=== PATIENT | female | born 1970 | race Caucasian/White ===

== ENCOUNTER → 2018-07-04 09:19 | Outpatient (CLI) | payer OTHER, SELFPAY ==
[2018-07-04 11:50] LABS: HCT 39.3 % (36.0-46.0); HGB 13.4 g/dL (12.0-15.5); Mean Corp. HGB Concentration 34.1 g/dL (32.0-36.0); Mean Corpuscular Hemoglobin 31.5 pg (27.0-33.0); Mean Corpuscular Volume 92.3 fL (80-95); Mean Platelet Volume 10.5 fL (8.0-11.0); Platelet Count 332 x1000/uL (130-400); RBC 4.26 m/cumm (4.00-5.20); RBC Distribution Width 12.9 % (11.7-14.6); White Blood Cell Count 12.84 k/cumm (4.4-10.8)
[2018-07-04 12:08] LABS: ALT 25 U/L (12-78); AST 23 U/L (15-37); Albumin 4.1 g/dL (3.4-5.0); Alkaline Phosphatase 89 U/L (46-116); Anion Gap 11.4 mmol/L (3-11); BUN 9 mg/dL (7-18); Bilirubin, Total 0.5 mg/dL (0.2-1.0); CO2 26.6 mmol/L (21.0-32.0); CREATININE 0.79 mg/dL (0.55-1.02); Calcium 9.9 mg/dL (8.5-10.1); Chloride 106 mmol/L (98-107); Glucose 83 mg/dL (70-100); Potassium 4.9 mmol/L (3.5-5.1); Sodium 144 mmol/L (136-145); TSH (W/Ref FT4) 1.22 uIU/mL (0.358-3.74); Total Protein 7.2 g/dL (6.4-8.2)
== END ==
PROVIDERS: PCP Family Medicine; Visit Provider Family Medicine
DX: D64.9 Anemia, unspecified (principal); R79.89 Other specified abnormal findings of blood chemistry
CPT/HCPCS: 36415; 80053; 85027; 84443

== ENCOUNTER 2018-07-18 11:00 | Outpatient (RCR) | payer OTHER, SELFPAY ==
--- NOTE | 2018-06-23 13:50 | NT_ITS ---
June 23, 2018 Yasmine cancelled todays scheduled appt due to a sick child. Rescheduled for next week.
--- NOTE | 2018-06-28 09:46 | PTTR_ITS ---
DATE: 06/28/18 SUBJECTIVE: Yasmine states that she is felling better in both her hip and neck. She c/o her hip snapping and popping with certain mvmts but denies pain when it happends. OBJECTIVE: Manual therapy: (50054w4). mobilizations of left hip including inferior glides, distractions and ROM. Stretching of hamstrings, ITB, piriformis in various positions. Hip flex/quads in modified Jermaine test position. STM t/o posterior hip and buttock with focus on glut medius, piriformis. CFM over pelvic brim, sacral border and greater trochanter. Declined the need for treatment on cervical region. Therapeutic procedures (40616h3). * x See flow sheet: for glut strength/ stabilization, consisting of bridging , SL hip ABD, clamshells and prone hip extension. * x Provided skilled instruction in proper exercise performance: proper glut engagement. declined the need for modalities. Direct treatment time: 45 min Total treatment time: 45 min.
--- NOTE | 2018-07-07 15:17 | PTTR_ITS ---
DATE: 07/07/18 SUBJECTIVE: Yasmine reports that she is doing well. She is experiencing much less discomfort and finds she can now lie on her side for much longer periods of time. She has been doing her HEP. Finds the prone hip extension ex to be difficult due to weakness. She reports she saw her MD earlier this week who felt she needed to start strengthening due to Yasmine not having estrogen. Yasmine states that she has a gym membership but has not been is quite some time. OBJECTIVE: Manual therapy: (00786j4). mobilizations of left hip including inferior glides and distractions via leg pulls. ROM t/o all planes. Stretching of hamstrings, ITB, piriformis and hip flex/quad in modified Jermaine test position. She went into prone and received continued stretching of quads. STM t/o posterior hip and buttock. PRT's of piriformis and TFL. CFM over greater trochanter.Verbally reviewed HEP, and changed her prone hip extension to standing. She declined cryo post session. She will be on vacation for one week and look to incorporate an in clinic ther ex routine. Direct treatment time: 35 min Total treatment time: 35 min.
--- NOTE | 2018-07-18 11:00 | PTTR_ITS ---
DATE: 07/18/18 SUBJECTIVE: Yasmine reports 85% improvement overall. She is noting significantly less pain, continues to feel kind of global fatigue and weakness, however does note she is looking to get on a more regular exercise regimen, blood work was obtained by her PCP. Has not heard results. Question anemia and possible thyroid. 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 She reports her shoulders are slightly more sore secondary to this. However she was staining a lot of doors, understands that this is normal as this is not a typical routine for her. Manual therapy: (75401w5). Soft tissue stretching to the L hamstring, ITB, piriformis, single knee to chest. This was followed with soft tissue to the L lateral thigh, cross friction over the greater trochanter followed by Therapeutic procedures ([id number]). Progression of stabilization, globally UE/LE working also on core activation. Will follow up with her once in the next week to 2 weeks with continued progression of stabilization, looking to wean from PT services toward a strong independent self management program as her symptoms tolerate. Direct treatment time: 45 mins Total treatment time: 45 mins KW/dl
== END 2018-07-22 23:59 | disposition home or self-care (01) ==
LOC: PT 11:00
PROVIDERS: PCP Family Medicine; Referring Provider Family Medicine; Visit Provider Family Medicine
DX: M25.552 Pain in left hip (principal); M54.2 Cervicalgia; N81.84 Pelvic muscle wasting; N39.3 Stress incontinence (female) (male)
CPT/HCPCS: 97110; 97140

== ENCOUNTER 2018-09-26 11:10 | Outpatient (CLI) | payer OTHER, SELFPAY ==
[2018-09-26 11:25] LABS: Abs Immature Grans 0.04 k/cumm (0.0-0.09); Absolute Basophil Count 0.02 k/cumm (0.0-0.2); Absolute Eosinophil Count 0.18 k/cumm (0.0-0.7); Absolute Lymphocyte Count 3.58 k/cumm (1.2-3.4); Absolute Monocyte Count 0.68 k/cumm (0.11-0.7); Absolute Neutrophil Count 6.78 k/cumm (1.2-6.7); Basophils % 0.2; Eosinophils % 1.6; HCT 35.8 % (36.0-46.0); HGB 12.3 g/dL (12.0-15.5); Immature Grans % 0.4; Lymphocytes % 31.7; Mean Corp. HGB Concentration 34.4 g/dL (32.0-36.0); Mean Corpuscular Hemoglobin 31.5 pg (27.0-33.0); Mean Corpuscular Volume 91.6 fL (80-95); Mean Platelet Volume 9.4 fL (8.0-11.0); Neutrophils % 60.1; Platelet Count 353 x1000/uL (130-400); RBC 3.91 m/cumm (4.00-5.20); RBC Distribution Width 12.6 % (11.7-14.6); White Blood Cell Count 11.28 k/cumm (4.4-10.8)
[2018-09-26 11:40] LABS: ALT 23 U/L (12-78); AST 19 U/L (15-37); Albumin 3.7 g/dL (3.4-5.0); Alkaline Phosphatase 86 U/L (46-116); Anion Gap 9.6 mmol/L (3-11); BUN 14 mg/dL (7-18); Bilirubin, Total 0.2 mg/dL (0.2-1.0); CO2 27.4 mmol/L (21.0-32.0); CREATININE 0.68 mg/dL (0.55-1.02); Calcium 8.6 mg/dL (8.5-10.1); Chloride 103 mmol/L (98-107); Glucose 116 mg/dL (70-100); Potassium 3.8 mmol/L (3.5-5.1); Sodium 140 mmol/L (136-145)
[2018-09-26 21:42] LABS: Estradiol <12 pg/ml
[2018-09-27 09:38] LABS: FSH 23.2 mIU/ml
== END 2018-09-26 11:30 ==
PROVIDERS: PCP Family Medicine; Visit Provider Internal Medicine
DX: Z85.3 Personal history of malignant neoplasm of breast (principal)
CPT/HCPCS: 36415; 80053; 82670; 83001; 85025

== ENCOUNTER 2018-10-09 17:44 | Emergency (ER) | payer OTHER, SELFPAY ==
[2018-10-09] VITALS (33 sets, daily range): BP systolic 121–144; BP diastolic 66–82; PULSE 75–99; RESP 15–26; TEMP 37–37.2; O2SAT 95–99
--- NOTE | 2018-10-09 18:16 | DI.CT_ITS ---
SYMPTOM/DIAGNOSIS: RT SIDED CHEST PAIN, R/O PE CT ANGIOGRAPHY CHEST: 10/09 CT angiography of the chest was performed with intravenous infusion of 60 cc Omnipaque 350. Images obtained through the upper abdomen show unremarkable appearance of visualized portions of liver, spleen, pancreas, adrenals and kidneys. There is no evidence of pulmonary embolic disease. No thoracic aortic aneurysm or dissection. No mediastinal mass or adenopathy. Tracheobronchial tree appears intact. There is mild apical pleural thickening at the right lung apex which is nonspecific. No previous CT available for comparison. The possibility of neoplastic disease statistically unlikely but follow up chest CT should probably be obtained in six months to re-evaluate this area. Otherwise, lungs are clear. No pleural effusion seen. No pneumothorax. CONCLUSION: No evidence of acute pulmonary embolic disease or other significant acute finding. Asymmetric right apical pleural based radiodensities probably related to scarring, neoplastic disease not entirely excluded and follow up chest CT recommended in six months.
--- NOTE | 2018-10-09 18:16 | DI.CT_ITS ---
SYMPTOM/DIAGNOSIS: RT SIDED NECK PAIN, FEVER, R/O ABSCESS VS MASS CT NECK: 10/09 CT examination of the cervical region was performed with intravenous infusion of 40 cc Omnipaque 350. Tracheolaryngeal structures appear intact. No superior mediastinal mass or adenopathy. No neck mass or adenopathy. Vascular structures appear intact. Right apical pleural thickening again noted as seen on chest CT, 6 month follow up chest CT recommended. Orbital structures and visualized temporal bone structures appear intact. The visualized paranasal sinuses and mastoid air cells are clear. Salivary glands are unremarkable in appearance. CONCLUSION: No neck mass identified. No evidence of abscess. Right apical pleural thickening noted, nonspecific, follow up chest CT recommended in 6-months to rule out neoplastic disease.
--- NOTE | 2018-10-09 18:16 | DI.CT_ITS ---
SYMPTOM/DIAGNOSIS: RT SIDED HEADACHE/EAR PAIN, R/O ACUTE DISEASE CRANIAL CT (WITHOUT CONTRAST): 10/[address] was performed. The ventricular system is normal in appearance. There is no evidence of an intracranial mass lesion. There is no evidence of a subdural or epidural hematoma. No focal areas of decreased attenuation are seen. CONCLUSION: Normal noncontrast Cranial CT.
--- NOTE | 2018-10-09 18:31 | ED.GENADUL_ITS ---
Discharge Plan Disposition Patient Disposition: STILL A PATIENT Condition: Stable Discharge Details Chief Complaint: GenMedical Clinical Impression: Ear pain, right, Neck pain on right side, Right-sided chest pain Primary Care Provider: Kati Rubio ED Provider: Kait Mandel Home Meds and New Rx's Prescriptions: New clindamycin HCl 150 mg capsule 450 mg PO TID 7 Days Qty: 63 RF: 0 azithromycin 250 mg tablet See Label Instructions .ROUTE .COMPLEX Qty: 6 RF: 0 Continue multivitamin [Multi-Day] 1 EACH tablet 1 ea PO DAILY RF: 0 tamoxifen 20 MG tablet 20 mg PO DAILY RF: 0 ibuprofen 800 MG tablet 800 mg PO BID RF: 0 levothyroxine 50 MCG tablet 50 mcg PO DAILY Qty: 90 RF: 12 omeprazole magnesium [Prilosec OTC] 20 mg tablet,delayed release (DR/EC) 20 mg PO DAILY Qty: 90 RF: 12 amoxicillin 500 mg tablet 500 mg PO TID Qty: 21 RF: 0 loratadine [Claritin RediTabs] 10 MG tablet,disintegrating 1 tab PO DAILY PRNRF: 0 acetaminophen 650 mg Tablet Extended Release 1,300 mg PO BID RF: 0 naproxen sodium [Aleve] 220 mg Capsule 220 mg PO BID PRNRF: 0 Discharge Instructions Instructions: Chest Pain (ED), Earache (ED), Pneumonia (ED), Neck Pain (ED) Additional Instructions: If your symptoms do not improve or worsen over the next few days, you may start the antibiotics. Be aware of any change in symptoms, including development of rash which may indicate shingles. Call your primary care doctor tomorrow to schedule follow-up appointment for reevaluation. Return immediately to the emergency department any worsening or new concerning symptoms. Referrals: Kati Rubio MD, [place] [Primary Care Provider] - Discharge Data Discharge Date/Time-TO BE ENTERED AT DEPARTURE: 10/09/18 21:36 Discharge Physician: Kait Mandel Medical Decision Making <Kait Mandel DO - Last Filed: 10/10/18 10:03> 48 yo M w/ a h/o breast cancer treated with chemo and radiation in remission since 2011 who presents with right sided head, ear, face, neck and chest pain for the past 5-days. Finished amoxicillin 5 days ago for a sinus infection which is since resolved. She does admit to fever of 101.4 today. She also admits to shortness of breath. She states the pain in her neck and chest is worse with deep breath and palpation and movement of her head. Heart rate 90s. Blood pressure mildly hypertensive. Afebrile. Normal oxygen saturation and respiratory rate. Patient appears mildly uncomfortable with movement of her head. Normal ENT exam. Right anterior chest tender to palpation. No rash noted on exam. Differential diagnosis includes possible ENT/neck/respiratory infectious process , shingles, PE, lymphatic process due to lymph node resection on R s/p mastectomy. Will place an IV, bolus IV fluids, cardiac workup, EKG, CT head/neck/chest to rule out PE. EKG notes a rate of 95, sinus, occasional PVCs. No acute ST elevation or depression. QTc 470. QRS 90. 1999 --labs reviewed and note a white blood cell count of 14.6. Remainder of labs unremarkable. Troponin negative. CT head and CT chest negative. CT neck pending. Pt feels better after toradol, pain decreased. 2039 --case endorsed to Dr. Fields to follow-up on CT neck. CT neck negative, will send home with a prescription for clindamycin to start if symptoms do not improve or worsen as patient complained of a fever and had an elevated white blood cell count. Discussed with patient that her symptoms could be due to possible infectious process, or shingles and to be aware of any development of rash. She is instructed to call her primary care doctor for reevaluation and to return here if worse. <Narinder Fields, - Last Filed: 10/09/18 21:21> The case was signed out to me my my colleague Dr. Mandel. Plan was pending CT scan of the neck. If the neck CT showed no significant abnormality requiring intervention the patient will be discharged home with clindamycin. Patient CT scan of the neck demonstrates no neck abscess or mass, normal bilateral apical groundglass opacities that are nonspecific and right apical pleural thickening. Patient maintains hemodynamic stability, no fever, no significant tachycardia. And reassuring vital signs in general. Because of the elevated white count, a prescription will be given for clindamycin for uncertain infectious etiology. IMPRESSION: 1. No neck abscess or mass identified. 2. Minimal bilateral apical groundglass opacities, nonspecific. 3. Right apical pleural thickening. Dictated and Authenticated by: Max Cowan MD. HPI <Kait Alanis Mandel DO - Last Filed: 10/10/18 10:03> General Mode of arrival: ambulatory . Date/Time Provider Initiated Documentation: 10/09/18 17:55 . Limitations to Documentation: no limitations . Information obtained by: patient . HPI Narrative: Patient is a 48-year-old female with a history of breast cancer in remission since 2011 on tamoxifen who presents with right sided head, ear, throat, neck and chest pain for the past 5 days. Patient states the pain started in the right side of her head and neck and then went down into her chest. She states the pain in her neck and right chest is worse with deep breath. She admits to some shortness of breath. She states her chest pain is intermittent and aching and worse with palpation and deep breath. She states the pain is currently 5/10. She admits to some relief with Advil. She does admit to pain within her right ear and a sore throat. She does admit to a fever today of 101.4. She states she finished amoxicillin 5 days ago for a sinus infection. She states she was not seen by her PCP but the antibiotic was called into the pharmacy. She states she had been having nasal congestion and discharge which has since resolved. She denies rash, recent travel, surgeries or leg pain or swelling. Past medical history: Breast cancer, treated with chemo & radiation and mastectomy in 2011, hypothyroidism Surgical History: Cholecystectomy, tonsillectomy, lymph node resection, right partial mastectomy Social history: Occasional tobacco, drinks 3 times weekly, denies drugs Medications: Tamoxifen, Synthroid, Claritin Allergies: Effexor, fluconazole PCP: Dr. Rubio Related Data Home Medications Medication Instructions Recorded Confirmed multivitamin [Multi-Day] 1 ea PO DAILY 06/22/13 10/09/18 tamoxifen 20 mg PO DAILY tab-cap 06/22/13 10/09/18 loratadine [Claritin RediTabs] 1 tab PO DAILY PRN 12/12/15 10/09/18 ibuprofen 800 mg PO BID 02/02/17 10/09/18 levothyroxine 50 mcg PO DAILY #90 tab-cap 07/11/18 10/09/18 omeprazole magnesium 20 mg 20 mg PO DAILY #90 tab-cap 08/22/18 10/09/18 tablet,delayed release amoxicillin 500 mg tablet 500 mg PO TID #21 tab 09/28/18 acetaminophen 1,300 mg PO BID 10/09/18 10/09/18 azithromycin See Label Instructions .ROUTE 10/09/18 .COMPLEX #6 tab clindamycin HCl 450 mg PO TID 7 Days #63 cap 10/09/18 naproxen sodium [Aleve] 220 mg PO BID PRN 10/09/18 10/09/18 Previous Rx's Medication Instructions Recorded levothyroxine 50 mcg PO DAILY #90 tab-cap 07/11/18 omeprazole magnesium 20 mg 20 mg PO DAILY #90 tab-cap 08/22/18 tablet,delayed release amoxicillin 500 mg tablet 500 mg PO TID #21 tab 09/28/18 azithromycin See Label Instructions .ROUTE 10/09/18 .COMPLEX #6 tab clindamycin HCl 450 mg PO TID 7 Days #63 cap 10/09/18 Allergies Allergy/AdvReac Type Severity Reaction Status Date / Time fluconazole Allergy Intermediate TONGUE AND Verified 10/09/18 17:55 LIPS SWELLING latex Allergy RASH Verified 10/09/18 17:55 adhesive AdvReac Intermediate RASH Verified 10/09/18 17:55 venlafaxine HCl AdvReac NAUSEA Verified 10/09/18 17:55 [From Effexor] General Stated Complaint: GenMedical LELE: 3 Review of Systems <Kait Mandel DO - Last Filed: 10/10/18 10:03> Review of Systems All systems reviewed & are unremarkable except as noted in HPI and below Constitutional Denies chills, Denies excessive sweating, Denies fatigue, Reports fever(s), Denies weakness and Denies weight loss Eyes Reports system reviewed and no additional complaints, except as docu and Denies blurry vision ENT Denies vertigo, Denies dizziness, Reports otalgia, Denies nasal congestion, Reports sore throat and Denies throat swelling Cardiovascular Reports chest pain, Denies syncope, Denies rapid heart rate and Denies dyspnea Respiratory Denies dyspnea Gastrointestinal Denies abdominal pain, Denies diarrhea and Denies vomiting Genitourinary Denies hematuria, Denies dysuria and Denies flank pain Musculoskeletal Denies back pain and Denies joint swelling Integumentary/Breasts Denies lesions and Denies rash Neurologic Denies behavioral changes, Denies confusion, Denies vertigo, Denies dizziness, Denies syncope and Denies weakness Psychiatric Denies behavioral changes, Denies confusion and Denies depression Endocrine Denies excessive sweating and Denies fatigue Hematologic/Lymphatic Denies easy bruising and Denies lymphadenopathy Allergic/Immunologic Denies throat swelling Exam <Kait Mandel DO - Last Filed: 10/10/18 10:03> Const General: cooperative and healthy appearing Orientation: alert and awake HENRI Head: normal to inspection Ears: hearing grossly normal bilaterally, external ears normal and TM's normal bilaterally General nose exam: external nose normal Face and sinus: normal facial exam Mouth: oral mucosae normal Teeth and gingiva: dentition normal Throat: posterior oropharynx normal Eyes General: appearance normal, both eyes and all related structures Eyelids: eyelids normal Pupils: PERRL EOM: EOM intact bilaterally Neck Neck: normal visual inspection Lymphatic: no lymphadenopathy noted Chest Chest: normal inspection of the chest and tenderness (R anterior chest) Resp Effort & Inspection: normal respiratory effort and able to speak in complete sentences Auscultation: clear to auscultation bilaterally Cardio Rate: regular rate Rhythm: regular rhythm GI Inspection: normal to inspection Palpation: soft, not firm, no guarding, no hepatosplenomegaly, no masses and nontender Auscultation: normal bowel sounds Skin General skin exam: no rashes or lesions noted Neuro General: alert, awake and oriented x3 Cranial Nerves: CN's II-XI intact bilaterally Cognition: normal cognition Speech: speech normal Gait: normal gait Motor: muscle tone normal throughout and strength 5/5 throughout Sensory Exam: no sensory deficits noted Extrem General: normal to inspection, full ROM and normal capillary refill Psych Appearance: grossly normal Mental Status: mental status grossly normal Speech and Movement: speech and movement normal Affect: normal affect Thought Process: normal Course <Kait Mandel DO - Last Filed: 10/10/18 10:03> Vital Signs Temperature 98.6 F 10/09/18 17:50 Pulse 97 H 10/09/18 17:50 Respiratory Rate 23 10/09/18 17:50 Blood Pressure 144/77 H 10/09/18 17:50 Pulse Oximetry 96 10/09/18 17:50 Temperature 98.6 F 10/09/18 17:50 Temperature Source Temporal Artery Scan 10/09/18 17:50 Pulse 96 H 10/09/18 18:08 Respiratory Rate 18 10/09/18 18:08 Respiratory Effort Non-Labored 10/09/18 18:08 Respiratory Depth Normal 10/09/18 18:08 Respiratory Pattern Normal 10/09/18 18:08 Blood Pressure 129/80 10/09/18 18:08 Blood Pressure Position Supine 10/09/18 17:50 Pulse Oximetry 96 10/09/18 18:08 Oxygen Delivery Method Room Air 10/09/18 17:50 Oxygen Flow Rate 0 10/09/18 17:50 Pain Level 5 10/09/18 17:50
[2018-10-09 18:34] LABS: Abs Immature Grans 0.03 k/cumm (0.0-0.09); Absolute Basophil Count 0.04 k/cumm (0.0-0.2); Absolute Eosinophil Count 0.35 k/cumm (0.0-0.7); Absolute Lymphocyte Count 4.73 k/cumm (1.2-3.4); Absolute Monocyte Count 0.89 k/cumm (0.11-0.7); Basophils % 0.3; Eosinophils % 2.4; HCT 36.4 % (36.0-46.0); HGB 12.7 g/dL (12.0-15.5); Immature Grans % 0.2; Lymphocytes % 32.4; Mean Corp. HGB Concentration 34.9 g/dL (32.0-36.0); Mean Corpuscular Hemoglobin 31.8 pg (27.0-33.0); Mean Platelet Volume 9.6 fL (8.0-11.0); Monocytes % 6.1; Neutrophils % 58.6; Platelet Count 314 x1000/uL (130-400); RBC Distribution Width 12.7 % (11.7-14.6); White Blood Cell Count 14.61 k/cumm (4.4-10.8)
[2018-10-09] MEDS: Normal Saline 1,000 ML 1000 ML IV (18:34)
[2018-10-09 18:36] LABS: Absolute Neutrophil Count 8.56 k/cumm (1.2-6.7)
[2018-10-09 18:49] LABS: ALT 24 U/L (12-78); AST 21 U/L (15-37); Albumin 3.7 g/dL (3.4-5.0); Alkaline Phosphatase 84 U/L (46-116); Anion Gap 11.5 mmol/L (3-11); BUN 18 mg/dL (7-18); Bilirubin, Total 0.3 mg/dL (0.2-1.0); CO2 25.5 mmol/L (21.0-32.0); Calcium 9.5 mg/dL (8.5-10.1); Chloride 105 mmol/L (98-107); Glucose 107 mg/dL (70-100); Magnesium 1.9 mg/dL (1.8-2.4); Potassium 3.4 mmol/L (3.5-5.1); Sodium 142 mmol/L (136-145)
[2018-10-09 18:50] LABS: Troponin I < 0.02 ng/mL (0.00-0.06)
[2018-10-09] MEDS: Omnipaque 350 MG/ML 100 ML BTL IJ (19:35)
[2018-10-09] MEDS: Ketorolac 30 MG/ML VIAL IVP (19:46)
--- NOTE | 2018-10-09 19:52 | DI.VRAD_ITS ---
EXAM: CT Head Without Intravenous Contrast EXAM DATE/TIME: 10/09/2018 6:19 PM CLINICAL HISTORY: 48 years old, female; Pain; Headache; Other: RT sided; Patient HX: Recent sinus infection, ear and head pain (rt sided) TECHNIQUE: Axial computed tomography images of the head/brain without intravenous contrast. All CT scans at this facility use at least one of these dose optimization techniques: automated exposure control; mA and/or kV adjustment per patient size (includes targeted exams where dose is matched to clinical indication); or iterative reconstruction. Coronal and sagittal reformatted images were created and reviewed. COMPARISON: MRI - BRAIN W/WO CONTRAST 02/24/2016 8:16 AM FINDINGS: Brain: Normal. No hemorrhage. No significant white matter disease. No edema. Ventricles: Normal. No ventriculomegaly. Bones/joints: Normal. No acute fracture. Sinuses: Small mucous attention cyst/polyp of the left sphenoid sinus. Mastoid air cells: Normal as visualized. No mastoid effusion. Soft tissues: Normal. IMPRESSION: No acute intracranial abnormality. Dictated and Authenticated by: Tima Grande MD. Ordering:LALO MAYO MD
--- NOTE | 2018-10-09 20:01 | DI.VRAD_ITS ---
EXAM: CT Angiography Chest With Intravenous Contrast EXAM DATE/TIME: 10/09/2018 6:19 PM CLINICAL HISTORY: 48 years old, female; Pain; Chest pain; Right-sided chest pain; Additional info: 18 g lt forearm, only iv possible TECHNIQUE: Axial computed tomographic angiography images of the chest with intravenous contrast using CT angiography protocol. All CT scans at this facility use at least one of these dose optimization techniques: automated exposure control; mA and/or kV adjustment per patient size (includes targeted exams where dose is matched to clinical indication); or iterative reconstruction. Coronal and sagittal reformatted images were created and reviewed. MIP reconstructed images were created and reviewed. CONTRAST: 60 ml of Omnipaque 350 administered intravenously. COMPARISON: CT Chest / Abdomen / P 12/04/2011 1:56 PM FINDINGS: Pulmonary arteries: Normal. No pulmonary emboli. Aorta: Normal. No aortic aneurysm. No aortic dissection. Lungs: Normal. No consolidation. No masses. Pleural space: Right apical pleural scarring. Heart: Normal. No cardiomegaly. No pericardial effusion. Bones/joints: Unremarkable. No acute fracture. Soft tissues: Unremarkable. Lymph nodes: Unremarkable. No enlarged lymph nodes. IMPRESSION: No pulmonary embolism. Dictated and Authenticated by: Tima Grande MD. Ordering:LALO MAYO MD
--- NOTE | 2018-10-09 20:53 | DI.VRAD_ITS ---
EXAM: CT Neck With Intravenous Contrast EXAM DATE/TIME: 10/09/2018 6:19 PM CLINICAL HISTORY: 48 years old, female; Pain; Neck pain and throat pain; Patient HX: RT sided neck pain, fever, rule out abscess or mass; Additional info: PT received 60 ml 5 min prior to second injection of 40 ml TECHNIQUE: Axial computed tomography images of the neck with intravenous contrast. All CT scans at this facility use at least one of these dose optimization techniques: automated exposure control; mA and/or kV adjustment per patient size (includes targeted exams where dose is matched to clinical indication); or iterative reconstruction. Coronal and sagittal reformatted images were created and reviewed. CONTRAST: 40 ml of Omnipaque 350 administered intravenously. COMPARISON: CR CERV SP.WITH OBL OR FLEX/EXT 04/28/2018 3:08 PM FINDINGS: Nasopharynx: Normal. Oropharynx: Normal. No significant tonsillar enlargement. No peritonsillar abscess. Hypopharynx: Normal. Larynx: Normal. Normal epiglottis. Trachea: Normal. Retropharyngeal space: Unremarkable retropharyngeal soft tissues. Submandibular/Parotid glands: Normal. Glands are normal in size. Thyroid: Normal. No enlarged or calcified nodules. Bones/joints: Normal. No acute fracture. Soft tissues: Normal. No significant soft tissue swelling. No mass or abscess identified. Vasculature: No acute findings. Lymph nodes: Small nonspecific lymph nodes within the visualized portions of the upper mediastinum. Lung apices: Paraseptal emphysema within the lung apices. Bilateral upper lung zone patchy groundglass opacities, nonspecific. Right apical pleural thickening. IMPRESSION: 1. No neck abscess or mass identified. 2. Minimal bilateral apical groundglass opacities, nonspecific. 3. Right apical pleural thickening. Dictated and Authenticated by: Max Cowan MD. Ordering:LALO MAYO MD
== END 2018-10-09 21:36 | disposition still patient (30) ==
PROVIDERS: Emergency Provider Physician Assistant; PCP Family Medicine
DX: H92.01 Otalgia, right ear (principal); M54.2 Cervicalgia; R07.89 Other chest pain; R50.9 Fever, unspecified; D72.829 Elevated white blood cell count, unspecified; Z85.3 Personal history of malignant neoplasm of breast; Z90.11 Acquired absence of right breast and nipple
CPT/HCPCS: 36415; 70491; 71275; 80053; 81025; 93005; 96361; 96374; 99285; 70450; 83735; 84484; 85025; 93010; J1885; J3490

== ENCOUNTER 2018-10-25 08:56 | Outpatient (CLI) | payer OTHER, SELFPAY ==
[2018-10-25 11:54] LABS: Abs Immature Grans 0.04 k/cumm (0.0-0.09); Absolute Basophil Count 0.04 k/cumm (0.0-0.2); Absolute Eosinophil Count 0.24 k/cumm (0.0-0.7); Absolute Lymphocyte Count 3.65 k/cumm (1.2-3.4); Absolute Monocyte Count 0.62 k/cumm (0.11-0.7); Absolute Neutrophil Count 5.96 k/cumm (1.2-6.7); Basophils % 0.4; Eosinophils % 2.3; HCT 37.5 % (36.0-46.0); HGB 12.6 g/dL (12.0-15.5); Immature Grans % 0.4; Lymphocytes % 34.6; Mean Corp. HGB Concentration 33.6 g/dL (32.0-36.0); Mean Corpuscular Hemoglobin 30.8 pg (27.0-33.0); Mean Corpuscular Volume 91.7 fL (80-95); Mean Platelet Volume 9.8 fL (8.0-11.0); Monocytes % 5.9; Neutrophils % 56.4; Platelet Count 329 x1000/uL (130-400); RBC 4.09 m/cumm (4.00-5.20); RBC Distribution Width 12.9 % (11.7-14.6); White Blood Cell Count 10.55 k/cumm (4.4-10.8)
[2018-10-25 12:26] LABS: ALT 32 U/L (12-78); AST 28 U/L (15-37); Albumin 3.7 g/dL (3.4-5.0); Alkaline Phosphatase 72 U/L (46-116); Anion Gap 11.3 mmol/L (3-11); BUN 17 mg/dL (7-18); Bilirubin, Total 0.5 mg/dL (0.2-1.0); CO2 24.7 mmol/L (21.0-32.0); CREATININE 0.73 mg/dL (0.55-1.02); Calcium 9.3 mg/dL (8.5-10.1); Chloride 104 mmol/L (98-107); Glucose 86 mg/dL (70-100); Potassium 4.4 mmol/L (3.5-5.1); Sodium 140 mmol/L (136-145); Total Protein 6.8 g/dL (6.4-8.2)
== END 2018-10-25 09:16 ==
PROVIDERS: PCP Family Medicine; Visit Provider Family Medicine
DX: E87.6 Hypokalemia (principal); F17.200 Nicotine dependence, unspecified, uncomplicated; J20.9 Acute bronchitis, unspecified
CPT/HCPCS: 80053; 85025

== ENCOUNTER 2018-12-20 00:47 | Outpatient (CLI) | payer OTHER, SELFPAY ==
--- NOTE | 2018-12-20 15:46 | DI.RAD_ITS ---
SYMPTOM/DIAGNOSIS: PNEUMONIA, J18.9, ABNL CT PA AND LATERAL CHEST: Comparison is made with 11/08/15 chest xray and chest CT dated 10/09/18. There is no pleural effusion or pulmonary edema seen. The minimal scarring at the right lung apex is not well seen on chest xray. The chest xray appears unchanged from 2015. IMPRESSION: Negative chest xray.
== END 2018-12-20 01:07 ==
PROVIDERS: PCP Family Medicine; Visit Provider Family Medicine
DX: J18.9 Pneumonia, unspecified organism (principal)
CPT/HCPCS: 71046

== ENCOUNTER 2019-01-27 01:04 | Outpatient (CLI) | payer OTHER, SELFPAY ==
[2019-01-27 14:07] LABS: HCT 36.5 % (36.0-46.0); HGB 12.4 g/dL (12.0-15.5); Mean Corpuscular Hemoglobin 31.2 pg (27.0-33.0); Mean Corpuscular Volume 91.7 fL (80-95); Mean Platelet Volume 9.4 fL (8.0-11.0); Platelet Count 310 x1000/uL (130-400); RBC 3.98 m/cumm (4.00-5.20); RBC Distribution Width 12.4 % (11.7-14.6)
[2019-01-27 16:05] LABS: ALT 34 U/L (12-78); AST 23 U/L (15-37); Alkaline Phosphatase 83 U/L (46-116); BUN 9 mg/dL (7-18); Bilirubin, Total 0.3 mg/dL (0.2-1.0); CREATININE 0.75 mg/dL (0.55-1.02); Calcium 9.7 mg/dL (8.5-10.1); Chloride 103 mmol/L (98-107); Glucose 99 mg/dL (70-100); Potassium 4.3 mmol/L (3.5-5.1); Sodium 142 mmol/L (136-145); TSH (W/Ref FT4) 1.51 uIU/mL (0.358-3.74); Total Protein 7.2 g/dL (6.4-8.2); Vitamin B12 639 pg/mL (193-986)
== END 2019-01-27 01:24 ==
PROVIDERS: PCP Family Medicine; Visit Provider Family Medicine
DX: Z00.00 Encounter for general adult medical examination without abnormal findings (principal); E03.9 Hypothyroidism, unspecified; R53.81 Other malaise; R53.83 Other fatigue; R79.89 Other specified abnormal findings of blood chemistry
CPT/HCPCS: 36415; 80053; 85027; 82607; 84443

== ENCOUNTER 2019-05-18 08:59 | Outpatient (REF) | payer OTHER, SELFPAY ==
--- NOTE | 2019-05-18 08:30 | PAPFT_PTH ---
PATIENT: Yasmine Matthew LOC: [facility] U#:[id number] AGE/SX: 48/F ROOM: RE05/18/[address]: JACQUES Salcedo : 1970 BED: DIS: 05/18/2019 SPEC #: [id number] RECD: 05/18/19 13:02 STATUS: NAMRATA QUINTEROS #: [id number] RENE: 05/18/19 08:[address]: Tatyana Lee DEPT: [facility] Cytology RECD BY: Jolene Ram ENTERED: 05/18/19 13:02 SP TYPE: PAPFT KARISHMA DR: Kati Rubio MD, DC Tissues: 1 - CX/ENDOCX FOR PAP SMEARS Procedures: PAP THIN PREP/U[facility] Screening HPV DNA PROBE Comments: [id number]
== END 2019-05-18 09:19 ==
LOC: LBN 08:59
PROVIDERS: PCP Family Medicine; Visit Provider Nurse Practitioner Family
DX: R35.0 Frequency of micturition (principal); Z12.4 Encounter for screening for malignant neoplasm of cervix; Z11.51 Encounter for screening for human papillomavirus (HPV)
CPT/HCPCS: 88142; 87086; 87624

== ENCOUNTER 2019-05-26 13:03 | Outpatient (REF) | payer OTHER, SELFPAY ==
--- NOTE | 2019-05-26 11:45 | VUL_PTH ---
PATIENT: Yasmine Matthew LOC: [facility] U#:[id number] AGE/SX: 49/F ROOM: RE05/26/[address]: Wiley Garcia MD : 1970 BED: DIS: 05/26/2019 SPEC #: [id number] RECD: 05/29/19 12:38 STATUS: NAMRATA REDot #: [id number] RENE: 05/26/19 11:[address]: Wiley Garcia DEPT: Surgical Specimen RECD BY: Jolene Ram ENTERED: 05/29/19 12:39 SP TYPE: VUL OTHR DR: Kati Rubio MD, DC Tatyana Lee INJECTION OPERATOR Tissues: 1 - VULVA BIOPSY Procedures: GROSS AND MICRO LEVEL 4 Comments: [id number]
== END 2019-05-26 13:23 ==
LOC: LBN 13:03
PROVIDERS: PCP Family Medicine; Visit Provider Obstetrics & Gynecology
DX: N90.1 Moderate vulvar dysplasia (principal)
CPT/HCPCS: 88305

== ENCOUNTER 2019-06-08 01:13 | Outpatient (CLI) | payer OTHER, SELFPAY ==
--- NOTE | 2019-06-08 07:58 | DI.US_ITS ---
SYMPTOM/DIAGNOSIS: LONG HISTORY OF TAMOXIFEN USE Z79.810 PELVIC ULTRASOUND: A transabdominal and transvaginal examination was carried out. The uterus is retroverted measuring 6.8 cm in length, 4.0 cm in height and 4.8 cm in width. The endometrium is heterogeneous and is 6.3 mm thick. The right ovary measures 1.5 x 1.2 x 09 cm. The left ovary 1.8 x 0.7 x 0.7 cm. There is no evidence of free fluid in the cul de sac. SUMMARY: The endometrial stripe measures 6.23 mm in thickness and is heterogeneous. The examination is otherwise unremarkable.
== END 2019-06-08 01:33 ==
PROVIDERS: PCP Family Medicine; Visit Provider Obstetrics & Gynecology
DX: Z79.810 Long term (current) use of selective estrogen receptor modulators (SERMs) (principal); N85.4 Malposition of uterus
CPT/HCPCS: 76830; 76856

== ENCOUNTER 2019-07-20 06:16 | Day surgery (SDC) | payer OTHER, SELFPAY ==
[2019-07-20 06:28] VITALS: BP 118/76; PULSE 91; RESP 18; TEMP 36.4; O2SAT 99
[2019-07-20 07:03] LABS: HCT 36.6 % (36.0-46.0); HGB 12.4 g/dL (12.0-15.5); Mean Corp. HGB Concentration 33.9 g/dL (32.0-36.0); Mean Corpuscular Hemoglobin 31.6 pg (27.0-33.0); Mean Corpuscular Volume 93.4 fL (80-95); Mean Platelet Volume 9.8 fL (8.0-11.0); Platelet Count 330 x1000/uL (130-400); RBC 3.92 m/cumm (4.00-5.20); RBC Distribution Width 12.4 % (11.7-14.6); White Blood Cell Count 10.12 k/cumm (4.4-10.8)
[2019-07-20] MEDS: Lactated Ringers 1,000 ML 125 ML IV (07:45)
[2019-07-20] MEDS: Lidocaine 1% Multi-Dose 50 ML VIAL (08:14)
--- NOTE | 2019-07-20 08:21 | ENDOMET_PTH ---
PATIENT: Yasmine Matthew LOC: [facility] U#:[id number] AGE/SX: 49/F ROOM: RE07/20/[address]: Wiley Garcia MD : [id number] BED: DIS: 07/20/2019 SPEC #: [id number] RECD: 07/20/19 12:12 STATUS: NAMRATA QUINTEROS #: [id number] RENE: 07/20/19 08:[address]: Wiley Garcia DEPT: Surgical Specimen RECD BY: Jolene Ram ENTERED: 07/20/19 12:13 SP TYPE: Endomet OTHR DR: Kati Rubio MD, DC Tissues: 1 - ENDOMETRIUM BX/CURRETTE 2 - VULVA BIOPSY Procedures: GROSS AND MICRO LEVEL 4 GROSS AND MICRO LEVEL 6 Comments: [id number]
[2019-07-20] MEDS: Bupivacaine 0.25% Pres-Free 30 ML VIAL (08:27)
[2019-07-20 08:49] VITALS: BP 92/56; PULSE 82; RESP 16; TEMP 36.7; O2SAT 96
[2019-07-20 08:54] VITALS: BP 90/69; PULSE 82; RESP 15; TEMP 36.7; O2SAT 97
[2019-07-20 08:59] VITALS: BP 99/63; PULSE 76; RESP 14; TEMP 36.7; O2SAT 98
[2019-07-20 09:04] VITALS: BP 101/75; PULSE 82; RESP 20; TEMP 36.7; O2SAT 99
[2019-07-20 10:19] VITALS: BP 109/73; PULSE 71; RESP 16; TEMP 36.2; O2SAT 97
--- NOTE | 2019-07-21 21:46 | W.PM.OP ---
Date of service: 07/20/19 Operative Note DATE OF PROCEDURE: 07/20/19 PRE-OP DIAGNOSIS: 1. Thickened endometrium 2. OUMAR 2 POST-OP DIAGNOSIS: same PROCEDURE: 1. Hysteroscopy D&C 2. Wide local exicsion of vulvar lesion SURGEON: Wiley Garcia ANESTHESIA: LIZ ESTIMATED BLOOD LOSS: 30 PATHOLOGY: other (1. Endometrial curettings. 2. Vulvar lesion) COMPLICATIONS: None Patient was transported to: PACU Patient's condition: stable Indications: 1. Thickened endometrium on ultrasound with a history of tamoxifen use. 2. Vulvar biopsy yielding OUMAR 2 with positive margins. Findings: The patient was examined immediately preoperatively. The vulvar lesion that had previously been excised in the office was no longer visible. I was not able to visualize any vulvar lesion on exam. With the assistance of the patient the area of excision was marked with a marking pen. Procedure Description: The patient was taken to the operating room and after an adequate level of general anesthesia was obtained the patient was placed in lithotomy position. The patient was prepped and draped in usual sterile manner. A weighted speculum was placed in the vagina with good visualization of the cervix. A paracervical block with 10 cc 1% plain lidocaine solution was instilled. A single-tooth tenaculum was placed on the anterior lip of the cervix. A 5 mm 30 degree hysteroscope was advanced to the cervix with good visualization of the endometrial cavity. The majority of the endometrial cavity appeared normal and atrophic in appearance. There was a small region near the internal loss that appeared thickened slightly and polypoid. The hysteroscope was removed. A sharp loop curette was used to perform a curettage of the endometrial cavity and particularly overlying the abnormal area noted on hysteroscopy. Specimens were submitted to pathology. The weighted speculum was removed. The region of the previous biopsy that had been marked immediately preoperatively was identified. This was at the introitus. An elliptical incision was made with a #10 scalpel. The total length of the excision was approximately 3 cm. To achieve an appropriate anatomic result closure was completed vertically with interrupted sutures of 3-0 Vicryl similar to the technique of an episiotomy repair. Excellent hemostasis was noted. The procedure was concluded at this point. Sponge lap and needle counts were correct at the conclusion of the procedure and the patient was transferred to PACU in stable condition.
== END 2019-07-20 10:35 | disposition home or self-care (01) ==
PROVIDERS: PCP Family Medicine; Visit Provider Obstetrics & Gynecology
PROC: 0UDB8ZZ Extraction of Endometrium, Via Natural or Artificial Opening Endoscopic (ICD-10-PCS; CPT 58558; principal; 2019-07-20 07:30)
PROC: (CPT 58558; 2019-07-20 07:30)
DX: N90.1 Moderate vulvar dysplasia (principal); N85.8 Other specified noninflammatory disorders of uterus; R93.89 Abnormal findings on diagnostic imaging of other specified body structures; Z85.3 Personal history of malignant neoplasm of breast; Z79.810 Long term (current) use of selective estrogen receptor modulators (SERMs); Z72.0 Tobacco use
CPT/HCPCS: 58558; 11423; 85027; 86850; 86900; 86901; 88305; 88309; J0131; J1100; J1885; J2405

== ENCOUNTER 2019-10-25 13:32 | Outpatient (CLI) | payer OTHER, SELFPAY | END 2019-10-25 13:52 | PROVIDERS: PCP Family Medicine; Visit Provider Family Medicine | DX: E03.9 Hypothyroidism, unspecified (principal) | CPT/HCPCS: 36415; 84443 ==

== ENCOUNTER 2019-10-28 13:53 | Emergency (ER) | payer OTHER, SELFPAY ==
[2019-10-28 13:57] VITALS: BP 150/92; PULSE 104; RESP 18; TEMP 36.9; O2SAT 98
--- NOTE | 2019-10-28 14:28 | ED.GENADUL_ITS ---
Discharge Plan Disposition Patient Disposition: HOME Condition: Stable Discharge Details Chief Complaint: Laceration Clinical Impression: Finger laceration Primary Care Provider: Kati Rubio ED Provider: Kait Mandel Home Meds and New Rx's Prescriptions: Continued Symbicort 160-4.5 mcg/actuation HFA aerosol inhaler 2 puff IH BID PRNRF: 0 albuterol sulfate [ProAir HFA] 90 mcg/actuation HFA aerosol inhaler 2 puff IH QID PRN (Reason: bronchospasm) Qty: 18 RF: 5 multivitamin [Multi-Day] 1 EACH tablet 1 ea PO DAILY RF: 0 tamoxifen 20 MG tablet 20 mg PO HS RF: 0 ibuprofen 800 MG tablet 800 mg PO BID RF: 0 levothyroxine 50 mcg tablet 50 mcg PO DAILY Qty: 90 RF: 12 Prilosec OTC 20 mg tablet,delayed release (DR/EC) 20 mg PO DAILY Qty: 90 RF: 12 loratadine [Claritin RediTabs] 10 MG tablet,disintegrating 1 tab PO DAILY PRNRF: 0 acetaminophen 650 mg Tablet Extended Release 650 mg PO BID RF: 0 Discharge Instructions Instructions: Finger Laceration (ED) Additional Instructions: Keep wound clean and dry. If risk of contamination, cover with bandage. If resting at home, you can remove bandage to keep open to air. If you develop any redness, swelling or pain, apply topical antibiotic ointment. Alternate Tylenol and Motrin as needed and directed for pain. Return to the emergency department in the next 7 days for suture removal. Discharge Data Discharge Date/Time-TO BE ENTERED AT DEPARTURE: 10/28/19 16:00 Discharge Physician: Kait Mandel Medical Decision Making 49-year-old female presents with left middle finger laceration sustained on a piece of glass after attempting to take a candle outside of it. She states bleeding has not stopped and she is concerned about a possible piece of glass within wound. Last tetanus 2011. There is a V-shaped laceration on the volar aspect of left middle finger overlying PIP joint. No evidence of tendon injury. Neurovascular intact. X-ray negative for fracture or foreign body. Digital block performed and 5 sutures placed. Wound covered with antibiotic ointment and tube gauze dressing. Patient advised to return to the ER in 7 days for suture removal. She was instructed on proper wound care. She was advised to return here at any time with any concerning signs of infection. Medical Records Medical records reviewed: Yes I reviewed the patient's medical records. Imaging Data Radiologic Study: Radiologist's impression: XR Left Finger(s) Exam date and time: 10/28/2019 2:47 PM Age: 49 years old Clinical history: Pain; Finger(s); Left; Patient HX: S/P cut with glass R/O fb vs FX TECHNIQUE: Imaging protocol: XR Left fingers. Views: Minimum 2 views. COMPARISON: No relevant prior studies available. FINDINGS: Bones/joints: There is no evidence of acute fracture.There is no evidence of malalignment or dislocation. Soft tissues: No foreign body identified. IMPRESSION: 1. There is no evidence of acute fracture.There is no evidence of malalignment or dislocation. 2. No foreign body identified. HPI General Date/Time Provider Initiated Documentation: 10/28/19 14:09 . History of Present Illness 49 year old F presents to the emergency department with the chief complaint of L middle finger laceration, Quality is described as aching, and is localized to the upper extremity. Patient reports no radiation. Patient started experiencing this hour(s) (1) and it has been constant. No relieving factors improve symptom(s), No exacerbating factors reported . Patient notes no other symptoms.. Patient did receive the following treatments prior to arrival, none Related Data Home Medications Medication Instructions Recorded Confirmed multivitamin [Multi-Day] 1 ea PO DAILY 06/22/13 10/28/19 tamoxifen 20 mg PO HS tab-cap 06/22/13 10/28/19 loratadine [Claritin RediTabs] 1 tab PO DAILY PRN 12/12/15 10/28/19 ibuprofen 800 mg PO BID 02/02/17 10/28/19 acetaminophen 650 mg PO BID 10/09/18 10/28/19 albuterol sulfate 90 mcg/actuation 2 puff IH QID PRN #18 gm 10/25/18 10/28/19 aerosol inhaler budesonide-formoterol HFA 160 2 puff IH BID PRN gm 01/16/19 10/28/19 mcg-4.5 mcg/actuation aerosol inhaler levothyroxine 50 mcg tablet 50 mcg PO DAILY #90 tab-cap 07/26/19 10/28/19 omeprazole magnesium 20 mg 20 mg PO DAILY #90 tab-cap 07/26/19 10/28/19 tablet,delayed release Previous Rx's Medication Instructions Recorded albuterol sulfate 90 mcg/actuation 2 puff IH QID PRN #18 gm 10/25/18 aerosol inhaler levothyroxine 50 mcg tablet 50 mcg PO DAILY #90 tab-cap 07/26/19 omeprazole magnesium 20 mg 20 mg PO DAILY #90 tab-cap 07/26/19 tablet,delayed release Allergies Allergy/AdvReac Type Severity Reaction Status Date / Time fluconazole Allergy Intermediate TONGUE AND Verified 10/28/19 14:00 LIPS SWELLING latex Allergy RASH Verified 10/28/19 14:00 adhesive AdvReac Intermediate RASH Verified 10/28/19 14:00 venlafaxine HCl AdvReac NAUSEA Verified 10/28/19 14:00 [From Effexor] General Stated Complaint: Laceration LELE: 4 Review of Systems All systems reviewed & are unremarkable except as noted in HPI and below Integumentary/Breasts Skin/Breast: Denies rash PFSH Medical History Abnormal Pap smear of cervix (Resolved) Abnormal thyroid blood test (Inactive 07/08/17) Adjustment disorder with mixed emotional features (Chronic) Arthritis of hand (Chronic) Asthma (Chronic) BRCA negative (Acute) Chronic back pain (Resolved) Constipation (Chronic) Diverticulitis (Chronic) Dizziness (Resolved 07/05/17) Gastrointestinal problem (Resolved) GERD (gastroesophageal reflux disease) (Chronic) High cholesterol (Chronic) History of ectopic (Resolved) Hypothyroidism (Chronic) IC (interstitial cystitis) (Chronic) Liver lesion (Chronic) Malignant neoplasm of right breast, stage 3 (Chronic) Pain of right fibula (Chronic 08/02/17) Palliative care patient (Chronic) 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 Wiley Gracia; HSIL; VIN2 History of lymph node excision (Acute) RIGHT LYMPH NODE REMOVAL 2011 , Ectopic Right Radiofrequency-medial lumbar/sacral 08/05/17 Family History Mother Heart disease Hyperlipidemia Myocardial infarction Father CAD (coronary artery disease) Heart disease Hyperlipidemia Emphysema lung Hx of CABG FAMILY HISTORY Hyperlipidemia Neoplasm OVARIAN/CERVICAL Sister No problems noted. Brother No problems noted. Son No problems noted. Son No problems noted. Son No problems noted. Daughter Essential hypertension Social History Smoking/Tobacco Use Status: Current-Occasional Tobacco Type: cigarettes Alcohol Intake: current Alcohol Intake frequency: a few times a week Alcohol type: beer Drug use: Never Substance use type: does not use Household members: family Number of Children: 4 current occupation: client customer manager Pets and animals: Yes Pets and animals: dog(s) What is your relationship status?: Panel score (0-1 are the most socially isolated patients): 1 Lizy/Hinduism: Anglican Special lizy needs: No Seatbelt use: always Do you feel safe at home: Yes Do you feel safe in your relationship?: Yes History History 7 Para 4 Hx # Term Pregnancies Multiple births Hx # Pregnancies Ectopic pregnancies AB induced Hx Number of Living Children AB spontaneous Exam Const General: cooperative, healthy appearing and no acute distress HENMT Head: normal to inspection Mouth: oral mucosae normal Eyes General: appearance normal, both eyes and all related structures Neck Neck: normal visual inspection Resp Effort & Inspection: normal respiratory effort and able to speak in complete sentences Cardio Rate: regular rate Skin General skin exam: no rashes or lesions noted Neuro General: alert, awake and oriented x3 Motor: muscle tone normal throughout Other: Motor/sensory grossly intact. Extrem General: normal to inspection, full ROM and normal capillary refill Other: 2cm shaped laceration on volar aspect overlying PIP joint of L 3rd finger. Mild active oozing. Psych Appearance: grossly normal Affect: normal affect Course Vital Signs Vital signs: Vital Signs Temperature 98.4 F 10/28/19 13:57 Pulse 104 H 10/28/19 13:57 Respiratory Rate 18 10/28/19 13:57 Blood Pressure 150/92 H 10/28/19 13:57 Pulse Oximetry 98 10/28/19 13:57 Temperature 98.4 F 10/28/19 13:57 Temperature Source Skin 10/28/19 13:57 Pulse 104 H 10/28/19 13:57 Respiratory Rate 18 10/28/19 13:57 Respiratory Effort Non-Labored 10/28/19 14:02 Blood Pressure 150/92 H 10/28/19 13:57 Blood Pressure Position Sitting 10/28/19 13:57 Pulse Oximetry 98 10/28/19 13:57 Oxygen Delivery Method Room Air 10/28/19 13:57 Oxygen Flow Rate 0 10/28/19 13:57 Pain Level 3 10/28/19 13:57 Procedures Laceration Laceration 1: Site: hand Side (If applicable): left (3rd finger) Description: linear Depth: simple, single layer Local Anesthetic: Lidocaine 1% Amount of anesthesia used (mL): 4 Pre-repair: wound explored, irrigated extensively and deep structures intact Skin layer closed with: nylon Size (cm): 5-0 Number of sutures: 5 Technique: simple, interrupted
--- NOTE | 2019-10-28 14:48 | DI.RAD_ITS ---
EXAM: XR FINGER LT MIDDLE INDICATION: s/p cut with piece of glass/r/o foreign body vs fx. COMPARISON: No exams were available for comparison TECHNIQUE: 2D digital imaging was performed. FINDINGS: No fracture or dislocation is seen. IMPRESSION: Negative left index finger.
[2019-10-28] MEDS: Ibuprofen 600 MG TAB PO (14:56)
--- NOTE | 2019-10-28 15:15 | DI.VRAD_ITS ---
PROCEDURE INFORMATION: Exam: XR Left Finger(s) Exam date and time: 10/28/2019 2:47 PM Age: 49 years old Clinical history: Pain; Finger(s); Left; Patient HX: S/P cut with glass R/O fb vs FX TECHNIQUE: Imaging protocol: XR Left fingers. Views: Minimum 2 views. COMPARISON: No relevant prior studies available. FINDINGS: Bones/joints: There is no evidence of acute fracture.There is no evidence of malalignment or dislocation. Soft tissues: No foreign body identified. IMPRESSION: 1. There is no evidence of acute fracture.There is no evidence of malalignment or dislocation. 2. No foreign body identified. Dictated and Authenticated by: Jannet Huang MD. Ordering:LALO Carballo MD
[2019-10-28 15:59] VITALS: BP 112/68; PULSE 78; RESP 18; TEMP 36.8; O2SAT 99
== END 2019-10-28 16:00 | disposition home or self-care (01) ==
PROVIDERS: Emergency Provider Physician Assistant; PCP Family Medicine
DX: S61.213A Laceration without foreign body of left middle finger without damage to nail, initial encounter (principal); W25.XXXA Contact with sharp glass, initial encounter
CPT/HCPCS: 12001; 99283; 73140; 99281

== ENCOUNTER 2019-11-14 11:22 | Outpatient (CLI) | payer OTHER, SELFPAY ==
[2019-11-14 13:30] LABS: HGB 12.4 g/dL (12.0-15.5); Mean Corp. HGB Concentration 34.4 g/dL (32.0-36.0); Mean Corpuscular Hemoglobin 31.8 pg (27.0-33.0); Mean Corpuscular Volume 92.3 fL (80-95); Mean Platelet Volume 9.1 fL (8.0-11.0); Platelet Count 347 x1000/uL (130-400); RBC Distribution Width 12.6 % (11.7-14.6)
[2019-11-14 14:50] LABS: Absolute Eosinophil Count 0.33 k/cumm (0.0-0.7); Absolute Lymphocyte Count 5.45 k/cumm (1.2-3.4); Absolute Monocyte Count 0.44 k/cumm (0.11-0.7); Absolute Neutrophil Count 4.69 k/cumm (1.2-6.7); Atypical Lymphocytes % 2
[2019-11-14 14:52] LABS: Diff Comment Manual Differential; RBC Morphology Normal
[2019-11-14 15:19] LABS: ALT 21 U/L (14-59); AST 20 U/L (15-37); Albumin 3.7 g/dL (3.4-5.0); Alkaline Phosphatase 104 U/L (46-116); Anion Gap 11.5 mmol/L (3-11); BUN 15 mg/dL (7-18); Bilirubin, Total 0.2 mg/dL (0.2-1.0); CO2 23.5 mmol/L (21.0-32.0); CREATININE 0.66 mg/dL (0.55-1.02); Calcium 8.9 mg/dL (8.5-10.1); Chloride 106 mmol/L (98-107); Glucose 131 mg/dL (74-106); Potassium 3.7 mmol/L (3.5-5.1); Sodium 141 mmol/L (136-145)
[2019-11-16 10:29] LABS: FSH 23.6 mIU/mL (See Note)
[2019-11-17 08:44] LABS: Estradiol <12 pg/mL (See Note)
== END 2019-11-14 11:42 ==
PROVIDERS: Nurse Practitioner Family; PCP Family Medicine; Visit Provider Internal Medicine
DX: C50.411 Malignant neoplasm of upper-outer quadrant of right female breast (principal); Z17.0 Estrogen receptor positive status [ER+]
CPT/HCPCS: 36415; 80053; 82670; 83001; 85025

== ENCOUNTER 2019-12-28 02:38 | Outpatient (CLI) | payer OTHER, SELFPAY ==
[2019-12-28 11:43] LABS: HCT 37.6 % (36.0-46.0); HGB 12.8 g/dL (12.0-15.5); Mean Corpuscular Hemoglobin 31.9 pg (27.0-33.0); Mean Corpuscular Volume 93.8 fL (80-95); Mean Platelet Volume 9.2 fL (8.0-11.0); Platelet Count 361 x1000/uL (130-400); RBC 4.01 m/cumm (4.00-5.20); RBC Distribution Width 12.9 % (11.7-14.6); White Blood Cell Count 10.39 k/cumm (4.4-10.8)
[2019-12-28 12:00] LABS: Hemoglobin A1C 5.2 % (3.8-5.6)
[2019-12-28 12:23] LABS: ESR 6 mm/hr (0-30)
[2019-12-28 13:02] LABS: ALT 24 U/L (14-59); AST 17 U/L (15-37); Alkaline Phosphatase 108 U/L (46-116); BUN 13 mg/dL (7-18); Bilirubin, Total 0.2 mg/dL (0.2-1.0); CREATININE 0.68 mg/dL (0.55-1.02); Calcium 9.2 mg/dL (8.5-10.1); Calculated LDL 128 mg/dL (<100); Chloride 104 mmol/L (98-107); Cholesterol 233 mg/dL (<200); Glucose 109 mg/dL (74-106); HDL Cholesterol 49 mg/dL (40-60); Potassium 3.7 mmol/L (3.5-5.1); Sodium 142 mmol/L (136-145); Total Protein 7.2 g/dL (6.4-8.2); Triglyceride 282 mg/dL (<150); Vitamin B12 551 pg/mL (193-986)
[2019-12-28 16:51] LABS: Estradiol <12 pg/mL (See Note)
[2019-12-29 08:54] LABS: FSH 31.1 mIU/mL (See Note)
== END 2019-12-28 02:58 ==
PROVIDERS: Internal Medicine; PCP Family Medicine; Visit Provider Family Medicine
DX: C50.911 Malignant neoplasm of unspecified site of right female breast (principal); Z17.0 Estrogen receptor positive status [ER+]; E11.9 Type 2 diabetes mellitus without complications; E78.00 Pure hypercholesterolemia, unspecified; R53.83 Other fatigue; R53.81 Other malaise; G62.9 Polyneuropathy, unspecified
CPT/HCPCS: 36415; 80053; 80061; 85027; 85652; 82607; 82670; 83001; 83036

== ENCOUNTER 2020-01-02 01:04 | Outpatient (CLI) | payer OTHER, SELFPAY ==
--- NOTE | 2020-01-02 12:35 | DI.RAD_ITS ---
EXAM: XR CHEST 2V PA LATERAL CLINICAL HISTORY: M53.83 fatigue in smoker R53.81 MALAISE TECHNIQUE: 2D digital imaging was performed. COMPARISON: No exams were available for comparison FINDINGS: The cardiac and mediastinal contours have a normal appearance. The lungs are well inflated and clear . No infiltrate, effusion or pneumothorax is seen. No mass or adenopathy is visible. No spine or r ib fracture is identified. Surgical clips are noted in the right upper quadrant. IMPRESSION: Negative chest x-ray.
== END 2020-01-02 01:24 ==
PROVIDERS: PCP Family Medicine; Visit Provider Family Medicine
DX: R53.81 Other malaise (principal); R53.83 Other fatigue; F17.200 Nicotine dependence, unspecified, uncomplicated
CPT/HCPCS: 71046

== ENCOUNTER 2020-01-11 00:26 | Outpatient (CLI) | payer OTHER, SELFPAY | END 2020-01-11 00:46 | PROVIDERS: PCP Family Medicine; Visit Provider Family Medicine | DX: R69 Illness, unspecified (principal) | CPT/HCPCS: 93017 ==

== ENCOUNTER 2020-01-11 00:54 | Outpatient (CLI) | payer OTHER, SELFPAY ==
--- NOTE | 2020-01-11 06:15 | DI.NM_ITS ---
APPROVED REPORT Exam: Exercise Treadmill Patient Location: Out-Patient Room/Bed: Stress Nurse: Sharon Sky RN BMI: 25.40 Baseline Rhythm: Sinus Rhythm Indications: Fatigue. Chest pain. Medical History Medical History: Hyperlipidemia Cardiac Medications: Magnesium., Allergies: Fluconazole. Latex. Adhesive. Venlafaxine. Cardiac Risk Factors: FHX of CAD, Hyperlipidemia, Asthma, Smoking Pretest Chest Pain Characteristics: Exertional Chest pain Exercise History: Physically active Lung Sounds: Clear to auscultation Heart Sounds: Regular Stress Test Details Test: Exercise stress testing was performed using a Reyes protocol. Rest Isotope: Tc-99m Sestamibi. Dose: 10.5 Date: 01/11/2020 Injection Time: 0925 Stress Isotope: Tc-99m Sestamibi. Dose: 35.5 Date: 01/11/2020 Injection Time: 1122 HR Resting HR Supine: 75 bpm Max Heart Rate (APMHR): 169 bpm Resting HR Standin bpm Target HR (85% APMHR): 143 bpm Max HR Achieved: 160 bpm % of APMHR: 94 HR response to stress: Normal HR response to stress BP Resting BP Supine: 122/84 mmHg Resting BP Standin/88 mmHg Max BP: 162/80 mmHg Recovery BP: 122/86 mmHg BP response to stress: Normal blood pressure response to stress. ECG Resting ECG: Sinus Rhythm Stress ECG: Sinus Tachycardia ST Change: No significant ST segment changes Arrhythmia: None Recovery ECG: Sinus Rhythm Recovery ST Change: No significant ST segment changes Recovery Arrhythmia: None Clinical Reason for Termination: Fatigue Stress Symptoms: General Fatigue Exercise duration: 6 min16 sec Highest Stage Reached: Stage 2: 2.5 mph at 12% grade. Exercise capacity: 7.43 METs Functional Capacity: Above average capacity Scale: Active Stress ECG Conclusion 1. Good exercise tolerance of 7.43 METS limited by fatigue 2. Normal heart rate and blood pressure response to exercise 3. Electrocardiographically negative for myocardial ischemia at 94% of predicted heart rate for age 4. No dysrhythmias noted Protocol Used: Reyes Protocol Stress Test Summary STAGE Time (mins) Speed (mph) Grade (%) HR BP SYMPTOMS METS Supine 75 122/84 Standing 92 122/88 1 3 1.7 10 129 144/90 4.6 2 6 2.5 12 154 7 1 min recovery 160 182/90 3 min recovery 99 162/80 6 min recovery 94 122/86 MPI Conclusion Normal myocardial perfusion, no evidence of ischemia or infarction Radiologist Interpretation Radiologist agrees with Rock Singer's Interpretation. Radiologist Interpretation by: Gisell Granado MD Interpretation Date/Time: 01/12/2020 09:54:19
== END 2020-01-11 01:14 ==
PROVIDERS: PCP Family Medicine; Visit Provider Family Medicine
DX: R53.83 Other fatigue (principal); R07.89 Other chest pain; E78.5 Hyperlipidemia, unspecified; F17.210 Nicotine dependence, cigarettes, uncomplicated
CPT/HCPCS: 78452; 93017

== ENCOUNTER 2020-01-13 02:08 | Outpatient (CLI) | payer OTHER, SELFPAY ==
--- NOTE | 2020-01-13 10:25 | DI.US_ITS ---
APPROVED REPORT EXAM: Comprehensive 2D, Doppler, and color-flow Echocardiogram Patient Location: Out-Patient Bi Data Modeler: Mary Buck RDCS (AE) Indications: Fatigue, s/p chem Conclusion Left Ventricle : The left ventricle is normal size. Left ventricular systolic function is normal. Th ere is normal LV segmental wall motion. There is normal left ventricular wall thickness. The posterio r wall thickness is normal. The septum is normal. Diastolic function was indeterminate. LVEF is 50-54 %. Right Ventricle : The right ventricle is normal size. The right ventricular systolic function is norm al. Atria : The left atrium size is normal. The right atrium size is normal. Aortic Valve : Aortic valve is trileaflet. No aortic regurgitation is present. There is no aortic mona vular stenosis. Mitral Valve : The mitral valve is normal in structure. Trace mitral regurgitation. No evidence of mi tral valve stenosis. Tricuspid Valve : The tricuspid valve is normal in structure. Mild tricuspid regurgitation. Great Vessels : IVC is normal in size and collapses >50% with inspiration. There are no prior echocardiograms available for comparison. Wall motion Left Ventricle The left ventricle is normal size. Left ventricular systolic function is normal. There is normal left ventricular wall thickness. The posterior wall thickness is normal. The septum is normal. There is n ormal LV segmental wall motion. Diastolic function was indeterminate. LVEF is 50-54%. Right Ventricle The right ventricle is normal size. The right ventricular systolic function is normal. Atria The left atrium size is normal. The right atrium size is normal. Aortic Valve Aortic valve is trileaflet. There is no aortic valvular stenosis. No aortic regurgitation is present. Mitral Valve The mitral valve is normal in structure. No evidence of mitral valve stenosis. Trace mitral regurgita tion. Tricuspid Valve The tricuspid valve is normal in structure. There is no tricuspid valve stenosis. Mild tricuspid regu rgitation. Pulmonic Valve Pulmonic valve is not well visualized. There is no pulmonic valvular stenosis. Trace pulmonic regurgi tation. Great Vessels The aortic root is normal in size. The ascending aorta size is normal. IVC is normal in size and aleah apses >50% with inspiration. Pericardium There is no pericardial effusion. 2D Dimensions IVSD d PLAX 0.88 cm F: 0.6-1.0 LV Vol A2C d MOD 97.0 mL LVPW d PLAX 0.81 cm F: 0.6 - 1.0 LV Vol A4C d MOD 83.3 mL LVID d PLAX 4.66 cm F: 3.8 - 5.2 LA vol/ BSA A2C s A-L 17.9 mL/m2 LVDs 3.30 cm F: 2.2 - 3.5 LA vol/ BSA A4C s A-L 22.0 mL/m2 Ao Root d 2.69 cm F: 2.7 - 3.3 LA Vol/ BSA Biplane s A-L 21.1 mL/m2 RA Area A4C 8.54 cm2 LA Area A4C s MOD 13.81 cm2 RA Vol/ BSA A4C s A-L 10.7 mL/m2 LA Area A2C s MOD 13.28 cm2 Ao Asc Diam d 2.55 cm F: 2.3 - 3.1 LV EF A4C MOD 52.9 % LV EF Teichholz 55.7 % LV EF A2C MOD 52.7 % LVEF (Huang's) 50.33 % F: 54 - 74 LV EF Biplane MOD 50.3 % LV Volume 73.47 mL F: 46 - 106 LV Volume Index 42.96 mL/m2 F: 29 - 61 LV Vol Biplane MOD 92.8 mL FS 28.95 % LV Diastology E/A Ratio 0.7 MV E Vmax 0.59 (0.4-1.3 m/s) MV A Vmax 0.90 (0.4-1.3 m/s) MV E/A Ratio 0.64 Aortic Valve LVOT Area 2.71 cm2 AoV Area Vmax 2.26 cm2 LVOT Vmax 1.07 m/s AoV Area/ BSA (Vmax) 1.32 cm2/m2 LVOT Mean Delgado. 0.65 m/s LUL Mean Delgado. 1.92 cm2 LVOT Peak Grad 4.6 mmHg LUL Mean Delgado. Index 1.12 cm2/m2 LVOT Mean Grad 2.0 mmHg LVOT VTI 0.187 m LVOT Diam s 1.85 cm (M/F) 1.5-2.5 AoV Vmax 1.28 (0.5-1.3 m/s) Velocity Ratio 0.83 AoV Mean Delgado. 0.92 m/s AoV Peak Grad 6.6 mmHg LVOT SV 50.60 mL AoV Mean Grad 3.6 (<5 mmHg) AoV VTI 0.213 (0.18-0.25 m) AoV Area VTI 2.38 (2.5-4.5 cm2) AoV Area/ BSA (VTI) 1.39 cm/m2 Mitral Valve MV DT 182 (160-240 msec) MV PHT 53 msec MV Area PHT 4.16 cm2 Pulmonary Valve PV Vmax 0.84 (0.5-1.5 m/s) PV Peak Grad 2.8 mmHg PV Mean Grad 1.3 mmHg PV VTI 0.194 m Tricuspid Valve TR Peak Grad 14.9 mmHg TR Vmax 1.94 m/s RA Pressure 3.00 mmHg RVSP (TR) 18.0 mmHg
== END 2020-01-13 02:28 ==
PROVIDERS: PCP Family Medicine; Visit Provider Family Medicine
DX: R53.83 Other fatigue (principal); Z92.21 Personal history of antineoplastic chemotherapy; I08.1 Rheumatic disorders of both mitral and tricuspid valves
CPT/HCPCS: 93306

== ENCOUNTER 2020-01-19 09:12 | Outpatient (CLI) | payer OTHER, SELFPAY ==
[2020-01-22 06:42] LABS: Vitamin D 25 Total 42.1 ng/ml (30-100)
== END 2020-01-19 09:32 ==
PROVIDERS: PCP Family Medicine; Visit Provider Family Medicine
DX: Z00.00 Encounter for general adult medical examination without abnormal findings (principal); R13.10 Dysphagia, unspecified
CPT/HCPCS: 36415; 82306

== ENCOUNTER 2020-01-23 02:12 | Outpatient (CLI) | payer OTHER, SELFPAY ==
--- NOTE | 2020-01-23 15:45 | DI.DEXA_ITS ---
EXAM: XR DEXA BONE DENSITY W/WO HOWIE CLINICAL HISTORY: osteopenia M85.80, BREAST CANCER ON THERAPY C50.911, Z17.0 COMPARISON: No exams were available for comparison FINDINGS: Lateral view of the spine shows no compression deformities. Evaluation of the left hip shows a total T-score of -1.4 and a Z-score of -0.9. This is consistent w ith osteopenia and increased fracture risk. Evaluation of the lumbar spine shows a total T-score of -1.4 and a Z-score of -0.5. This is also con sistent with osteopenia and increased fracture risk. IMPRESSION: Findings of osteopenia in the lumbar spine and left hip.
== END 2020-01-23 02:32 ==
PROVIDERS: PCP Family Medicine; Visit Provider Nurse Practitioner Adult Health
DX: M85.80 Other specified disorders of bone density and structure, unspecified site (principal); C50.911 Malignant neoplasm of unspecified site of right female breast; Z17.0 Estrogen receptor positive status [ER+]
CPT/HCPCS: 77080

== ENCOUNTER 2020-01-24 01:26 | Outpatient (CLI) | payer OTHER, SELFPAY ==
--- NOTE | 2020-01-24 09:57 | DI.RAD_ITS ---
EXAM: RF BARIUM SWALLOW CLINICAL HISTORY: dysphagia, R13.10,H/O REFLUX TECHNIQUE: 2D and realtime digital imaging was performed. CONTRAST MATERIAL: Oral barium contrast was administered. COMPARISON: No exams were available for comparison FINDINGS: Initial plain film of the chest shows clear lungs. The heart size and pulmonary vasculature are with in normal limits. Esophagus: The esophagus is patent with no evidence for erosions, fold thickening, strictures, or ma sses. With regards to the motility, there is a normal primary stripping wave. No tertiary contraction s were noted. There is no gastroesophageal reflux. There is a small hiatal hernia. IMPRESSION: Small hiatal hernia otherwise unremarkable esophagram. FLUORO TIME: 1.41 seconds
[2020-01-24] MEDS: Barium Sulfate 60% W/V 355 ML BTL PO (10:07)
[2020-01-24] MEDS: Barium Sulfate 700 MG TAB PO (10:45)
== END 2020-01-24 01:46 ==
PROVIDERS: PCP Family Medicine; Visit Provider Family Medicine
DX: R13.10 Dysphagia, unspecified (principal); K21.9 Gastro-esophageal reflux disease without esophagitis; K44.9 Diaphragmatic hernia without obstruction or gangrene
CPT/HCPCS: 74221; J3490

== ENCOUNTER 2020-04-09 03:01 | Outpatient (CLI) | payer OTHER, SELFPAY ==
[2020-04-09 12:01] LABS: Abs Immature Grans 0.02 k/cumm (0.0-0.09); Absolute Basophil Count 0.03 k/cumm (0.0-0.2); Absolute Eosinophil Count 0.14 k/cumm (0.0-0.7); Absolute Lymphocyte Count 4.28 k/cumm (1.2-3.4); Absolute Monocyte Count 0.63 k/cumm (0.11-0.7); Absolute Neutrophil Count 5.67 k/cumm (1.2-6.7); Basophils % 0.3; Eosinophils % 1.3; HCT 36.1 % (36.0-46.0); HGB 12.2 g/dL (12.0-15.5); Immature Grans % 0.2 %; Lymphocytes % 39.7; Mean Corp. HGB Concentration 33.8 g/dL (32.0-36.0); Mean Corpuscular Hemoglobin 31.1 pg (27.0-33.0); Mean Corpuscular Volume 92.1 fL (80-95); Mean Platelet Volume 9.3 fL (8.0-11.0); Monocytes % 5.8; Neutrophils % 52.7; Platelet Count 390 x1000/uL (130-400); RBC 3.92 m/cumm (4.00-5.20); RBC Distribution Width 12.6 % (11.7-14.6); White Blood Cell Count 10.77 k/cumm (4.4-10.8)
[2020-04-09 12:47] LABS: ALT 20 U/L (14-59); AST 18 U/L (15-37); Albumin 3.8 g/dL (3.4-5.0); Alkaline Phosphatase 85 U/L (46-116); Anion Gap 9.7 mmol/L (3-11); BUN 8 mg/dL (7-18); Bilirubin, Total 0.4 mg/dL (0.2-1.0); CO2 25.3 mmol/L (21.0-32.0); CREATININE 0.77 mg/dL (0.55-1.02); Calcium 9.1 mg/dL (8.5-10.1); Chloride 103 mmol/L (98-107); Glucose 121 mg/dL (74-106); Potassium 3.7 mmol/L (3.5-5.1); Sodium 138 mmol/L (136-145); Total Protein 6.8 g/dL (6.4-8.2)
[2020-04-09 16:52] LABS: Estradiol <12 pg/mL (See Note)
[2020-04-10 10:52] LABS: FSH 26.8 mIU/mL (See Note)
== END 2020-04-09 03:21 ==
PROVIDERS: PCP Family Medicine; Visit Provider Internal Medicine
DX: C50.911 Malignant neoplasm of unspecified site of right female breast (principal); Z17.0 Estrogen receptor positive status [ER+]; Z78.0 Asymptomatic menopausal state
CPT/HCPCS: 36415; 80053; 82670; 83001; 85025

== ENCOUNTER 2020-04-23 07:58 | Outpatient (CLI) | payer OTHER, SELFPAY ==
[2020-04-24 03:52] LABS: COVID-19 RT-PCR UVMMC Result Negative (Negative)
== END 2020-04-23 08:18 ==
PROVIDERS: PCP Family Medicine; Visit Provider Family Medicine
DX: Z11.59 Encounter for screening for other viral diseases (principal)
CPT/HCPCS: U0003

== ENCOUNTER 2020-05-06 01:25 | Outpatient (CLI) | payer OTHER, SELFPAY ==
--- NOTE | 2020-05-06 10:00 | DI.MRI_ITS ---
EXAM: MR LUMBAR SPINE WO CLINICAL HISTORY: left foot burning pain,PARESTHESIA,R20.2. TECHNIQUE: Multiplanar multisequence MRI of the Lumbar spine was performed. COMPARISON: MR MRI - LUMBAR SPINE WO CONTRAST from 02/06/2015 CR XR DEXA BONE DENSITY W/WO HOWIE from 01/23/2020 FINDINGS: Bones: The last intervertebral disc space is designated the L5/S1 level for the numbering purpose of this examination. The vertebral body heights are well maintained. Alignment is satisfactory. The ma rrow signal characteristics are unremarkable. Cord: The conus tip ends at the T12 level. It is of normal size and signal intensity. T12-L1: No disc herniations or bulges are present. No central spinal canal or neural foraminal stenos is. L1-2: No disc herniations or bulges are present. No central spinal canal or neural foraminal stenosis . L2-3: No disc herniations or bulges are present. No central spinal canal or neural foraminal stenosis . L3-4: No disc herniations or bulges are present. No central spinal canal or neural foraminal stenosis . L4-5: Tiny right lateral disc protrusion causing mild right neural foraminal narrowing.. L5-S1: Disc desiccation and mild loss of disc height. Broad-based mild disc bulging. Facet degenera tive changes and ligamentous hypertrophy.. Severe bilateral neural foraminal narrowing and mild cent ral canal stenosis. The findings appear worse when compared with the previous exam. Soft tissues: The visualized SI joints and sacrum are well maintained. The paraspinal soft tissues ar e unremarkable. The aorta is normal in diameter. IMPRESSION: Degenerative disc changes and facet degenerative changes at L5 S1 combine to produce severe bilateral neural foraminal narrowing as well as mild central canal stenosis. DATA REPOSITORY:
== END 2020-05-06 01:45 ==
PROVIDERS: PCP Family Medicine; Visit Provider Psychiatry & Neurology Neurology
DX: M79.672 Pain in left foot (principal); R20.2 Paresthesia of skin; M51.37 Other intervertebral disc degeneration, lumbosacral region; M47.817 Spondylosis without myelopathy or radiculopathy, lumbosacral region
CPT/HCPCS: 72148

== ENCOUNTER 2020-09-10 07:20 | Outpatient (CLI) | payer OTHER, SELFPAY ==
[2020-09-12 17:03] LABS: Patient Race White; SARS-CoV-2 RNA Undetected (Undetected); SARS-CoV-2 Specimen Source Nasal
== END 2020-09-10 07:40 ==
PROVIDERS: PCP Family Medicine; Visit Provider Family Medicine
DX: R51.9 Headache, unspecified (principal); J02.9 Acute pharyngitis, unspecified
CPT/HCPCS: U0003

== ENCOUNTER 2020-11-05 02:00 | Outpatient (CLI) | payer OTHER, SELFPAY ==
[2020-11-05 14:04] LABS: Abs Immature Grans 0.04 10^3/uL (0.0-0.06); Absolute Eosinophil Count 0.13 10^3/uL (0.0-0.7); Basophils % 0.3; Eosinophils % 1.1; HCT 37.5 % (36.0-46.0); HGB 12.5 g/dL (11.2-15.7); Immature Grans % 0.3; Lymphocytes % 44.8; MCH 31.5 pg (27.0-33.0); MCHC 33.3 % (32.0-36.0); MCV 94.5 fL (80-95); MPV 9.6 fL (8.0-11.0); Monocytes % 6.9; Neutrophils % 46.6; Nucleated RBC 0 %; Platelet Count 325 10^3/uL (130-400); RBC 3.97 10^6/uL (3.93-5.22); RDW 12.3 % (11.7-14.6); RDW-SD 43.3 fL; WBC 11.64 10^3/uL (4.4-10.8)
[2020-11-05 14:06] LABS: Absolute Basophil Count 0.03 10^3/uL (0.0-0.2); Absolute Lymphocyte Count 5.21 10^3/uL (1.2-3.4); Absolute Neutrophil Count 5.42 10^3/uL (1.2-6.7)
[2020-11-05 14:14] LABS: ALT 19 U/L (14-59); AST 17 U/L (15-37); Albumin 3.8 g/dL (3.4-5.0); Alkaline Phosphatase 86 U/L (46-116); Anion Gap 5.8 mmol/L (3-11); BUN 16 mg/dL (7-18); Bilirubin, Total 0.3 mg/dL (0.2-1.0); CO2 28.2 mmol/L (21.0-32.0); CREATININE 0.76 mg/dL (0.55-1.02); Chloride 104 mmol/L (98-107); Glucose 103 mg/dL (74-106); Potassium 3.9 mmol/L (3.5-5.1); Sodium 138 mmol/L (136-145); Total Protein 7.3 g/dL (6.4-8.2)
[2020-11-05 14:18] LABS: Diff Comment Agrees w/ Instrument; RBC Morphology Normal
[2020-11-05 21:39] LABS: Estradiol <12 pg/mL (See Note)
[2020-11-05 21:55] LABS: FSH 21.8 mIU/mL (See Note)
== END 2020-11-05 02:20 ==
PROVIDERS: PCP Family Medicine; Visit Provider Internal Medicine
DX: Z78.0 Asymptomatic menopausal state (principal); C50.911 Malignant neoplasm of unspecified site of right female breast; Z17.0 Estrogen receptor positive status [ER+]
CPT/HCPCS: 36415; 80053; 82670; 83001; 85025

== ENCOUNTER 2021-01-13 02:58 | Outpatient (CLI) | payer OTHER, SELFPAY ==
[2021-01-13 08:14] LABS: HCT 35.3 % (36.0-46.0); HGB 11.9 g/dL (11.2-15.7); MCH 31.7 pg (27.0-33.0); MCHC 33.7 % (32.0-36.0); MCV 94.1 fL (80-95); MPV 9.2 fL (8.0-11.0); Platelet Count 401 10^3/uL (130-400); RBC 3.75 10^6/uL (3.93-5.22); RDW 12.4 % (11.7-14.6); RDW-SD 42.6 fL; WBC 9.62 10^3/uL (4.4-10.8)
[2021-01-13 09:15] LABS: ALT 19 U/L (14-59); AST 15 U/L (15-37); Albumin 3.4 g/dL (3.4-5.0); Alkaline Phosphatase 84 U/L (46-116); Anion Gap 9.5 mmol/L (3-11); BUN 19 mg/dL (7-18); Bilirubin, Total 0.3 mg/dL (0.2-1.0); CO2 27.5 mmol/L (21.0-32.0); CREATININE 0.7 mg/dL (0.55-1.02); Calcium 9.1 mg/dL (8.5-10.1); Calculated LDL 87 mg/dL (<100); Chloride 104 mmol/L (98-107); Cholesterol 161 mg/dL (<200); Glucose 101 mg/dL (74-106); HDL Cholesterol 48 mg/dL (40-60); Potassium 3.9 mmol/L (3.5-5.1); Sodium 141 mmol/L (136-145); TSH (W/Ref FT4) 1.88 uIU/mL (0.36-3.74); Total Protein 6.5 g/dL (6.4-8.2); Triglyceride 132 mg/dL (<150)
[2021-01-13 09:28] LABS: Vitamin D 25 Total 42.4 ng/ml (30-100)
== END 2021-01-13 02:59 | disposition home or self-care (01) ==
LOC: LBO 02:58
PROVIDERS: PCP Family Medicine; Visit Provider Family Medicine
DX: Z00.00 Encounter for general adult medical examination without abnormal findings (principal); Z13.220 Encounter for screening for lipoid disorders; Z13.29 Encounter for screening for other suspected endocrine disorder; E55.9 Vitamin D deficiency, unspecified; M81.0 Age-related osteoporosis without current pathological fracture
CPT/HCPCS: 36415; 80053; 80061; 82306; 85027; 84443

== ENCOUNTER 2021-01-31 02:42 | Outpatient (CLI) | payer OTHER, SELFPAY ==
[2021-01-31 09:15] LABS: Iron 90 ug/dL (50-170); Total Iron Binding Capacity 296 ug/dL (250-450); Transferrin Sat 30 % (15-50)
[2021-01-31 09:28] LABS: Ferritin 287 ng/mL (8-252)
[2021-01-31 16:21] LABS: ESR < 1 mm/hr (<or=30)
[2021-02-20 09:40] LABS: Aspergillus amstelodami/glaucu Negative (Negative); Aspergillus flavus Negative (Negative); Aspergillus fumigatus Mix Negative (Negative); Aspergillus nidulans Negative (Negative); Aspergillus niger Negative (Negative); Aspergillus versicolor Negative (Negative)
== END 2021-01-31 02:43 | disposition home or self-care (01) ==
LOC: LBO 02:42
PROVIDERS: PCP Family Medicine; Visit Provider Family Medicine
DX: R53.83 Other fatigue (principal); R09.81 Nasal congestion; J32.8 Other chronic sinusitis
CPT/HCPCS: 36415; 85652; 86331; 87305; 82728; 83540; 83550

== ENCOUNTER 2021-02-07 09:49 | Outpatient (CLI) | payer OTHER, SELFPAY ==
[2021-02-08 14:17] LABS: COVID-19 RT-PCR UVMMC Result Negative (Negative)
== END 2021-02-07 09:50 | disposition home or self-care (01) ==
PROVIDERS: PCP Family Medicine; Visit Provider Family Medicine
DX: Z20.828 Contact with and (suspected) exposure to other viral communicable diseases (principal)
CPT/HCPCS: U0003

== ENCOUNTER 2021-02-13 02:41 | Outpatient (CLI) | payer OTHER, SELFPAY ==
[2021-02-14 16:02] LABS: COVID-19 RT-PCR UVMMC Result Negative (Negative)
== END 2021-02-13 02:42 | disposition home or self-care (01) ==
LOC: LBO 02:41
PROVIDERS: PCP Family Medicine; Visit Provider Family Medicine
DX: Z20.828 Contact with and (suspected) exposure to other viral communicable diseases (principal)
CPT/HCPCS: U0003

== ENCOUNTER 2021-02-18 03:17 | Outpatient (CLI) | payer OTHER, SELFPAY ==
[2021-02-19 15:52] LABS: COVID-19 RT-PCR UVMMC Result Negative (Negative)
== END 2021-02-18 03:18 | disposition home or self-care (01) ==
LOC: LBO 03:17
PROVIDERS: PCP Family Medicine; Visit Provider Family Medicine
DX: Z20.828 Contact with and (suspected) exposure to other viral communicable diseases (principal)
CPT/HCPCS: U0003

== ENCOUNTER 2021-05-29 14:49 | Outpatient (CLI) | payer OTHER, SELFPAY ==
--- NOTE | 2021-05-29 10:34 | DI.RAD_ITS ---
Exam(s) XR CHEST 2V PA LATERAL EXAM: XR CHEST 2V PA LATERAL CLINICAL HISTORY: persistent cough and fever J40 BRONCHITIS R50.9 FEVER R53.83 FATIGUE TECHNIQUE: 2D digital imaging was performed. COMPARISON: CR,RF RF BARIUM SWALLOW from 01/24/2020 FINDINGS: MEDIASTINUM: Normal. HEART: Normal. PULMONARY VASCULATURE: Normal. LUNGS: Clear. PLEURAL SPACE: No pleural effusion or pneumothorax. BONE:Unremarkable for age. IMPRESSION: No acute abnormality. DATA REPOSITORY: RADIATION DOSE DELIVERED:
--- OUTSIDE RECORDS SUMMARY | 2021-05-29 14:54 | XMS_ITS ---
:1970 Author Care Team Providers Name Role Phone ELIF DIAZ Primary Care Provider [phone] [facility] REC[facility]DS OTHER [phone] Allergies Code Code System Name Reaction Severity Status Onset Cat Dander ? ? Active ? 4450 RxNorm Fluconazole ? ? Active ? 1767852 RxNorm Latex ? ? Active ? Seasonale () ? ? Active ? 61370 RxNorm Venlafaxine ? ? Active ? Medications Name Status Start Date Stop Date ? ? acetaminophen Active ? Not available 650 mg twice a day Adderall Completed ? 02/25/2021 5 mg daily albuterol sulfate Active ? Not available 90mcg inhaler 2 puffs 4 times a day amlodipine 5 mg tablet Active ? Not avail able Take 1 tablet every day by oral route. budesonide-formoterol HFA 160 mcg-4.5 mcg/actuation aerosol inha ler Active ? Not available Inhale 2 puffs twice a day by inhalation route as needed. ibuprofen 800 mg tablet Active ? Not avai lable Take 1 tablet twice a day by oral route. letrozole 2.5 mg tablet Active ? Not avai lable Take 1 tablet every day by oral route. levothyroxine Active ? Not available 50 mg daily loratadine 10 mg tablet Active ? Not avai lable Take 1 tablet every day by oral route. Multi Vitamin Active ? Not available 1 daily Prilosec 20 mg capsule,delayed release Active ? Not available Take 1 capsule every day by oral route. Ritalin 5 mg tablet Completed ? 10/10/2020 Take 1 tablet twice a day by oral route. ropinirole 1 mg tablet Active ? Not avail able take 2 hours before bedtime tamoxifen 20 mg tablet Active ? Not avail able Take 1 tablet every day by oral route. zolpidem 5 mg tablet Completed ? 10/10/2020 Take 1-2 PO night of sleep study if needed. Problems Name Status Onset Date Source ? Malignant Tumor of Breast Active 03/21/2020 ? Hyperthyroidism Active 03/21/2020 ? Smoker Active 03/21/2020 ? Restless Legs Active 03/21/2020 ? Asthma Unknown 03/21/2020 ? Fatigue Active 03/21/2020 ? Malaise Active 03/21/2020 ? Dysphasia Active 03/21/2020 ? Obstructive Sleep Apnea Syndrome Active ? ? Procedures None recorded. Results Lab Results None recorded. Past Encounters 05/01/2021 Obstructive Sleep Apnea Syndrome; Restle ss Legs Kirti Angel [employer]: [address] [place] [phone], Ph. 02/25/2021 Obstructive Sleep Apnea Syndrome; Restle ss Legs Kirti Angel [employer]: [address] [place] [phone], Ph. 12/19/2020 Obstructive Sleep Apnea Syndrome; Restle ss Legs Kirti Angel [employer]: [address] [place] [phone], Ph. 10/10/2020 Obstructive Sleep Apnea Syndrome Kirti Angel [employer]: [address] [place] [phone], Ph. 03/21/2020 Fatigue; Restless Legs Kirti Angel [employer]: [address] [place] [phone], Ph. Social History Tobacco Smoking Status Heavy Tobacco Smoker (1/2 PPD) Vaccine List None recorded. Plan of Care Reminders Provider Appointments None ? ? recorded. Lab None ? ? recorded. Referral None ? ? recorded. Procedures None ? ? recorded. Surgeries None ? ? recorded. Imaging None ? ? recorded. Vitals 05/01/2021 08:30AM Office 30 Height Weight BMI Blood Pressure 162.56 cm 67.13 kg 25.4 kg/m2 128/72 mm[Hg] 02/25/2021 08:30AM Office 30 Height Weight BMI Blood Pressure 162.56 cm 67.22 kg 25.4 kg/m2 155/92 mm[Hg] 12/19/2020 02:30PM Office 30 Height Weight BMI Blood Pressure 162.56 cm 66.59 kg 25.2 kg/m2 (1) 174/87 mm[H g] (2) 148/88 mm[Hg ] 10/10/2020 02:30PM Office 30 Height Weight BMI Blood Pressure 162.56 cm 64.59 kg 24.4 kg/m2 120/64 mm[Hg] 03/21/2020 12:30PM New Patient 43 Height Weight BMI 162.56 cm 66.68 kg 25.2 kg/m2
--- OUTSIDE RECORDS SUMMARY | 2021-05-29 14:54 | XMS_ITS | Encounter Summary ---
:1970 Author Care Team Providers Name Role Phone Kati Rubio Primary Care Provider [phone] [facility] Medical Records OTHER [phone] Reason for Visit None recorded. Assessment and Plan 1. Obstructive sleep apnea syndr ome BLADIMIR diagnosed on HST with an A HI of 6/hr which is likely an underestimation of the severity given it was a HST. She has been using CPAP 8.5- 12 cm. She has excellent compliance and reduction in AHI. She still occasionally feels like she is suffocating and not getting enough air at night. She has some dry mouth despite adjusting the humidity. I recommended OTC products. I set CPAP to 9.5-14 cm . Unfortunately she continues to feel fa tigued and like her sleep is not restorative. She inquired about taking a sleep aid but she has no trouble falling asleep or staying asleep and only wakes about 2 /night and gets right back to sleep so I am not convinced a sleep aid will help, additionally it may cause more grogginess the next day. For now I encouraged her to work on getting closer to 8 hours of sleep a night as she currently gets 6.5- 7 hours. Her goal will be to get in bed at 10 pm and up at 6 am. If she continues to have sleepiness may consider doxepin 10 mg QHS. She is not a good candidate f or modafinil because she had elevated HR and BP while taking Adderall so this had to be discontinued. I will see her back in three months. I provided greater than 30 minutes in e care of this patient, more than half the time was spent in counseling. ? CPAP supplies 2. Restless legs She was previously having RLS symptoms that occurred about four times a week.She has previously been instructed that caffeine and chocolate may worsen RLS symptoms and they may be improved by exercise. Last visit I prescribed ropini role 1 mg. This caused her to have morning grogginess so she is only taking 1/2 tablet. She has been taking it right at bedtime because she forgets to take it ear ly. I explained this may be why she has the grogginess especially since she only sleeps 6-7 hours. I suggested she set an alarm to start taking it at 8 pm and get into bed at 10 pm. She has to be up at 6 am so this will give her 8 hours of sl eep and hopefully improve her residual fatigue. Discussion Note: None recorded.Patient educational handouts: No information available. Plan of Care Reminders Provider Appointments Office 08/07/2021 Ej Angel, 8:30AM [employer] Lab None ? ? recorded. Referral None ? ? recorded. Procedures None ? ? recorded. Surgeries None ? ? recorded. Imaging None ? ? recorded. Medications Name Start Date ? ? acetaminophen ? 650 mg twice a day albuterol sulfate ? 90mcg inhaler 2 puffs 4 times a day amlodipine 5 mg tablet ? Take 1 tablet every day by oral route. budesonide-formoterol HFA 160 mcg-4.5 mcg/actuation ae rosol inhaler ? Inhale 2 puffs twice a day by inhalation route as nee ded. ibuprofen 800 mg tablet ? Take 1 tablet twice a day by oral route. letrozole 2.5 mg tablet ? Take 1 tablet every day by oral route. levothyroxine ? 50 mg daily loratadine 10 mg tablet ? Take 1 tablet every day by oral route. Multi Vitamin ? 1 daily Prilosec 20 mg capsule,delayed release ? Take 1 capsule every day by oral route. ropinirole 1 mg tablet ? take 2 hours before bedtime tamoxifen 20 mg tablet ? Take 1 tablet every day by oral route. Medications Administered None recorded. Vitals Height Weight BMI Blood Pressure 5 ft 4 in 148 lbs 25.4 kg/m2 128/72 mm[Hg] Results Lab Results None recorded. Allergies Code Code System Name Reaction Severity Onset Cat Dander ? ? ? 0720 RxNorm Fluconazole ? ? ? 0551648 RxNorm Latex ? ? ? Seasonale (91) ? ? ? 95531 RxNorm Venlafaxine ? ? ? Problems Name Status Onset Date Source ? Malignant Tumor of Breast Active 03/21/2020 ? Hyperthyroidism Active 03/21/2020 ? Smoker Active 03/21/2020 ? Restless Legs Active 03/21/2020 ? Fatigue Active 03/21/2020 ? Malaise Active 03/21/2020 ? Dysphasia Active 03/21/2020 ? Obstructive Sleep Apnea Syndrome Active ? ? Procedures None recorded. Vaccine List None recorded. Social History Tobacco Smoking Status Heavy Tobacco Smoker (1/2 PPD) Alcohol intake Occasional Notes: 4 glasses wine weekly Live alone or with others? with others Animal exposure? Y Notes: 2 dogs, 2 cats Are you currently employed? Y Blind or serious difficulty Y Notes: we ars glasses seeing Hard of hearing or deaf in one N or both ears? Caffeine intake Occasional Notes: 1 coffee a day Drug Use N Tobacco-years of use 20 Functional Status Blind or serious Yes difficulty seeing? Past Encounters 05/01/2021 Obstructive Sleep Apnea Syndrome; Restle ss Legs Kirti Angel [employer]: [address] [place] [phone], Ph. History of Present Illness Note: <p>Yasmine Matthew has a visit for BLADIMIR and PLMS follow-up.</p><p>
</p><p>Yasmine had a visit with ca on 02/25/21. She has a medical history to include breast cancer, hypothyroidism, arthralgias, polyneuropathy and dysphagia. Labs reviewed from 12/28/19 CBC, ESR, B12 and CMP unremarkable. She noted symptoms of daytime sleepiness (ESS 13), neurocognitive decline and frequent morning headaches and RLS a couple of times a week.</p><p>HST 09/24/20 (BMI 25.23), AHI 6.6/hr, supine AHI 5/hr, right lateral AHI 0/hr, left lateral AHI 6/hr, prone AHI 10/hr, sp02 madiha 88%, snoring was detected throughout the study. Last visit she was using CPAP 7-12 cm with a F&P Vitera with excellent compliance and reduction in AHI but residual sleepiness and waking feeling suffocated and needs more air. Also RLS several nights a week. I set CPAP to 8.5-12 cm and started her on ropinirole 1 mg. She was previously on Adderall through PCP but stopped due to elevated HR.</p><p>
</p><p>Yasmine says she is only taking 1/2 tablet of ropinirole because when she tried the 1 mg dose for about a month and she had morning grogginess. She is taking it close to bedtime not two hours before. She is not having any RLS in the evenings or at night but sometimes has them when she gets up in the morning. She averages about 6.5-7 hours of sleep a night. </p><p>She is using her CPAP every night and tolerates it well but she sometimes still feels like she is suffocating. She gets occasional dry mouth and has adjusted the humiditylevel which helped some but she still gets dry mouth a couple of times a week. </p><p>She falls asleep instantly, she wakes times a night and gets right back to sleep. She just continues tohave persistent fatigue. </p><p>
</p><p>ESS today 07/15</p>< p>
</p><p>COMPLIANCE DATA REVIEWED WITH PATIENT: {{03/31/21-04/28/21# DATES}}, Used {{30# 25 30}}/30 days, average use {{6# 5 6}} hours {{25# number}} minutes a night, mean pressure {{9.4# 8 9}}cm, 90 th percentile pressure {{10.9# 9 10}}cm, time in large air leak {{35# 5 10}} minutes, AHI {{0.9# 1 2}}/hour.</p>Review of Systems: ROS as noted in the HPI Review of Systems None recorded. Physical Exam ? Notes: <p>General: A&O, well groome d {{over weight obese morbidly obese normal weight * thin}}.
HEAD: n ormocephalic & atraumatic.
EYES: non icteric.
LUNGS: CTA all f ields. Good air movement.
CARDIO: RRR without murmur, gallop or thrill.
NEURO: A&O. Normal gait.
PSYCH: Normal mood and affect.
CUTANEOUS: no overt lesions or rashes</p>
== END 2021-05-29 15:09 ==
PROVIDERS: PCP Family Medicine; Visit Provider Family Medicine
DX: J40 Bronchitis, not specified as acute or chronic (principal); R50.9 Fever, unspecified; R53.83 Other fatigue
CPT/HCPCS: 71046

== ENCOUNTER 2021-05-29 16:07 | Outpatient (CLI) | payer OTHER, SELFPAY ==
[2021-05-29 12:15] LABS: Abs Immature Grans 0.04 10^3/uL (0.0-0.06); Absolute Eosinophil Count 0.11 10^3/uL (0.0-0.7); Absolute Lymphocyte Count 3.62 10^3/uL (1.2-3.4); Absolute Monocyte Count 0.47 10^3/uL (0.1-0.8); Absolute Neutrophil Count 6.86 10^3/uL (1.2-6.7); Basophils % 0.4; HCT 38.1 % (36.0-46.0); HGB 12.8 g/dL (11.2-15.7); Immature Grans % 0.4; Lymphocytes % 32.5; MCH 32.3 pg (27.0-33.0); MCHC 33.6 % (32.0-36.0); MCV 96.2 fL (80-95); MPV 9.2 fL (8.0-11.0); Monocytes % 4.2; Neutrophils % 61.5; Nucleated RBC 0 %; Platelet Count 340 10^3/uL (130-400); RBC 3.96 10^6/uL (3.93-5.22); RDW 12.8 % (11.7-14.6); RDW-SD 45.7 fL; WBC 11.15 10^3/uL (4.4-10.8)
[2021-05-29 12:17] LABS: Absolute Basophil Count 0.04 10^3/uL (0.0-0.2)
[2021-05-29 12:27] LABS: ALT 21 U/L (14-59); AST 16 U/L (15-37); Albumin 4.1 g/dL (3.4-5.0); Alkaline Phosphatase 92 U/L (46-116); Anion Gap 13.6 mmol/L (3-11); BUN 11 mg/dL (7-18); Bilirubin, Total 0.3 mg/dL (0.2-1.0); C-Reactive Protein 0.29 mg/dL (0.0-0.3); CO2 24.4 mmol/L (21.0-32.0); CREATININE 0.8 mg/dL (0.55-1.02); Calcium 9.1 mg/dL (8.5-10.1); Chloride 105 mmol/L (98-107); Glucose 138 mg/dL (74-106); Potassium 3.6 mmol/L (3.5-5.1); Sodium 143 mmol/L (136-145); Total Protein 7.8 g/dL (6.4-8.2)
[2021-05-29 13:05] LABS: ESR < 1 mm/hr (0-30)
[2021-06-02 10:29] LABS: Lyme Ab w Rflx to Lyme Confirm Negative (Negative)
[2021-06-03 18:41] LABS: Anaplasma phagocytophilum Negative (Negative); B. miyamotoi PCR Negative (Negative); Babesia divergens/MO-1 Negative (Negative); Babesia duncani Negative (Negative); Babesia microti Negative (Negative); Ehrlichia chaffeensis Negative (Negative); Ehrlichia ewingii/canis Negative (Negative); Ehrlichia muris eauclairensis Negative (Negative)
== END 2021-05-29 16:08 | disposition home or self-care (01) ==
LOC: LBO 16:08
PROVIDERS: PCP Family Medicine; Visit Provider Family Medicine
DX: R50.9 Fever, unspecified (principal); R53.83 Other fatigue; J40 Bronchitis, not specified as acute or chronic
CPT/HCPCS: 36415; 80053; 85652; 87040; 87798; 85025; 86140; 86618

== ENCOUNTER 2021-05-30 01:41 | Outpatient (CLI) | payer OTHER, SELFPAY ==
[2021-05-31 13:00] LABS: COVID-19 RT-PCR UVMMC Result Negative (Negative)
== END 2021-05-30 01:42 | disposition home or self-care (01) ==
LOC: LBO 01:42
PROVIDERS: PCP Family Medicine; Visit Provider Family Medicine
DX: Z20.822 Contact with and (suspected) exposure to COVID-19 (principal); R53.83 Other fatigue; R50.9 Fever, unspecified; J40 Bronchitis, not specified as acute or chronic
CPT/HCPCS: U0003

== ENCOUNTER 2021-07-21 03:12 | Outpatient (CLI) | payer OTHER, SELFPAY ==
[2021-07-21 13:41] LABS: Source Nasal/Nares
[2021-07-21 18:40] LABS: COVID-19 PCR Negative (Negative)
== END 2021-07-21 03:13 | disposition home or self-care (01) ==
PROVIDERS: PCP Family Medicine; Visit Provider Surgery
DX: Z20.822 Contact with and (suspected) exposure to COVID-19 (principal); Z01.818 Encounter for other preprocedural examination
CPT/HCPCS: 87635

== ENCOUNTER 2021-07-21 14:41 | Outpatient (REF) | payer OTHER, SELFPAY ==
--- NOTE | 2021-07-21 13:30 | SKI_PTH ---
PATIENT: Yasmine Matthew LOC: [facility] U#:[id number] AGE/SX: 51/F ROOM: RE07/21/[address]: Andreia Downs DO : 1970 BED: DIS: 07/21/2021 SPEC #: [id number] RECD: 07/21/21 18:21 STATUS: SHAHRAMKamla REQ #: [id number] RENE: 07/21/21 13:[address]: Andreia Downs DEPT: Surgical Specimen RECD BY: Jolene Ram ENTERED: 07/21/21 18:21 SP TYPE: LEN SCHWARZ DR: Kati Rubio MD, DC Tissues: 1 - SKIN BIOPSY(SHAVE/PUNCH) Procedures: SKIN LEVEL 4 Comments: [id number]
== END 2021-07-21 14:42 | disposition home or self-care (01) ==
LOC: LBN 14:41
PROVIDERS: PCP Family Medicine; Visit Provider Obstetrics & Gynecology
DX: L82.1 Other seborrheic keratosis (principal); Z87.411 Personal history of vaginal dysplasia
CPT/HCPCS: 88305

== ENCOUNTER 2021-07-23 08:29 | Day surgery (SDC) | payer OTHER, SELFPAY ==
--- NOTE | 2021-06-06 11:31 | PDOC.ANES ---
Date of service: 06/06/21 Time of Service: 11:32 Anesthesia Note Report Anesthesia Note: I spoke to Yasmine today. She has has fevers since the beginning in early May. She was diagnosed with bronchitis on 05/22 and treated with a Z-Pack. Since then, even after completing her antibiotic, she has had daily low grade fevers for which she takes daily Tylenol/Ibuprofen. She is 2+ weeks post antibiotic. She denies cough, shortness of breath but does have moderate to severe sinus congestion as well as very noticeable post nasal drip. She also has a long standing history of allergies and recently saw ENT for was prescribed loratidine. She has been tested for multiple things which have all been negative due to the ongoing low grade fevers. I discussed with her the possible respiratory /pulmonary complications given post nasal drip, although these may not occur at all. Patient states she would feel more comfortable given her continued fevers despite treatment as well as significant nasal congestion/post nasal drip to postpone her colonoscopy for 2-4 weeks and see how she progresses with her new allergy medications and clinical course in general.
--- NOTE | 2021-07-23 06:50 | W.PREOPHP ---
Date of service: 07/23/21 Time of Service: 10:00 Assessment and Plan Assessment and plan (1) Encounter for colonoscopy due to history of adenomatous colonic polyps: Status: Acute Assessment and plan: Yasmine is a pleasant 51-year-old female who is back to see me for repeat colonoscopy. Her last colonoscopy was in 2015 where she was found to have a tubular adenoma. She has not had any change in bowel habits, unintentional weight loss, melena or hematochezia. We again discussed the colonoscopy and its risks and benefits. We also reviewed the prep. Proceed with colonoscopy under sedation. Risks, benefits and complications have been reviewed. Complications include but are not limited to bleeding, pain, perforation, missed small lesion/polyp, sore throat, aspiration and adverse reaction to the medications. Questions were entertained and answered to their satisfaction and they wished to proceed. No guarantees were given or implied. History of Present Illness Narrative: Yasmine is back to see me today to discuss a follow-up colonoscopy. She denies any changes in bowel habits, melena, hematochezia, abdominal pain or unintentional weight loss. She has no family history of colon cancer. She does have a personal history of stage III breast cancer as well as a OUMAR II. she is on daily tamoxifen and will hopefully be able to come off of that in the next few months. Since about September she has felt rundown. She was felt to have a sinus infection and was started on antibiotics and steroids. When this did not help she was referred to ENT which did not feel that it was a sinus infection but placed her on some nasal antibiotics. The symptoms seem to go away up until May 22 when she started with a cough and a high temp. It was felt that she had bronchitis and she was again started on antibiotics. Her cough has subsided at this point except for a morning cough after she takes off her CPAP which she uses at nighttime. She continues to have very low-grade temps of 99-100 which they do not know where this is coming from. Her chest x-ray is normal. She does not have shortness of breath. She does not have chest pain. Because of the low-grade fevers I did discuss this case with Scooby Chew. As she is not symptomatic with a cough he felt that it was okay to proceed with colonoscopy this coming Wednesday the . I did ask the patient to call us if she starts to have increase in cough worsening fevers or other new symptoms. The patient was tested for Covid on the ninth and was negative. Review of Systems Cardiovascular Cardiovascular: Denies chest pain, Denies chest pain at rest, Denies irregular heart rhythm, Denies dyspnea and Denies dyspnea on exertion Respiratory Respiratory: Denies cough, Denies dyspnea and Denies dyspnea on exertion Gastrointestinal Gastrointestinal: Reports as per HPI Genitourinary Genitourinary: Denies dysuria, Denies urinary incontinence and Denies urinary urgency Endocrine Endocrine: Reports system reviewed and no additional complaints, except as documented Hematologic/Lymphatic Hematologic/Lymphatic: Denies easy bruising and Denies lymphadenopathy [facility] Medical History Abnormal Pap smear of cervix Abnormal thyroid blood test (07/08/17) Adjustment disorder with mixed emotional features Arthritis of hand Asthma BRCA negative Carpal tunnel syndrome on both sides Chronic back pain Constipation Diverticulitis Dizziness (07/05/17) Gastrointestinal problem GERD (gastroesophageal reflux disease) High cholesterol History of ectopic Hypothyroidism IC (interstitial cystitis) Liver lesion Malaise and fatigue Malignant neoplasm of right breast, stage 3 Pain of right fibula (08/02/17) Palliative care patient Paresthesia of left foot Peripheral neuropathy 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; HSIL; VIN2 History of lymph node excision RIGHT LYMPH NODE REMOVAL 2012 , Ectopic Right Radiofrequency-medial lumbar/sacral 08/05/17 Family History Mother , age 41 Heart disease Hyperlipidemia Myocardial infarction Stroke Father CAD (coronary artery disease) Heart disease Hyperlipidemia Emphysema lung Hx of CABG Alcohol abuse FAMILY HISTORY Hyperlipidemia Ovarian cancer Cancer of cervix Sister No problems noted. Brother No problems noted. Son No problems noted. Son No problems noted. Son No problems noted. Daughter Essential hypertension Substance abuse Maternal Grandfather No problems noted. Paternal Grandfather , age 60ish No problems noted. Maternal Grandmother , age 60s No problems noted. Paternal Grandmother , age 70ish No problems noted. Social History Smoking/Tobacco Use Status: Current every day Tobacco Type: cigarettes Tobacco: How many years used: 25 Quit status: considering quitting Second Hand Exposure: Yes Smoking risk assessment performed?: Yes Alcohol Intake: current Alcohol Intake frequency: 0-2 drinks per day Alcohol type: beer and wine Drug use: Never Substance use type: does not use Caregiver/Support person: No Household members: spouse and children Housing: house Number of Children: 4 Communication Needs: None Do you need help understanding health information?: Never current occupation: assistant operations manager Pets and animals: Yes Pets and animals: dog(s) Sexually active: No Do you think of yourself as: straight/heterosexual Current gender identity: female What is your relationship status?: How often do you talk on the phone with friends or family?: twice per week How often do you get together with friends or relatives?: once per week How often do you attend sikh or mandaeism services?: 1-3 times per year Do you belong to any clubs or organized social groups?: no Panel score (0-1 are the most socially isolated patients): 2 What type of physical activity do you participate in: walking Duration: 15-30 minutes/day Frequency: 3-4 times per week Lizy/Druze: Jew Special lizy needs: No Seatbelt use: always Helmet use: Yes Helmet use: always Drive intox or ride w/intox seasonal driver: No Do you feel safe at home: Yes Do you feel safe in your relationship?: Yes History History 7 Para 4 Hx # Term Pregnancies Multiple births Hx # Pregnancies Ectopic pregnancies AB induced Hx Number of Living Children AB spontaneous Meds Allergies and Home Medications Allergies Allergy/AdvReac Type Severity Reaction Status Date / Time fluconazole Allergy Intermediate TONGUE AND Verified 07/23/21 08:53 LIPS SWELLING latex Allergy RASH Verified 07/23/21 08:53 adhesive AdvReac Intermediate RASH Verified 07/23/21 08:53 venlafaxine HCl AdvReac NAUSEA Verified 07/23/21 08:53 [From Effexor] Home Medications Medication Instructions Recorded Confirmed Type multivitamin [Multi-Day] 1 ea PO DAILY 06/22/13 07/23/21 History budesonide-formoterol HFA 160 2 puff IH BID PRN gm 01/16/19 07/23/21 History mcg-4.5 mcg/actuation aerosol inhaler acetaminophen 650 mg 1,300 mg PO BID tab 01/18/20 07/23/21 History tablet,extended release ibuprofen 800 mg tablet 600 mg PO BID tab 01/18/20 07/23/21 History tamoxifen 20 mg tablet 20 mg PO DAILY 04/25/20 07/23/21 History fluticasone propionate 50 2 spray INTRANASAL DAILY #9.9 ml 10/01/20 07/23/21 Rx mcg/actuation nasal spray,suspension amlodipine 5 mg tablet 5 mg PO DAILY #90 tab 04/22/21 07/23/21 Rx ropinirole 1 mg tablet 0.5 mg PO QHS tab 04/22/21 07/23/21 History bisacodyl 5 mg tablet,delayed 5 mg PO ONCE #4 tab 06/03/21 07/23/21 Rx release levocetirizine 5 mg tablet 5 mg PO BID tab 06/03/21 07/23/21 History polyethylene glycol 3350 17 gram 255 g PO DAILY #15 ea 06/03/21 07/23/21 Rx oral powder packet levothyroxine 50 mcg tablet 50 mcg PO DAILY #90 tab-cap 06/08/21 07/23/21 Rx omeprazole magnesium 20 mg 20 mg PO DAILY #90 tab-cap 06/08/21 07/23/21 Rx tablet,delayed release Exam Const General: healthy appearing and comfortable Resp Effort & Inspection: normal respiratory effort Auscultation: clear to auscultation bilaterally Cardio Rate: regular rate Rhythm: regular rhythm Heart Sounds: no click, no gallops and no murmurs
--- NOTE | 2021-07-23 06:53 | W.PM.DSUDISC ---
Discharge Plan Disposition Patient Disposition: HOME Condition: Good Discharge Details Reason For Visit: Colonoscopy Attending Provider: Desire Mclaughlin Primary Care Provider: Kati Rubio Home Meds and New Rx's Prescriptions: Continued budesonide-formoterol [Symbicort] 160-4.5 mcg/actuation HFA aerosol inhaler 2 puff IH BID PRNRF: 0 amlodipine 5 mg tablet 5 mg PO DAILY Qty: 90 RF: 6 ropinirole 1 mg tablet 0.5 mg PO QHS RF: 0 levocetirizine [Xyzal] 5 mg tablet 5 mg PO BID RF: 0 tamoxifen 20 mg tablet 20 mg PO DAILY RF: 0 multivitamin [Multi-Day] 1 EACH tablet 1 ea PO DAILY RF: 0 ibuprofen 800 mg tablet 600 mg PO BID RF: 0 fluticasone propionate 50 mcg/actuation spray,suspension 2 spray intranasal DAILY Qty: 9.9 RF: 5 levothyroxine 50 mcg tablet 50 mcg PO DAILY Qty: 90 RF: 12 omeprazole magnesium [Prilosec OTC] 20 mg tablet,delayed release (DR/EC) 20 mg PO DAILY Qty: 90 RF: 12 acetaminophen 650 mg tablet extended release 1,300 mg PO BID RF: 0 Discontinued bisacodyl [Dulcolax (bisacodyl)] 5 mg tablet,delayed release (DR/EC) 5 mg PO ONCE Qty: 4 RF: 0 polyethylene glycol 3350 17 gram powder in packet 255 g PO DAILY Qty: 15 RF: 0 Discharge Instructions Instructions: Diverticulosis (DC) Additional Instructions: Findings: Diverticulosis Follow up: 10 years Please call if you develop: fevers >101.5 Nausea or Vomiting Abdominal pain that is not transient Rectal bleeding that is more then a tbsp A hard abdomen and inability to pass gas DAY SURGERY UNIT POST ENDOSCOPY INSTRUCTIONS Instructions for everyone who is given Anesthesia: For your safety, please do the following for the next 24 Hours: a. Do not drive or operate dangerous equipment b. Do not drink alcohol beverages or use any recreational drugs for the first 24 hours or while taking pain medications. The medications in your body may have a reaction that can be dangerous. c. Do not make any important decisions or sign any important papers 1. Generally there are no restrictions on your activity after a day or so has gone by, but you may feel a bit fatigued for a few days. 2. After you arrive home you may have a light meal and return to a normal diet as you can tolerate it without feeling sick to your stomach. 3. After surgery, you may feel pain or discomfort. This should be only transient, but if it persists please contact your doctor. 4. If there are any questions regarding the findings of your procedure, please feel free to contact your doctor. 6. If you are unable to contact your doctor with a problem, contact the hospital at [phone]. 7. Continue all your regular medications unless directed otherwise. I understand the above instructions and have no questions. Signature of Patient or Responsible Adult Escort Date/Time Name of Responsible Adult Escort Signature of Nurse Date/Time Activity:: Activity as Tolerated Diet:: high fiber diet Discharge Orders Discharge Orders: Discharge Order (Routine); Ordered 07/23/21 Ordered By: Desire Mclaughlin DS: Diagnosis Discharge Diagnosis (1) Encounter for colonoscopy due to history of adenomatous colonic polyps: Status: Acute
--- NOTE | 2021-07-23 06:54 | W.COLOREPORT ---
Date of service: 07/23/21 Time of Service: 10:43 Colonoscopy Report Date of procedure: 07/23/21 Pre-op diagnosis general: Screening colonoscopy, Hx of colon polyps Post-op diagnosis procedure note: same Procedure: Colonoscopy Surgeon: Desire Mclaughlin Anesthesia Type: General:No Airway (See anesthesia record) Estimated blood loss (mL): 0 Pathology: none sent Complications: None Disposition: same day Indications: Yasmine is a pleasant 51-year-old female who is back to see me for repeat colonoscopy. Her last colonoscopy was in 2016 where she was found to have a tubular adenoma. She has not had any change in bowel habits, unintentional weight loss, melena or hematochezia. We again discussed the colonoscopy and its risks and benefits. We also reviewed the prep. Proceed with colonoscopy under sedation. Risks, benefits and complications have been reviewed. Complications include but are not limited to bleeding, pain, perforation, missed small lesion/polyp, sore throat, aspiration and adverse reaction to the medications. Questions were entertained and answered to their satisfaction and they wished to proceed. No guarantees were given or implied. Prep: Miralax/Dulcolax Procedure Start Time: 10:13 Procedure End Time: 10:34 Retraction Time: 13 minutes Findings: Erwin-diverticulosis Procedure Description: After informed consent was obtained the patient was taken to the procedure room and placed in a left decubitous position. Monitors were applied and a time out was done. The patients name, date of , procedure, allergies to medications and metal in their body was reviewed. The patient was then sedated. Once sedated and comfortable a rectal exam was done. External exam was normal. Internal exam revealed a normal sphincter tone and no palpable masses. The scope was then introduced and retro-flexed. No internal hemorrhoids, polyps or masses were identified on retro-flexion. The scope was then advanced to the cecum without difficulty. The ileocecal vlave and appendiceal orifice were identified. The prep was good. The scope was then slowly retracted over 13 minutes back into the rectum. There were no polyps. There was moderate erwin- diverticulosis noted. The scope was removed and the patient was woken up and taken back to Same day surgery in stable condition. The patient tolerated the procedure well and there were no immediate complications. Follow up: The patient should follow up in 10 years unless they develop changes in bowel habits or other new gastrointestinal complaints.
[2021-07-23 08:44] VITALS: BP 117/79; PULSE 96; RESP 16; TEMP 37.1; O2SAT 98
--- NOTE | 2021-07-23 09:08 | ANES.PREOP_ITS ---
General Info Date of Service Date Performed: 07/23/21 Height: 5 ft 4 in Weight: 61.6 kg Body Mass Index (BMI): 23.3 Surgical Procedure: Operation Date: 07/23/21 10:05 Proposed Procedures Side Surgeon p Colonoscopy Desire Mclaughlin MD Meds Allergies and Home Medications Allergies Allergy/AdvReac Type Severity Reaction Status Date / Time fluconazole Allergy Intermediate TONGUE AND Verified 07/23/21 08:53 LIPS SWELLING latex Allergy RASH Verified 07/23/21 08:53 adhesive AdvReac Intermediate RASH Verified 07/23/21 08:53 venlafaxine HCl AdvReac NAUSEA Verified 07/23/21 08:53 [From Effexor] Home Medication Medication Instructions Recorded multivitamin [Multi-Day] 1 ea PO DAILY 06/22/13 budesonide-formoterol HFA 160 2 puff IH BID PRN gm 01/16/19 mcg-4.5 mcg/actuation aerosol inhaler acetaminophen 650 mg 1,300 mg PO BID tab 01/18/20 tablet,extended release ibuprofen 800 mg tablet 600 mg PO BID tab 01/18/20 tamoxifen 20 mg tablet 20 mg PO DAILY 04/25/20 fluticasone propionate 50 2 spray INTRANASAL DAILY #9.9 ml 10/01/20 mcg/actuation nasal spray,suspension amlodipine 5 mg tablet 5 mg PO DAILY #90 tab 04/22/21 ropinirole 1 mg tablet 0.5 mg PO QHS tab 04/22/21 bisacodyl 5 mg tablet,delayed 5 mg PO ONCE #4 tab 06/03/21 release levocetirizine 5 mg tablet 5 mg PO BID tab 06/03/21 polyethylene glycol 3350 17 gram 255 g PO DAILY #15 ea 06/03/21 oral powder packet levothyroxine 50 mcg tablet 50 mcg PO DAILY #90 tab-cap 06/08/21 omeprazole magnesium 20 mg 20 mg PO DAILY #90 tab-cap 06/08/21 tablet,delayed release Current Visit Medications: Current Medications Generic Name Dose Route Start Last Admin Trade Name Freq PRN Reason Stop Dose Admin Hyoscyamine Sulfate 0.125 mg 07/23/21 06:53 Hyoscyamine 0.125 Mg Sl/Oral/Chew SL DIRECTED PRN Ringer's Solution 1,000 mls @ 80 mls/hr 07/23/21 06:00 IV 08/21/21 23:59 INFUSION [facility] IV Miscellaneous Supplies 1 each 07/23/21 06:00 Iv Access IV 08/21/21 23:59 DIRECTED [facility] Ondansetron HCl 4 mg 07/23/21 06:53 Ondansetron 4 Mg/2 Ml Vial IVP Q4H PRN PRN Nausea / Vomiting Sodium Chloride 0 ml 07/23/21 06:00 Normal Saline Flush 10 Ml Syr IV 08/21/21 23:59 PRN PRN PFSH Active Problems Active Problems: Problem Status Onset Code Encounter for colonoscopy due to history of adenomatous colonic polyps Z12.11, Z86.010 Pigmented skin lesion L81.9 Stress at home F43.9 Tachycardia R00.0 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 Paresthesia of left foot R20.2 Carpal tunnel syndrome on both sides G56.03 Peripheral neuropathy G62.9 Fever R50.9 Screening for colon cancer Z12.11 Bronchitis J40 Sinusitis J32.9 Chronic nasal congestion R09.81 Encounter for annual physical exam Z00.00 Fatigue R53.83 Spinal stenosis of lumbar region with radiculopathy M48.061, M54.16 Cubital tunnel syndrome of both upper extremities G56.23 High cholesterol E78.00 BRCA negative Z13.71 Asthma J45.909 Hypothyroidism Ulnar neuropathy G56.20 Tubular adenoma D36.9 Tobacco use disorder 09/10/11 F17.200 Stress incontinence of urine 12/06/17 N39.3 Spinal stenosis of lumbar region 02/02/17 M48.061 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 Malignant neoplasm of right breast, stage 3 C50.911 Liver lesion K76.9 IC (interstitial cystitis) N30.10 GERD (gastroesophageal reflux disease) K21.9 Diverticulitis K57.92 Constipation K59.00 Arthritis of hand M19.049 Adjustment disorder with mixed emotional features F43.29 Palliative care patient Z51.5 Medical History Medical History Abnormal Pap smear of cervix Abnormal thyroid blood test (07/08/17) Adjustment disorder with mixed emotional features Arthritis of hand Asthma BRCA negative Carpal tunnel syndrome on both sides Chronic back pain Constipation Diverticulitis Dizziness (07/05/17) Gastrointestinal problem GERD (gastroesophageal reflux disease) High cholesterol History of ectopic Hypothyroidism IC (interstitial cystitis) Liver lesion Malaise and fatigue Malignant neoplasm of right breast, stage 3 Pain of right fibula (08/02/17) Palliative care patient Paresthesia of left foot Peripheral neuropathy Pharyngeal mass (06/06/15) Pigmented skin lesion Spinal stenosis of lumbar region (02/02/17) Stress incontinence of urine (12/06/17) Thickened endometrium Tobacco use disorder (09/10/11) Tubular adenoma Ulnar neuropathy OUMAR II (vulvar intraepithelial neoplasia II) Surgical History Surgical History Breast, Lumpectomy (~2000) right Cholecystectomy Diagnostic Laproscopy (~2004) for pain Hemorrhoidectomy History of endometrial biopsy (~07/20/19) 07/20/19 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; HSIL; VIN2 History of lymph node excision RIGHT LYMPH NODE REMOVAL 2012 , Ectopic Right Radiofrequency-medial lumbar/sacral 08/05/17 Tobacco Smoking/Tobacco Use Status: Current every day Tobacco Type: cigarettes Tobacco: How many years used: 25 Passive smoking exposure: Yes Quit Status: considering quitting Second hand exposure: Yes Alcohol Alcohol Intake: current Alcohol intake frequency: 0-2 drinks per day Alcohol type: beer and wine Substance Use Substance use: Never Substance use type: does not use Prental History History 7 Para 4 Hx # Term Pregnancies Multiple births Hx # Pregnancies Ectopic pregnancies AB induced Hx Number of Living Children AB spontaneous Vital Signs and Lab Results Vital Signs Most Recent Vital Signs in EMR: Most Recent Vital Signs Temp Pulse Resp BP Pulse Ox 37.1 C 96 H 16 117/79 98 07/23/21 08:44 07/23/21 08:44 07/23/21 08:44 07/23/21 08:44 07/23/21 08:44 Lab Results Blood Type / Crossmatch: No Data to Display Complete Blood Count: No Data to Display Complete Metabolic Panel: No Data to Display Liver Function Panel: No Data to Display Coagulation Panel: No Data to Display Cardiac Panel: No Data to Display Arterial Blood Gas: No Data to Display Venous Blood Gas: No Data to Display Pancreas Panel: No Data to Display Thyroid Panel: No Data to Display Infectious Disease: Coronavirus (COVID-19)(PCR) Negative (Negative) 07/21/21 08:39 08/30/21 Coronavirus 2019 Source Nasal/Nares 07/21/21 08:39 07/21/21 Blood Cultures: No Data to Display Toxicology Panel: No Data to Display Panel: No Data to Display Imaging and Studies Imaging and Studies Stress Test Summary: 01/11/20 Exam(s) a NM:NM MPI rest & stress grp APPROVED REPORT Exam: Exercise Treadmill Patient Location: Out-Patient Room/Bed: Stress Nurse: Sharon Sky RN BMI: 25.40 Baseline Rhythm: Sinus Rhythm Indications: Fatigue. Chest pain. Medical History Medical History: Hyperlipidemia Cardiac Medications: Magnesium., Allergies: Fluconazole. Latex. Adhesive. Venlafaxine. Cardiac Risk Factors: FHX of CAD, Hyperlipidemia, Asthma, Smoking Pretest Chest Pain Characteristics: Exertional Chest pain Exercise History: Physically active Lung Sounds: Clear to auscultation Heart Sounds: Regular Stress Test Details Test: Exercise stress testing was performed using a Reyes protocol. Rest Isotope: Tc-99m Sestamibi. Dose: 10.5 Date: 01/11/2020 Injection Time: 0925 Stress Isotope: Tc-99m Sestamibi. Dose: 35.5 Date: 01/11/2020 Injection Time: 1122 HR Resting HR Supine: 75 bpmMax Heart Rate (APMHR): 169 bpm Resting HR Standin bpmTarget HR (85% APMHR): 143 bpm Max HR Achieved: 160 bpm % of APMHR: 94 HR response to stress: Normal HR response to stress BP Resting BP Supine: 122/84 mmHg Resting BP Standin/88 mmHg Max BP: 162/80 mmHg Recovery BP: 122/86 mmHg BP response to stress: Normal blood pressure response to stress. ECG Resting ECG: Sinus Rhythm Stress ECG: Sinus Tachycardia ST Change: No significant ST segment changes Arrhythmia: None Recovery ECG: Sinus Rhythm Recovery ST Change: No significant ST segment changes Recovery Arrhythmia: None Clinical Reason for Termination: Fatigue Stress Symptoms: General Fatigue Exercise duration: 6 min16 sec Highest Stage Reached: Stage 2: 2.5 mph at 12% grade. Exercise capacity: 7.43 METs Functional Capacity: Above average capacity Scale: Active Stress ECG Conclusion 1. Good exercise tolerance of 7.43 METS limited by fatigue 2. Normal heart rate and blood pressure response to exercise 3. Electrocardiographically negative for myocardial ischemia at 94% of predicted heart rate for age 4. No dysrhythmias noted Protocol Used: Reyes Protocol Echocardiogram Summary: 01/13/20 Conclusion Left Ventricle : The left ventricle is normal size. Left ventricular systolic function is normal. There is normal LV segmental wall motion. There is normal left ventricular wall thickness. The posterior wall thickness is normal. The septum is normal. Diastolic function was indeterminate. LVEF is 50-54%. Right Ventricle : The right ventricle is normal size. The right ventricular systolic function is normal. Atria : The left atrium size is normal. The right atrium size is normal. Aortic Valve : Aortic valve is trileaflet. No aortic regurgitation is present. There is no aortic valvular stenosis. Mitral Valve : The mitral valve is normal in structure. Trace mitral regurgitation. No evidence of mitral valve stenosis. Tricuspid Valve : The tricuspid valve is normal in structure. Mild tricuspid regurgitation. Great Vessels : IVC is normal in size and collapses >50% with inspiration. There are no prior echocardiograms available for comparison. Wall motion Left Ventricle The left ventricle is normal size. Left ventricular systolic function is normal. There is normal left ventricular wall thickness. The posterior wall thickness is normal. The septum is normal. There is normal LV segmental wall motion. Diastolic function was indeterminate. LVEF is 50-54%. Right Ventricle The right ventricle is normal size. The right ventricular systolic function is normal. Atria The left atrium size is normal. The right atrium size is normal. Aortic Valve Aortic valve is trileaflet. There is no aortic valvular stenosis. No aortic regurgitation is present. Mitral Valve The mitral valve is normal in structure. No evidence of mitral valve stenosis. Trace mitral regurgitation. Tricuspid Valve The tricuspid valve is normal in structure. There is no tricuspid valve stenosis. Mild tricuspid regurgitation. Pulmonic Valve Pulmonic valve is not well visualized. There is no pulmonic valvular stenosis. Trace pulmonic regurgitation. Great Vessels The aortic root is normal in size. The ascending aorta size is normal. IVC is normal in size and collapses >50% with inspiration. Pericardium There is no pericardial effusion. 2D Dimensions IVSD d PLAX 0.88 cm F: 0.6-1.0LV Vol A2C d MOD 97.0 mL LVPW d PLAX 0.81 cm F: 0.6 - 1.0LV Vol A4C d MOD 83.3 mL LVID d PLAX 4.66 cm F: 3.8 - 5.2LA vol/ BSA A2C s A-L17.9 mL/m2 LVDs 3.30 cm F: 2.2 - 3.5LA vol/ BSA A4C s A-L22.0 mL/m2 Ao Root d 2.69 cm F: 2.7 - 3.3LA Vol/ BSA Biplane s A-L 21.1 mL/m2 RA Area A4C8.54 cm2LA Area A4C s MOD 13.81 cm2 RA Vol/ BSA A4C s A-L 10.7 mL/m2LA Area A2C s MOD 13.28 cm2 Ao Asc Diam d 2.55 cm F: 2.3 - 3.1LV EF A4C MOD 52.9 % LV EF Teichholz 55.7 %LV EF A2C MOD 52.7 % LVEF (Huang's)50.33 % F: 54 - 74LV EF Biplane MOD 50.3 % LV Nmvbqe21.47 mL F: 46 - 106 LV Volume Index42.96 mL/m2 F: 29 - 61 LV Vol Biplane MOD 92.8 mL FS28.95 % LV Diastology E/A Ratio 0.7 MV E Vmax 0.59 (0.4-1.3 m/s) MV A Vmax 0.90 (0.4-1.3 m/s) MV E/A Ratio 0.64 Aortic Valve LVOT Area2.71 cm2AoV Area Vmax2.26 cm2 LVOT Vmax 1.07 m/sAoV Area/ BSA (Vmax)1.32 cm2/m2 LVOT Mean Delgado.0.65 m/sAVA Mean Delgado.1.92 cm2 LVOT Peak Grad 4.6 mmHgAVA Mean Delgado. Index1.12 cm2/m2 LVOT Mean Grad 2.0 mmHg LVOT VTI0.187 m LVOT Diam s 1.85 cm (M/F) 1.5-2.5 AoV Vmax1.28 (0.5-1.3 m/s) Velocity Ratio 0.83 AoV Mean Delgado.0.92 m/s AoV Peak Grad6.6 mmHg LVOT SV 50.60 mL AoV Mean Grad3.6 (<5 mmHg) AoV VTI0.213 (0.18-0.25 m) AoV Area VTI2.38 (2.5-4.5 cm2) AoV Area/ BSA (VTI)1.39 cm/m2 Mitral Valve MV DT 182 (160-240 msec) MV PHT53 msec MV Area PHT 4.16 cm2 Pulmonary Valve PV Vmax 0.84 (0.5-1.5 m/s) PV Peak Grad 2.8 mmHg PV Mean Grad 1.3 mmHg PV VTI 0.194 m Tricuspid Valve TR Peak Grad 14.9 mmHgTR Vmax 1.94 m/s RA Pressure 3.00 mmHg RVSP (TR) 18.0 mmHg Anesthesia Assessment and Plan Anesthesia History Personal History: No History of Anesthesia Complications Family History: No Family History of Anesthesia Complications Exercise Tolerance Exercise Tolerance: Metabolic Equivalents>4 Pertinent Negatives Pertinent Negatives: No Symptoms of GERD (Well controlled with Omeprazole), No Major Cardiovascular Symptoms or Complaints (Well controlled HTN with medicati on) and No Major Pulmonary Symptoms or Complaints (BLADIMIR uses CPAP) Cardiac & Pulmonary Exam Cardiac Exam: Normal S1/S2 Heart Sounds Pulmonary Exam: Clear Bilateral Breath Sounds Airway Exam Known Difficult Airway: No Mallampati Class: 1 Mouth Opening: Normal (> 3cm) Thyromental Distance: Greater than 3 cm Neck Range of Motion: Full ROM Neck Circumference: Normal Teeth Condition: Normal Dentition ASA Classification ASA Score: ASA 2 Emergency Case?: No NPO Status NPO Status: NPO Clears >2 hours, Solids >8 hours Status Status: Not Per Patient Anesthesia Plan Resuscitation Status: Full Code Anesthesia Technique: General Anesthesia Airway Planned: Natural Airway Monitors Used: Standard Monitors
[2021-07-23] MEDS: Lactated Ringers 1,000 ML 80 ML IV (09:10)
[2021-07-23 09:37] VITALS: BMI 23.3
--- NOTE | 2021-07-23 10:42 | W.ANESPOSTOP ---
Postoperative Evaluation Date, Time and Location Date Performed: 07/23/21 Time Performed: 10:42 Patient Location: Day Surgery Unit Vital Signs Most Recent Imported Vital Signs: Most Recent Vital Signs Temp Pulse Resp BP Pulse Ox 37.1 C 96 H 16 117/79 98 07/23/21 08:44 07/23/21 08:44 07/23/21 08:44 07/23/21 08:44 07/23/21 08:44 Most Recent Manually Entered Vital Signs: Adult Blood Pressure: 96/59 Heart Rate: 72 Respirations: 12 Oxygen Saturation (%): 98 Temperature (C): 36.6 C Pain Score (0-10 Scale): 0 Pain Score Most Recent Pain Score: Most Recent Pain Score Pain Level 0 07/23/21 08:44 Assessment Mental Status: Awake (Alert & Oriented to Patient Baseline) Airway and Respiratory Function: Patent airway with normal (patient baseline) respiratory exam Cardiovascular Function: Hemodynamically Stable Hydration Status: Adequately Hydrated Nausea & Vomiting: No Nausea or Vomiting Pain: Pt. Denies Any Pain Peripheral Nerve Block: Patient did not receive a nerve block
[2021-07-23 10:43] VITALS: BP 96/59; PULSE 71; PULSE 72; RESP 12; RESP 16; TEMP 36.6; TEMPC 36.6; O2SAT 97; O2SAT 98
[2021-07-23 11:15] VITALS: BP 110/55; PULSE 69; RESP 16; TEMP 36.6; O2SAT 100
== END 2021-07-23 10:40 | disposition home or self-care (01) ==
LOC: SUR 08:29
PROVIDERS: PCP Family Medicine; Visit Provider Surgery
PROC: 0DJD8ZZ Inspection of Lower Intestinal Tract, Via Natural or Artificial Opening Endoscopic (ICD-10-PCS; CPT 45378; principal; 2021-07-23 10:00)
DX: Z12.11 Encounter for screening for malignant neoplasm of colon (principal); Z86.010 Personal history of colon polyps; K57.30 Diverticulosis of large intestine without perforation or abscess without bleeding
CPT/HCPCS: 45378; J2001

== ENCOUNTER 2021-07-24 11:09 | Outpatient (RCR) | payer OTHER, SELFPAY ==
--- NOTE | 2021-07-24 11:00 | HOLTER_ITS ---
APPROVED REPORT Conclusion This was a 48-hour Holter monitor ordered for tachycardia Rhythm throughout was sinus with an average heart rate of 82. Minimum was 64, maximum 140 There were no ventricular dysrhythmias There were very rare atrial premature beats, a total of 9 and the entire recording There was no atrial fibrillation, no high-grade AV block, no pauses greater than 3 seconds No patient symptoms were reported
== END 2021-08-21 23:59 | disposition home or self-care (01) ==
LOC: RT 11:09
PROVIDERS: PCP Family Medicine; Visit Provider Family Medicine
DX: R00.0 Tachycardia, unspecified (principal)
CPT/HCPCS: 93225; 93226

== ENCOUNTER 2021-10-01 02:32 | Outpatient (CLI) | payer OTHER, SELFPAY ==
[2021-10-01 10:33] LABS: Abs Immature Grans 0.07 10^3/uL (0.0-0.06); Absolute Basophil Count 0.05 10^3/uL (0.0-0.2); Absolute Lymphocyte Count 4.01 10^3/uL (1.2-3.4); Absolute Monocyte Count 0.61 10^3/uL (0.1-0.8); Basophils % 0.4; HCT 36.7 % (36.0-46.0); HGB 12.4 g/dL (11.2-15.7); Immature Grans % 0.6; Lymphocytes % 34.7; MCH 31.4 pg (27.0-33.0); MCHC 33.8 % (32.0-36.0); MCV 92.9 fL (80-95); Monocytes % 5.3; Nucleated RBC 0 %; Platelet Count 373 10^3/uL (130-400); RBC 3.95 10^6/uL (3.93-5.22); RDW 12.5 % (11.7-14.6); RDW-SD 42.7 fL; WBC 11.56 10^3/uL (4.4-10.8)
[2021-10-01 10:37] LABS: Absolute Eosinophil Count 0.12 10^3/uL (0.0-0.7)
[2021-10-01 10:58] LABS: Calcium 8.9 mg/dL (8.5-10.1)
[2021-10-01 10:59] LABS: ALT 22 U/L (14-59); AST 21 U/L (15-37); Albumin 3.8 g/dL (3.4-5.0); Alkaline Phosphatase 94 U/L (46-116); Anion Gap 7.9 mmol/L (3-11); BUN 14 mg/dL (7-18); Bilirubin, Total 0.3 mg/dL (0.2-1.0); CO2 27.1 mmol/L (21.0-32.0); CREATININE 0.7 mg/dL (0.55-1.02); Chloride 106 mmol/L (98-107); Glucose 102 mg/dL (74-106); Sodium 141 mmol/L (136-145); Total Protein 7.3 g/dL (6.4-8.2)
== END 2021-10-01 02:33 | disposition home or self-care (01) ==
LOC: LBO 02:32
PROVIDERS: PCP Family Medicine; Visit Provider Nurse Practitioner Adult Health
DX: C50.911 Malignant neoplasm of unspecified site of right female breast (principal); Z17.0 Estrogen receptor positive status [ER+]
CPT/HCPCS: 36415; 80053; 85025

== ENCOUNTER 2021-10-07 08:53 | Outpatient (CLI) | payer OTHER, SELFPAY ==
--- NOTE | 2021-10-07 08:45 | DI.RAD_ITS ---
Exam(s) XR CHEST 2V PA LATERAL EXAM: XR CHEST 2V PA LATERAL CLINICAL HISTORY: cough r05.9 TECHNIQUE: 2D digital imaging was performed. COMPARISON: CR XR CHEST 2V PA LATERAL from 05/29/2021 FINDINGS: MEDIASTINUM: Normal. HEART: Normal. PULMONARY VASCULATURE: Normal. LUNGS: Clear. PLEURAL SPACE: No pleural effusion or pneumothorax. BONE:Unremarkable for age. Soft tissues: Right upper quadrant surgical clips. IMPRESSION: No acute abnormality. DATA REPOSITORY: RADIATION DOSE DELIVERED:
== END 2021-10-07 09:13 ==
PROVIDERS: PCP Family Medicine; Visit Provider Family Medicine
DX: R05.8 Other specified cough (principal)
CPT/HCPCS: 71046

== ENCOUNTER 2021-10-20 03:33 | Outpatient (CLI) | payer OTHER, SELFPAY ==
[2021-10-20] MEDS: Inhaler, Assist Device 1 EACH MC (08:57)
[2021-10-20] MEDS: Albuterol HFA 18 GM 200 PUFF INH IH (08:57)
--- NOTE | 2021-10-20 16:38 | W.PFT ---
Date of service: 10/20/21 Time of Service: 08:05 Pulmonary Function Test Result Requesting Provider Kati Rubio Indications: Bronchitis Interpretation Spirometry: There is no airflow obstruction. There is no significant bronchodilator response. Impression Normal spirometry Clinical Correlation therefore is recommended.
== END 2021-10-20 03:34 | disposition home or self-care (01) ==
LOC: RT 03:33
PROVIDERS: PCP Family Medicine; Visit Provider Family Medicine
DX: J41.0 Simple chronic bronchitis (principal); Z87.01 Personal history of pneumonia (recurrent); F17.210 Nicotine dependence, cigarettes, uncomplicated
CPT/HCPCS: 94060

== ENCOUNTER 2022-05-22 16:41 | Outpatient (REF) | payer OTHER, SELFPAY ==
[2022-05-25 08:30] LABS: IgE 30 IU/mL (<158)
[2022-05-26 09:53] LABS: IgA 191 mg/dL (85-499); IgG 789 mg/dL (610-1,616); IgM 34 mg/dL (35-242)
== END 2022-05-22 16:42 | disposition home or self-care (01) ==
LOC: LBN 16:41
PROVIDERS: PCP Family Medicine; Visit Provider Student in an Organized Health Care Education/Training Program
DX: J18.9 Pneumonia, unspecified organism (principal)
CPT/HCPCS: 82784; 82785; 82787

== ENCOUNTER 2022-06-09 18:59 | Outpatient (REF) | payer OTHER, SELFPAY ==
[2022-06-09 11:32] LABS: Source Nasal/Nares
[2022-06-09 16:20] LABS: COVID-19 PCR Negative (Negative)
[2022-06-10 11:09] LABS: IgA 185 mg/dL (85-499); IgG 783 mg/dL (610-1,616); IgM 35 mg/dL (35-242)
[2022-06-10 11:34] LABS: IgE 21 IU/mL (<158)
[2022-06-10 17:48] LABS: Myeloperoxidase Ab IgG <0.2 U; Proteinase 3 Ab (PR3) <0.2 U
[2022-06-10 23:02] LABS: Fungitell Qualitative Negative (Negative); Fungitell Quantitative Value <31 pg/mL (<60 pg/mL)
[2022-06-11 14:02] LABS: Diphtheria IgG Ab Positive; Diphtheria IgG Value 0.72 IU/mL; Tetanus IgG Ab Positive
[2022-06-19 15:53] LABS: Result: Not Detected
== END 2022-06-09 19:00 | disposition home or self-care (01) ==
LOC: LBN 18:59
PROVIDERS: PCP Family Medicine; Visit Provider Student in an Organized Health Care Education/Training Program
DX: R93.89 Abnormal findings on diagnostic imaging of other specified body structures (principal); Z11.52 Encounter for screening for COVID-19; J18.9 Pneumonia, unspecified organism
CPT/HCPCS: 82784; 86317; 87449; 87635; 82785; 82787; 83516; 86648; 87385

== ENCOUNTER 2022-06-10 09:27 | Day surgery (SDC) | payer OTHER, SELFPAY ==
[2022-06-10] VITALS (7 sets, daily range): BP systolic 98–139; BP diastolic 61–84; PULSE 85–103; RESP 16–20; TEMP 36.3–36.9; O2SAT 96–99; BMI 23.0
--- NOTE | 2022-06-10 06:32 | W.ANESPRE ---
General Info Date of Service Date Performed: 06/10/22 Height: 5 ft 4 in Weight: 60.781 kg Body Mass Index (BMI): 23.0 Surgical Procedure: Operation Date: 06/10/22 11:10 Proposed Procedure Side Surgeon p Flexible Bronchoscopy w/BAL and Transbronchial Biopsies Rocio Macedo MD Meds Allergies and Home Medications Allergies Allergy/AdvReac Type Severity Reaction Status Date / Time fluconazole Allergy Intermediate TONGUE AND Verified 06/10/22 09:50 LIPS SWELLING latex Allergy RASH Verified 06/10/22 09:50 adhesive AdvReac Intermediate RASH Verified 06/10/22 09:50 venlafaxine HCl AdvReac NAUSEA Verified 06/10/22 09:50 [From Effexor] Home Medication Medication Instructions Recorded multivitamin (Multi-Day tablet) 1 ea PO DAILY 06/22/13 acetaminophen 650 mg 1,300 mg PO BID 01/18/20 tablet,extended release tamoxifen 20 mg tablet 20 mg PO DAILY 04/25/20 ropinirole 1 mg tablet 0.5 mg PO QHS 04/22/21 omeprazole magnesium 20 mg 20 mg PO DAILY #90 tab-caps 06/08/21 tablet,delayed release (Prilosec OTC) amlodipine 5 mg tablet 5 mg PO DAILY #90 tabs 08/21/21 levothyroxine 50 mcg tablet 50 mcg PO DAILY #90 tab-caps 08/21/21 albuterol sulfate 90 mcg/actuation 2 puff inhalation Q6H PRN 09/29/21 aerosol inhaler (Proventil HFA) shortness of breath or wheezing #8.5 grams varenicline 0.5 mg tablet 0.5 mg PO BID #8 tabs 05/22/22 varenicline 0.5 mg tablet 0.5 mg PO DAILY #3 tabs 05/22/22 varenicline 1 mg tablet 1 mg PO BID #56 tabs 05/22/22 tiotropium bromide 2.5 2 puff inhalation DAILY 05/28/22 mcg/actuation mist for inhalation (Spiriva Respimat) loratadine 10 mg tablet 10 mg PO DAILY 06/09/22 acetaminophen 650 mg 1,300 mg PO PRN PRN 06/10/22 tablet,extended release Current Visit Medications: Current Medications Generic Name Dose Route Start Last Admin Trade Name Freq PRN Reason Stop Dose Admin Ringer's Solution 1,000 mls @ 30 mls/hr 06/10/22 06:00 IV 07/09/22 23:59 INFUSION RODO IV Miscellaneous Supplies 1 each 06/10/22 06:00 Iv Access IV 07/09/22 23:59 DIRECTED RODO Sodium Chloride 0 ml 06/10/22 06:00 Normal Saline Flush 10 Ml Syr IV 07/09/22 23:59 PRN PRN Sodium Chloride 0 ml 06/10/22 06:00 Normal Saline 10 Ml Vial IJ 07/09/22 23:59 DIRECTED PRN Sterile Water 0 ml 06/10/22 06:00 Water,Injection,Sterile 10 Ml Vial IJ 07/09/22 23:59 DIRECTED PRN PFSH Active Problems Active Problems: Problem Status Onset Code High cholesterol E78.00 BRCA negative Z13.71 Asthma J45.909 Arthritis of hand M19.049 Constipation K59.00 Diverticulitis K57.92 GERD (gastroesophageal reflux disease) K21.9 IC (interstitial cystitis) N30.10 Liver lesion K76.9 Malignant neoplasm of right breast, stage 3 C50.911 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 Spinal stenosis of lumbar region 02/02/17 M48.061 Stress incontinence of urine 12/06/17 N39.3 Tubular adenoma D36.9 Ulnar neuropathy G56.20 Hypothyroidism 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 Paresthesia of left foot R20.2 Cubital tunnel syndrome of both upper extremities G56.23 Carpal tunnel syndrome on both sides G56.03 Peripheral neuropathy G62.9 Spinal stenosis of lumbar region with radiculopathy M48.061, M54.16 Fatigue R53.83 Encounter for annual physical exam Z00.00 Chronic nasal congestion R09.81 Sinusitis J32.9 Stress at home F43.9 Pigmented skin lesion L81.9 Cough R05.9 Nicotine dependence, cigarettes, uncomplicated F17.210 Recurrent pneumonia J18.[address] R93.89 Encounter for screening for COVID-[address] R93.89 Low immunoglobulin 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; HSIL; VIN2 History of lymph node excision RIGHT LYMPH NODE REMOVAL 2011 Hx of tonsillectomy Normal colonoscopy (~07/2021) , Ectopic Right Radiofrequency-medial lumbar/sacral 08/05/17 Tobacco Smoking/Tobacco Use Status: Current every day Tobacco Type: cigarettes Passive smoking exposure: Yes Second hand exposure: Yes Alcohol Alcohol Intake: current Alcohol intake frequency: a few times a week Alcohol type: beer and wine Substance Use Substance use: Never Substance use type: does not use Prental History History 7 Para 4 Hx # Term Pregnancies Multiple births Hx # Pregnancies Ectopic pregnancies AB induced Hx Number of Living Children AB spontaneous Vital Signs and Lab Results Lab Results Blood Type / Crossmatch: No Data to Display Complete Blood Count: No Data to Display Complete Metabolic Panel: No Data to Display Liver Function Panel: No Data to Display Coagulation Panel: No Data to Display Cardiac Panel: No Data to Display Arterial Blood Gas: No Data to Display Venous Blood Gas: No Data to Display Pancreas Panel: No Data to Display Thyroid Panel: No Data to Display Infectious Disease: Coronavirus (COVID-19)(PCR) Negative (Negative) 06/09/22 10:15 Coronavirus 2019 Source Nasal/Nares 06/09/22 10:15 Blood Cultures: No Data to Display Toxicology Panel: No Data to Display Panel: No Data to Display Imaging and Studies Imaging and Studies Study information below may be from another EMR and interpreted by another provider. Please see original notes in EMR for more complete details. Stress Test Summary: 01/11: 7.4 mets, EKG negative for ischemia. normal MPI - no ischemia or infarction. Echocardiogram Summary: 01/11: LVEF 50-54%, trace MR, mild TR. Pulmonary Function Summary: 09/2021: normal Anesthesia Assessment and Plan Anesthesia History Personal History: No History of Anesthesia Complications Family History: No Family History of Anesthesia Complications Exercise Tolerance Exercise Tolerance: Metabolic Equivalents>4 Cardiac & Pulmonary Exam Cardiac Exam: Normal S1/S2 Heart Sounds Pulmonary Exam: Clear Bilateral Breath Sounds Implantable Cardiac Device Does patient have a Pacemaker or an ICD?: No Airway Exam Known Difficult Airway: No Mallampati Class: 1 Mouth Opening: Normal (> 3cm) Thyromental Distance: Greater than 3 cm Neck Range of Motion: Full ROM Neck Circumference: Normal Teeth Condition: Normal Dentition ASA Classification ASA Score: ASA 2 Emergency Case?: No NPO Status NPO Status: NPO Clears >2 hours, Solids >8 hours Status Status: Not Relevant due to Medical History Anesthesia Plan Resuscitation Status: Full Code Anesthesia Technique: General Anesthesia Airway Planned: Endotracheal Tube Monitors Used: Standard Monitors Preoperative Comments:: 52 yo female for bronch for recurrent pneumonias. Sig PMHx: asthma, GERD (fair control with meds), spinal stenosis (occ numbness in hands and feet), smoker (half ppd), hypothyroid (on replacement), breast CA (mastectomy)
[2022-06-10] MEDS: Lactated Ringers 1,000 ML 30 ML IV (10:36)
--- NOTE | 2022-06-10 10:45 | DI.RAD_ITS ---
Exam(s) XR FLOURO OR C-ARM <1 HR EXAM: XR FLOURO OR C-ARM <1 HR CLINICAL HISTORY: abnormal chest CT. TECHNIQUE: 2D and realtime digital imaging was performed. COMPARISON: No exams were available for comparison FINDINGS: Fluoroscopy was provided for Dr. Macedo while performing bronchoscopy. Please see procedure note for details. Fluoro time 25.7 seconds RADIATION DOSE DELIVERED: Kar=1.67 mGy
--- NOTE | 2022-06-10 11:38 | BRONCH_PTH ---
PATIENT: Yasmine Matthew LOC: [facility] U#:[id number] AGE/SX: 52/F ROOM: RE06/10/[address]: Rocio Macedo MD : 1970 BED: DIS: 06/10/2022 SPEC #: [id number] RECD: 06/10/22 13:09 STATUS: NAMRATA RE #: [id number] RENE: 06/10/22 11:[address]: Rocio Macedo DEPT: Surgical Specimen RECD BY: Jolene Ram ENTERED: 06/10/22 13:12 SP TYPE: Bronch Bx OTHR DR: Kati Rubio MD, DC Tissues: 1 - BRONCHUS BIOPSY Procedures: GROSS AND MICRO LEVEL 4 Comments: [id number]
--- NOTE | 2022-06-10 11:38 | PAPNONF_PTH ---
PATIENT: Yasmine Matthew LOC: [facility] U#:[id number] AGE/SX: 52/F ROOM: RE06/10/[address]: Rocio Macedo MD : 1970 BED: DIS: 06/10/2022 SPEC #: [id number] RECD: 06/10/22 13:14 STATUS: NAMRATA REQ #: [id number] RENE: 06/10/22 11:[address]: Rocio Macedo DEPT: [facility] Cytology RECD BY: Jolene Ram ENTERED: 06/10/22 13:14 SP TYPE: FAYE SCHWARZ DR: Kati Rubio MD, DC Tissues: 1 - BODY FLUID CYTO(NOT S/U/N/EM)[facility] Procedures: BODY FLUID CYTO(NOT SPU/UR/NIP/ENDOM)[facility] Comments: [id number]
--- NOTE | 2022-06-10 12:14 | DI.RAD_ITS ---
Exam(s) XR PORTABLE CHEST AP EXAM: XR PORTABLE CHEST AP CLINICAL HISTORY: s/p RLL transbronchial biopsy TECHNIQUE: 2D digital imaging was performed. COMPARISON: CT CT CHEST LUNG CANCER SCREEN from 05/26/2022 FINDINGS: LUNGS: Apical pleural thickening on the right, otherwise clear. No pneumothorax HEART: Normal. AORTA: Normal. BONES: Unremarkable for age. Soft tissues: Unremarkable. IMPRESSION: No acute findings. DATA REPOSITORY: RADIATION DOSE DELIVERED:
--- NOTE | 2022-06-10 12:25 | W.PM.OP ---
Date of service: 06/10/22 Time of Service: 11:00 Operative Note Operative Note PRE-OP DIAGNOSIS: Abnormal chest CT POST-OP DIAGNOSIS: same PROCEDURE: Flexible bronchoscopy with RLL BAL and RLL and RUL transbronchial biopsies Refer to Anesthesia Record Procedure Description: Bronchoscopy Indication:Unspecified ILD, bibasila ground glass infiltrates Procedure performed: Flexible bronchoscopy with BAL and transbronchial biopsies of 2 lobes Sedation plan: General anesthesia Medications used: see separate anesthesia record Informed consent was obtained after the risks and benefits or the procedure were discussed. The patient was intubated by anesthesia. A proper and complete OR compliant time out was performed. The therapeutic 6.2mm Olympus bronchoscope was inserted through the endotracheal tube. The bronchoscope was inserted into the airways. The trachea was midline and without lesion or injury. The mucosa appeared normal and there were no signs of tracheomalacia. The jeremi was sharp. All bronchial subsegments were visualized within each lobe and showed scant white secretions that were easy to suction. A bronchoalveolar lavage was performed in the RLL. A total of 120cc of saline was administered with a return of 40cc. The fluid was slightly cloudy and cellular in appearance. A total of 4 transbronchial biopsies were then performed in the RLL (2 for Envisia and 2 for pathology). There was no bleeding visualized. Next, 2 transbronchial biopsies were obtained from the RUL (for Envisia). On the last biopsy there was mild bleeding that was isolated and treated with 30cc of cold saline. Observation of the airway foudn the bleeding had stopped. A final fluoro shot did not show evidence of a large pneumothorax. A final airway exam was performed and no bleeding was seen. The bronchoscope was then removed and the case terminated. The patient was taken to PACU in stable condition. Samples collected:RLL BAL, RLL and RUL transbronchial biopsies Testing ordered:cell diff, bacterial, fungal & AFB cultures, pathology and Envisia genetic testing for UIP Complications:Minor bleeding treated with cold saline Rocio Macedo MD Pulmonary & Critical Care Medicine
--- NOTE | 2022-06-10 12:26 | W.ANESPOSTOP ---
Postoperative Evaluation Date, Time and Location Date Performed: 06/10/22 Time Performed: 12:26 Patient Location: PACU Vital Signs Most Recent Imported Vital Signs: Most Recent Vital Signs Temp Pulse Resp BP Pulse Ox 36.9 C 85 19 109/64 98 06/10/22 12:20 06/10/22 12:20 06/10/22 12:20 06/10/22 12:20 06/10/22 12:20 Pain Score Most Recent Pain Score: Most Recent Pain Score Pain Level 0 06/10/22 12:20 Assessment Mental Status: Awake (Alert & Oriented to Patient Baseline) Airway and Respiratory Function: Patent airway with normal (patient baseline) respiratory exam Cardiovascular Function: Hemodynamically Stable Hydration Status: Adequately Hydrated Nausea & Vomiting: No Nausea or Vomiting Pain: Pt. Denies Any Pain Peripheral Nerve Block: Patient did not receive a nerve block
== END 2022-06-10 13:24 | disposition home or self-care (01) ==
PROVIDERS: PCP Family Medicine; Visit Provider Student in an Organized Health Care Education/Training Program
PROC: 0BJ08ZZ Inspection of Tracheobronchial Tree, Via Natural or Artificial Opening Endoscopic (ICD-10-PCS; CPT 31622; principal; 2022-06-10 11:00)
DX: R91.8 Other nonspecific abnormal finding of lung field (principal); F17.210 Nicotine dependence, cigarettes, uncomplicated; Z87.01 Personal history of pneumonia (recurrent); J98.09 Other diseases of bronchus, not elsewhere classified
CPT/HCPCS: 31628; 31632; 31624; 76000; 80162; 87102; 87116; 87206; 88305; 71045; 87070; 87205; 88104; J1100; J2405; J2704

== ENCOUNTER 2022-06-29 03:53 | Outpatient (CLI) | payer OTHER, SELFPAY ==
[2022-06-29 12:15] LABS: HGB 11.8 g/dL (11.2-15.7); MCH 31.6 pg (27.0-33.0); MCHC 33.7 % (32.0-36.0); MCV 94 fL (80-95); MPV 9.1 fL (8.0-11.0); Platelet Count 327 10^3/uL (130-400); RBC 3.73 10^6/uL (3.93-5.22); RDW 12.5 % (11.7-14.6); RDW-SD 43.2 fL; WBC 9.18 10^3/uL (4.4-10.8)
[2022-06-29 12:50] LABS: ALT 22 U/L (14-59); AST 17 U/L (15-37); Alkaline Phosphatase 82 U/L (46-116); Anion Gap 11.4 mmol/L (3-11); BUN 15 mg/dL (7-18); Bilirubin, Total 0.3 mg/dL (0.2-1.0); CO2 25.6 mmol/L (21.0-32.0); CREATININE 0.7 mg/dL (0.55-1.02); Calcium 9.1 mg/dL (8.5-10.1); Chloride 104 mmol/L (98-107); Glucose 88 mg/dL (74-106); Potassium 3.7 mmol/L (3.5-5.1); Sodium 141 mmol/L (136-145); TSH (W/Ref FT4) 0.75 uIU/mL (0.36-3.74); Total Protein 7.7 g/dL (6.4-8.2)
== END 2022-06-29 03:54 | disposition home or self-care (01) ==
LOC: LBO 03:54
PROVIDERS: PCP Family Medicine; Visit Provider Family Medicine
DX: R06.02 Shortness of breath (principal); R53.83 Other fatigue
CPT/HCPCS: 36415; 80053; 85027; 84443; 86382; 87253

== ENCOUNTER 2022-06-29 04:25 | Outpatient (CLI) | payer OTHER, SELFPAY ==
[2022-06-29] MEDS: Inhaler, Assist Device 1 EACH MC (09:07)
[2022-06-29] MEDS: Albuterol HFA 18 GM 200 PUFF INH IH (09:07)
--- NOTE | 2022-06-29 15:53 | W.PFT ---
Date of service: 06/29/22 Time of Service: 08:05 Pulmonary Function Test Result Requesting Provider Remington Indications: Recurrent pneumonia Interpretation Spirometry: There is no airflow limitation. There is no bronchodilator response. The FVC is low. Lung Volumes: Lung volumes are normal. Diffusion Capacity: The diffusion is low. Airway Pressure: Normal airways resistance. Impression Low diffusion with otherwise normal pulmonary function. Note: When compared to 10/20/21, the FEV1 and FVC are essentially unchanged. Clinical Correlation therefore is recommended.
== END 2022-06-29 04:26 | disposition home or self-care (01) ==
LOC: RT 04:27
PROVIDERS: PCP Family Medicine; Visit Provider Student in an Organized Health Care Education/Training Program
DX: J18.8 Other pneumonia, unspecified organism (principal); F17.210 Nicotine dependence, cigarettes, uncomplicated; Z86.16 Personal history of COVID-19
CPT/HCPCS: 94060; 94726; 94729

== ENCOUNTER 2022-06-29 13:25 | Outpatient (REF) | payer OTHER, SELFPAY ==
--- NOTE | 2022-06-29 11:30 | PAPFT_PTH ---
PATIENT: Yasmine Matthew LOC: [facility] U#:[id number] AGE/SX: 52/F ROOM: RE06/29/[address]: JACQUES Salcedo : 1970 BED: DIS: 06/29/2022 SPEC #: [id number] RECD: 06/29/22 16:57 STATUS: NAMRATA QUINTEROS #: [id number] RENE: 06/29/22 11:[address]: Tatyana Lee DEPT: [facility] Cytology RECD BY: Dudley Lomeli Tissues: 1 - CX/ENDOCX FOR PAP SMEARS Procedures: PAP THIN PREP/[facility] Screening HPV DNA PROBE Comments: [id number]
== END 2022-06-29 13:26 | disposition home or self-care (01) ==
LOC: LBN 13:25
PROVIDERS: PCP Family Medicine; Visit Provider Nurse Practitioner Family
DX: Z12.4 Encounter for screening for malignant neoplasm of cervix (principal); Z11.51 Encounter for screening for human papillomavirus (HPV)
CPT/HCPCS: 88142; 87624

== ENCOUNTER 2022-08-25 20:19 | Outpatient (REF) | payer OTHER, SELFPAY ==
[2022-08-25 20:34] LABS: Vitamin B12 582 pg/mL (193-986)
[2022-08-27 06:06] LABS: Vitamin D 25 Total 40.7 ng/mL (30-100)
== END 2022-08-25 20:20 | disposition home or self-care (01) ==
LOC: LBN 20:19
PROVIDERS: PCP Family Medicine; Visit Provider Student in an Organized Health Care Education/Training Program
DX: R53.83 Other fatigue (principal); F17.210 Nicotine dependence, cigarettes, uncomplicated; J84.115 Respiratory bronchiolitis interstitial lung disease
CPT/HCPCS: 82306; 82533; 82607

== ENCOUNTER 2022-09-22 03:50 | Outpatient (CLI) | payer OTHER, SELFPAY ==
[2022-09-22 08:03] LABS: Abs Immature Grans 0.03 10^3/uL (0.0-0.06); Absolute Lymphocyte Count 3.96 10^3/uL (1.2-3.4); Absolute Neutrophil Count 6.01 10^3/uL (1.2-6.7); Basophils % 0.4; Eosinophils % 3.1; HCT 34.8 % (36.0-46.0); HGB 11.6 g/dL (11.2-15.7); Immature Grans % 0.3; Lymphocytes % 35.6; MCH 30.9 pg (27.0-33.0); MCHC 33.3 % (32.0-36.0); MCV 93 fL (80-95); MPV 9.2 fL (8.0-11.0); Monocytes % 6.6; Platelet Count 332 10^3/uL (130-400); RBC 3.75 10^6/uL (3.93-5.22); RDW 12.3 % (11.7-14.6); RDW-SD 42.2 fL; WBC 11.13 10^3/uL (4.4-10.8)
[2022-09-22 08:05] LABS: Absolute Basophil Count 0.04 10^3/uL (0.0-0.2); Absolute Eosinophil Count 0.35 10^3/uL (0.0-0.7); Absolute Monocyte Count 0.73 10^3/uL (0.1-0.8)
[2022-09-22 08:39] LABS: ALT 19 U/L (14-59); AST 16 U/L (15-37); Albumin 3.8 g/dL (3.4-5.0); Alkaline Phosphatase 82 U/L (46-116); BUN 15 mg/dL (7-18); Bilirubin, Total 0.3 mg/dL (0.2-1.0); CREATININE 0.7 mg/dL (0.55-1.02); Chloride 107 mmol/L (98-107); Estimated GFR 102.71 (mL/min/1.73m2); Glucose 88 mg/dL (74-106); Potassium 3.8 mmol/L (3.5-5.1); Sodium 143 mmol/L (136-145); Total Protein 7.1 g/dL (6.4-8.2)
== END 2022-09-22 03:51 | disposition home or self-care (01) ==
PROVIDERS: PCP Family Medicine; Visit Provider Nurse Practitioner Adult Health
DX: Z85.3 Personal history of malignant neoplasm of breast (principal)
CPT/HCPCS: 36415; 80053; 85025

== ENCOUNTER 2023-02-10 03:28 | Outpatient (CLI) | payer OTHER, SELFPAY ==
[2023-02-10 09:21] LABS: Abs Immature Grans 0.06 10^3/uL (0.0-0.06); Absolute Basophil Count 0.06 10^3/uL (0.0-0.2); Absolute Eosinophil Count 0.25 10^3/uL (0.0-0.7); Absolute Lymphocyte Count 3.85 10^3/uL (1.2-3.4); Absolute Monocyte Count 0.87 10^3/uL (0.1-0.8); Absolute Neutrophil Count 6.84 10^3/uL (1.2-6.7); Basophils % 0.5; Eosinophils % 2.1; HCT 36.8 % (36.0-46.0); HGB 12.8 g/dL (11.2-15.7); Immature Grans % 0.5; Lymphocytes % 32.3; MCH 31.1 pg (27.0-33.0); MCHC 34.8 % (32.0-36.0); MCV 89 fL (80-95); MPV 8.7 fL (8.0-11.0); Monocytes % 7.3; Neutrophils % 57.3; Platelet Count 364 10^3/uL (130-400); RBC 4.12 10^6/uL (3.93-5.22); RDW-SD 39.7 fL; WBC 11.93 10^3/uL (4.4-10.8)
[2023-02-10 18:04] LABS: Rheumatoid Factor <8.6 IU/mL (<12.0)
[2023-02-11 10:14] LABS: Cyclic Citrullinated Peptide <2.5 U/mL (<5.0)
[2023-02-11 15:54] LABS: ANA Interpretation Negative (Negative)
== END 2023-02-10 03:29 | disposition home or self-care (01) ==
LOC: LBO 03:28
PROVIDERS: PCP Family Medicine; Visit Provider Family Medicine
DX: M25.50 Pain in unspecified joint (principal)
CPT/HCPCS: 36415; 86200; 85025; 86038; 86431

== ENCOUNTER 2023-03-22 04:58 | Outpatient (CLI) | payer OTHER, SELFPAY ==
[2023-03-22 08:02] LABS: Abs Immature Grans 0.03 10^3/uL (0.0-0.06); Absolute Basophil Count 0.06 10^3/uL (0.0-0.2); Absolute Eosinophil Count 0.25 10^3/uL (0.0-0.7); Absolute Lymphocyte Count 4.16 10^3/uL (1.2-3.4); Absolute Monocyte Count 0.81 10^3/uL (0.1-0.8); Absolute Neutrophil Count 4.61 10^3/uL (1.2-6.7); Basophils % 0.6; Eosinophils % 2.5; HGB 13.1 g/dL (11.2-15.7); Immature Grans % 0.3; Lymphocytes % 41.9; MCH 31.1 pg (27.0-33.0); MCHC 34.5 % (32.0-36.0); MCV 90 fL (80-95); MPV 9.3 fL (8.0-11.0); Monocytes % 8.2; Neutrophils % 46.5; Platelet Count 358 10^3/uL (130-400); RBC 4.21 10^6/uL (3.93-5.22); RDW 12.5 % (11.7-14.6); RDW-SD 41.1 fL; WBC 9.92 10^3/uL (4.4-10.8)
[2023-03-23 09:55] LABS: IgA 163 mg/dL (85-499); IgG 712 mg/dL (610-1616); IgM 50 mg/dL (35-242); Kappa Free Light Chain 0.99 mg/dL (0.33-1.94)
[2023-03-23 14:04] LABS: Leukemia/Lymphoma by FC (Blood (See below)
[2023-03-23 15:14] LABS: Albumin 63.5 % (55.8-66.1); Albumin g/dL 4.6 g/dL (3.6-5.2); Comment (See Note); Monoclonal Spike g/dL 0.4 g/dL (None Seen); Total Protein 7.2 g/dL (6.3-8.2)
[2023-03-23 15:33] LABS: Immunotyping, Serum (See Note)
== END 2023-03-22 04:59 | disposition home or self-care (01) ==
PROVIDERS: PCP Family Medicine; Visit Provider Internal Medicine Hematology & Oncology
DX: D72.820 Lymphocytosis (symptomatic) (principal)
CPT/HCPCS: 36415; 82784; 88185; 83883; 84165; 85025; 86320; 88184; 88189

== ENCOUNTER 2023-04-29 15:20 | Outpatient (CLI) | payer OTHER, SELFPAY ==
[2023-04-29 16:57] LABS: Abs Immature Grans 0.02 10^3/uL (0.0-0.06); Absolute Basophil Count 0.05 10^3/uL (0.0-0.2); Absolute Lymphocyte Count 4.92 10^3/uL (1.2-3.4); Absolute Monocyte Count 0.81 10^3/uL (0.1-0.8); Absolute Neutrophil Count 4.41 10^3/uL (1.2-6.7); Basophils % 0.5; Eosinophils % 2.9; HCT 36.1 % (36.0-46.0); HGB 12.2 g/dL (11.2-15.7); Immature Grans % 0.2; Lymphocytes % 46.8; MCH 30.6 pg (27.0-33.0); MCHC 33.8 % (32.0-36.0); MCV 91 fL (80-95); MPV 9.5 fL (8.0-11.0); Monocytes % 7.7; Neutrophils % 41.9; Platelet Count 370 10^3/uL (130-400); RBC 3.99 10^6/uL (3.93-5.22); RDW 12.7 % (11.7-14.6); RDW-SD 42.5 fL; WBC 10.51 10^3/uL (4.4-10.8)
[2023-04-29 18:32] LABS: ALT 17 U/L (14-59); AST 9 U/L (15-37); Albumin 3.8 g/dL (3.4-5.0); Alkaline Phosphatase 131 U/L (46-116); Anion Gap 8.6 mmol/L (3-11); BUN 16 mg/dL (7-18); Bilirubin, Total 0.2 mg/dL (0.2-1.0); CO2 26.4 mmol/L (21.0-32.0); CREATININE 0.6 mg/dL (0.55-1.02); Calcium 9.7 mg/dL (8.5-10.1); Chloride 106 mmol/L (98-107); Glucose 120 mg/dL (74-106); Potassium 4.2 mmol/L (3.5-5.1); Sodium 141 mmol/L (136-145); Total Protein 7.5 g/dL (6.4-8.2)
== END 2023-04-29 15:21 | disposition home or self-care (01) ==
LOC: LBO 15:23
PROVIDERS: Nurse Practitioner Adult Health; PCP Family Medicine; Visit Provider Family Medicine
DX: C50.911 Malignant neoplasm of unspecified site of right female breast (principal); Z17.0 Estrogen receptor positive status [ER+]
CPT/HCPCS: 36415; 80053; 85025

== ENCOUNTER 2023-05-28 08:40 | Emergency (ER) | payer OTHER, SELFPAY ==
[2023-05-28 08:43] VITALS: BP 142/98; PULSE 100; RESP 16; TEMP 37.1; O2SAT 100
--- NOTE | 2023-05-28 08:52 | W.ED.GENAD ---
Discharge Plan Disposition Patient Disposition: Home Condition: Stable Discharge Details Clinical Impression: Acute diverticulitis Primary Care Provider: Kati Rubio ED Provider: Sanya Jamil Home Meds and New Rx's Prescriptions: New amoxicillin-pot clavulanate 875-125 mg tablet 1 tab PO TID Qty: 29 0RF Continued ropinirole 1 mg tablet 0.5 mg PO QHS Patient Comments: does not take Rx Instructions: administer 1-3 hours before bedtime albuterol sulfate [Proventil HFA] 90 mcg/actuation HFA aerosol inhaler 2 puff inhalation Q6H PRN (Reason: shortness of breath or wheezing) Qty: 8.5 0RF multivitamin [Multi-Day] 1 EACH tablet 1 ea PO DAILY omeprazole magnesium [Prilosec OTC] 20 mg tablet,delayed release (DR/EC) 20 mg PO DAILY Qty: 90 3RF levothyroxine 50 mcg tablet 50 mcg PO DAILY Qty: 90 12RF amlodipine 5 mg tablet 5 mg PO DAILY Qty: 90 6RF loratadine 10 mg Tablet 10 mg PO DAILY acetaminophen 650 mg Tablet Extended Release 1,300 mg PO BID ibuprofen [Advil] 200 mg Tablet 400 mg PO BID clobetasol [Temovate] 0.05 % ointment 1 applic topical BID PRN varenicline 0.5 mg Tablet 0.5 mg PO DAILY Rx Instructions: administer on days 1, 2, and 3 of therapy levocetirizine [Xyzal] 5 mg Tablet 5 mg PO DAILY Discharge Instructions Instructions: Diverticulitis (ED) Additional Instructions: Please take full course of antibiotics as prescribed. Maintain a clear liquid diet today. Advance to bland diet tomorrow. Advance diet daily thereafter as tolerated. Please contact your primary care physician to arrange follow-up. Return to the ER immediately for any worsening or new concerning symptoms. Referrals: Kati Rubio MD, [place] [Primary Care Provider] - Medical Decision Making 923?-53-year-old female with history of diverticulitis, lymphocytosis, OUMAR type II, prior breast cancer treated remotely with chemoradiation, here with crampy pressure in her lower abdomen with now more focal discomfort in her right lower quadrant and rectum. Patient has had fever and nausea. Patient is tender in her right lower abdomen. No peritoneal findings. Patient is tachycardic. Plan to obtain CT of the abdomen pelvis to assess for acute surgical pathology. 1212 --CT of the abdomen pelvis interpreted by radiology:Diverticulosis.? Mild stranding around the sigmoid colon could indicate mild diverticulitis. Given degree of pain, discussed treatment options and patient provided informed consent to initiate treatment with augmentin. Lab Data Lab results reviewed: Yes I reviewed the patient's lab results. Lab results narrative: Laboratory Tests Range/Units 05/28/23 05/28/23 09:30 09:30 WBC (4.4-10.8) 10^3/uL 11.30 H RBC (3.93-5.22) 10^6/uL 4.03 Hgb (11.2-15.7) g/dL 12.2 Hct (36.0-46.0) % 35.9 L MCV (80-95) fL 89 MCH (27.0-33.0) pg 30.3 MCHC (32.0-36.0) % 34.0 RDW (11.7-14.6) % 12.6 Plt Count (130-400) 10^3/uL 359 MPV (8.0-11.0) fL 9.0 Immature Gran % 0.4 Neutrophils % 55.7 Lymphocytes % 33.8 Monocytes % 8.2 Eosinophils % 1.5 Basophils % 0.4 Nucleated RBC % (0.0-0.3) % 0.0 Absolute Neutrophils (1.2-6.7) 10^3/uL 6.29 Absolute Lymphocytes (1.2-3.4) 10^3/uL 3.82 H Absolute Monocytes (0.1-0.8) 10^3/uL 0.93 H Absolute Eosinophils (0.0-0.7) 10^3/uL 0.17 Absolute Basophils (0.0-0.2) 10^3/uL 0.05 Sodium (136-145) mmol/L 143 Potassium (3.5-5.1) mmol/L 4.0 Chloride (98-107) mmol/L 107 Carbon Dioxide (21.0-32.0) mmol/L 25.5 Anion Gap (3-11) mmol/L 10.5 BUN (7-18) mg/dL 11 Creatinine (0.55-1.02) mg/dL 0.7 Est GFR (CKD-EPI 2020) (mL/min/1.73m2) 102.07 Glucose (74-106) mg/dL 104 Calcium (8.5-10.1) mg/dL 9.5 Total Bilirubin (0.2-1.0) mg/dL 0.6 AST (15-37) U/L 18 ALT (14-59) U/L 29 Alkaline Phosphatase (46-116) U/L 130 H Total Protein (6.4-8.2) g/dL 7.6 Albumin (3.4-5.0) g/dL 3.8 Lipase (16-77) U/L 45 HPI General Mode of arrival: ambulatory. Date/Time Provider Initiated Documentation: 05/28/23 08:43. Limitations to Documentation: no limitations. Information obtained by: patient. HPI Narrative: 53-year-old female with history of diverticulitis, OUMAR type II, remote breast cancer treated with chemoradiation, lymphocytosis, here with chief complaint of abdominal discomfort. Patient notes abdominal cramping and pressure in her lower abdomen over the past 3 days. Symptoms are mild to moderate. She has associated nausea. No vomiting. She has had associated fever. Patient denies vaginal bleeding. No rectal bleeding. Normal colonoscopy last year. Related Data Home Medications Medication Instructions Recorded Confirmed multivitamin (Multi-Day tablet) 1 ea PO DAILY 06/22/13 05/28/23 ropinirole 1 mg tablet 0.5 mg PO QHS 04/22/21 03/15/23 albuterol sulfate 90 mcg/actuation 2 puff inhalation Q6H PRN 09/29/21 05/28/23 aerosol inhaler (Proventil HFA) shortness of breath or wheezing #8.5 grams loratadine 10 mg tablet 10 mg PO DAILY 06/09/22 05/28/23 acetaminophen 650 mg 1,300 mg PO BID 06/10/22 05/28/23 tablet,extended release omeprazole magnesium 20 mg 20 mg PO DAILY #90 tab-caps 06/19/22 05/28/23 tablet,delayed release (Prilosec OTC) levothyroxine 50 mcg tablet 50 mcg PO DAILY #90 tab-caps 10/22/22 05/28/23 amlodipine 5 mg tablet 5 mg PO DAILY #90 tabs 11/02/22 05/28/23 amoxicillin 875 mg-potassium 1 tab PO TID #29 tabs 05/28/23 clavulanate 125 mg tablet clobetasol 0.05 % topical ointment 1 applic topical BID PRN 05/28/23 05/28/23 (Temovate) ibuprofen 200 mg tablet (Advil) 400 mg PO BID 05/28/23 05/28/23 levocetirizine 5 mg tablet (Xyzal) 5 mg PO DAILY 05/28/23 05/28/23 varenicline 0.5 mg tablet 0.5 mg PO DAILY 05/28/23 05/28/23 Previous Rx's Medication Instructions Recorded albuterol sulfate 90 mcg/actuation 2 puff inhalation Q6H PRN 09/29/21 aerosol inhaler (Proventil HFA) shortness of breath or wheezing #8.5 grams omeprazole magnesium 20 mg 20 mg PO DAILY #90 tab-caps 06/19/22 tablet,delayed release (Prilosec OTC) levothyroxine 50 mcg tablet 50 mcg PO DAILY #90 tab-caps 10/22/22 amlodipine 5 mg tablet 5 mg PO DAILY #90 tabs 11/02/22 amoxicillin 875 mg-potassium 1 tab PO TID #29 tabs 05/28/23 clavulanate 125 mg tablet Allergies Allergy/AdvReac Type Severity Reaction Status Date / Time fluconazole Allergy Intermediate TONGUE AND Verified 05/28/23 08:47 LIPS SWELLING latex Allergy RASH Verified 05/28/23 08:47 adhesive AdvReac Intermediate RASH Verified 05/28/23 08:47 venlafaxine HCl AdvReac NAUSEA Verified 05/28/23 08:47 [From Effexor] General Stated Complaint: Abd Prob LELE: 3 Review of Systems All systems reviewed & are unremarkable except as noted in HPI and below Gastrointestinal Gastrointestinal: Reports as per HPI and Reports abdominal pain PFSH All Active Problems (Updated 05/28/23 @ 12:21 by Sanya Jamil MD) Acute diverticulitis (Acute) Persistent lymphocytosis (Acute) Arthralgia (Acute) Cervical pain (Acute) Recurrent sinus infections (Acute) Fatigue (Acute) 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) Fatigue (Acute) High cholesterol (Chronic) GERD (gastroesophageal reflux disease) (Chronic) IC (interstitial cystitis) (Chronic) Liver lesion (Chronic) Malignant neoplasm of right breast, stage 3 (Chronic) 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) Spinal stenosis of lumbar region (Chronic 02/02/17) Stress incontinence of urine (Chronic 12/06/17) Tubular adenoma (Chronic) Hypothyroidism (Chronic) OUMAR II (vulvar intraepithelial neoplasia II) (Acute) Paresthesia of left foot (Acute) Cubital tunnel syndrome of both upper extremities (Acute) Carpal tunnel syndrome on both sides (Acute) Peripheral neuropathy (Acute) Spinal stenosis of lumbar region with radiculopathy (Acute) Encounter for annual physical exam (Acute) Medical History Abnormal chest CT Abnormal chest CT Abnormal Pap smear of cervix Abnormal thyroid blood test (07/08/17) Arthritis of hand Asthma BRCA negative Chronic back pain Chronic nasal congestion Constipation Cough Diverticulitis Dizziness (07/05/17) Encounter for screening for COVID-19 Fatigue Gastrointestinal problem History of ectopic Low immunoglobulin level Malaise and fatigue Nicotine dependence, cigarettes, uncomplicated Pain of right fibula (08/02/17) Palliative care patient Pigmented skin lesion Recurrent pneumonia Shortness of breath Sinusitis Stress at home Thickened endometrium Ulnar neuropathy Vulvar irritation Surgical History Breast, Lumpectomy (~2000) right Cholecystectomy Diagnostic Laproscopy (~2004) for pain Hemorrhoidectomy History of endometrial biopsy (~07/20/19) 07/20/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 Brother No problems noted. Son No problems noted. Son No problems noted. Son No problems noted. Daughter Essential hypertension Substance abuse Maternal Grandfather No problems noted. Paternal Grandfather , age 60ish No problems noted. Maternal Grandmother , age 60s No problems noted. Paternal Grandmother , age 70ish No problems noted. Social History Smoking/Tobacco Use Status: Current every day Tobacco Type: cigarettes Tobacco: How many years used: 30 Quit status: considering quitting Second Hand Exposure: Yes Smoking risk assessment performed?: Yes Alcohol Intake: current Alcohol Intake frequency: 0-2 drinks per day Alcohol type: beer and wine Drug use: Never Substance use type: does not use Caregiver/Support person: No Household members: spouse and children Housing: house Number of Children: 4 Communication Needs: None Do you need help understanding health information?: Never current occupation: manager relationship Pets and animals: Yes Pets and animals: cat(s) and dog(s) Sexually active: No Do you think of yourself as: straight/heterosexual Current gender identity: female What is your relationship status?: How often do you talk on the phone with friends or family?: three or more times per week How often do you get together with friends or relatives?: once per week How often do you attend hoahaoism or scientologist services?: 1-3 times per year Do you belong to any clubs or organized social groups?: no Panel score (0-1 are the most socially isolated patients): 2 What type of physical activity do you participate in: walking Duration: 15-30 minutes/day Frequency: 3-4 times per week Lizy/Rastafarian: No preference Special lizy needs: No Seatbelt use: always Helmet use: Yes Helmet use: always Drive intox or ride w/intox recycler forklift driver truck driver: No Do you feel safe at home: Yes Do you feel safe in your relationship?: Yes History History 7 Para 4 Hx # Term Pregnancies Multiple births Hx # Pregnancies Ectopic pregnancies AB induced Hx Number of Living Children AB spontaneous Exam Const General: cooperative and no acute distress HENMT Mouth: moist mucous membranes Eyes Conjunctivae: normal conjunctivae Sclera: normal sclerae Resp Auscultation: clear to auscultation bilaterally, no rales, no rhonchi and no wheezes Cardio Jugular venous pressure: no JVD Rate: regular rate and not tachycardic Rhythm: regular rhythm GI Palpation: soft, not firm, no guarding, no masses, not rigid and tender in the RLQ Auscultation: hyperactive bowel sounds Skin General skin exam: no rashes or lesions noted Neuro General: patient alert, patient awake and tone normal Extrem General: no edema Course Vital Signs Vital signs: Vital Signs Temperature 37.1 C 05/28/23 08:43 Pulse 100 H 05/28/23 08:43 Respiratory Rate 16 05/28/23 08:43 Blood Pressure 142/98 H 05/28/23 08:43 Pulse Oximetry 100 05/28/23 08:43 Temperature 37.1 C 05/28/23 08:43 Temperature Source Skin 05/28/23 08:43 Pulse 100 H 05/28/23 08:43 Respiratory Rate 16 05/28/23 08:43 Blood Pressure 142/98 H 05/28/23 08:43 Blood Pressure Position Sitting 05/28/23 08:43 Pulse Oximetry 100 05/28/23 08:43 Oxygen Delivery Method Room Air 05/28/23 08:43 Oxygen Flow Rate 0 05/28/23 08:43 Pain Level 3 05/28/23 08:43
--- NOTE | 2023-05-28 09:14 | DI.CT_ITS ---
Exam(s) CT ABDOMEN PELVIS W EXAM: CT ABDOMEN PELVIS W CLINICAL HISTORY: pain, ttp rlq. TECHNIQUE: Imaging Protocol: Axial computed tomography images with coronal and sagittal reformatted images were created and reviewed CONTRAST MATERIAL: Intravenous: Omnipaque 350 Contrast volume:100 ml Oral: yes / COMPARISON: CT ABD PELVIS WITH CONTRAST from 03/10/2016 FINDINGS: ABDOMEN: Lung Bases: Normal where visualized. Liver: Normal density. No measurable mass. Gallbladder and biliary tract: Status post cholecystectomy. Stable mild dilatation of the common carlos e duct. Pancreas: Normal density, no abnormal calcifications or inflammatory process. Spleen: Normal. Kidneys: Normal size, contour and axis. No radiodense stones or obstructive uropathy. No suspicious m asses seen. Adrenal glands: No masses seen. Abdominal Aorta: Abdominal portion non-dilated. Soft tissues: Unremarkable. PELVIS: Bladder: No gross wall thickening. No calculi.No focal mass. Bowel: Diverticulosis descending and sigmoid colon. Mild stranding in the fat around the sigmoid cou ld indicate mild diverticulitis. No free fluid or abscess.. No obstruction. No bowel wall thicken ing. Appendix normal. Peritoneal cavity: No ascites or focal, collection. Bones: Unremarkable for age. Reproductive organs: Within normal limits. Lymph nodes: Unremarkable. Impression: Diverticulosis. Mild stranding around the sigmoid colon could indicate mild diverticulitis. Findings called to Dr. Sanya Jamil of the emergency department. RADIATION DOSE DELIVERED: 725.9mGy.cm Total DLP DATA REPOSITORY: All CT scans at this facility are submitted to the National Radiology Data Registry (NRDR) Dose Index Registry (DIR) with the [employer] (ACR). RADIATION OPTIMIZATION: All CT scans at this facility use at least one of these dose optimization te chniques: automated exposure control; mA and/or kV adjustment per patient size (includes targeted exa ms where dose is matched to clinical indication); or iterative reconstruction.
[2023-05-28] MEDS: Omnipaque 350 MG/ML 50 ML BTL PO (09:33)
[2023-05-28] MEDS: Breeza Beverage 473 ML BTL 946 ML PO (09:34)
[2023-05-28 09:37] LABS: Abs Immature Grans 0.04 10^3/uL (0.0-0.06); Absolute Basophil Count 0.05 10^3/uL (0.0-0.2); Absolute Eosinophil Count 0.17 10^3/uL (0.0-0.7); Absolute Lymphocyte Count 3.82 10^3/uL (1.2-3.4); Absolute Monocyte Count 0.93 10^3/uL (0.1-0.8); Absolute Neutrophil Count 6.29 10^3/uL (1.2-6.7); Basophils % 0.4; Eosinophils % 1.5; HCT 35.9 % (36.0-46.0); HGB 12.2 g/dL (11.2-15.7); Immature Grans % 0.4; Lymphocytes % 33.8; MCH 30.3 pg (27.0-33.0); MCV 89 fL (80-95); Monocytes % 8.2; Neutrophils % 55.7; Platelet Count 359 10^3/uL (130-400); RBC 4.03 10^6/uL (3.93-5.22); RDW 12.6 % (11.7-14.6); RDW-SD 41.3 fL
[2023-05-28] MEDS: Ondansetron 4 MG/2 ML VIAL IVP (09:39)
[2023-05-28 09:51] LABS: ALT 29 U/L (14-59); AST 18 U/L (15-37); Albumin 3.8 g/dL (3.4-5.0); Alkaline Phosphatase 130 U/L (46-116); Anion Gap 10.5 mmol/L (3-11); BUN 11 mg/dL (7-18); Bilirubin, Total 0.6 mg/dL (0.2-1.0); CO2 25.5 mmol/L (21.0-32.0); CREATININE 0.7 mg/dL (0.55-1.02); Calcium 9.5 mg/dL (8.5-10.1); Chloride 107 mmol/L (98-107); Estimated GFR 102.07 (mL/min/1.73m2); Glucose 104 mg/dL (74-106); Lipase 45 U/L (16-77); Sodium 143 mmol/L (136-145); Total Protein 7.6 g/dL (6.4-8.2)
--- NOTE | 2023-05-28 11:12 | NUR.NOTE ---
Nursing Note: Report obtained from RN regarding PT at approx 1025
[2023-05-28] MEDS: Omnipaque 350 MG/ML 100 ML BTL IV ×2 (11:25→11:40)
[2023-05-28] MEDS: Normal Saline - Diluent 50 ML VIAL IJ (11:26)
[2023-05-28] MEDS: Amoxicillin 875/Clav. 125 TAB PO (12:41)
[2023-05-28 12:44] VITALS: BP 129/78; PULSE 87; RESP 18; TEMP 36.8; O2SAT 99
== END 2023-05-28 12:51 | disposition home or self-care (01) ==
PROVIDERS: Emergency Provider Student in an Organized Health Care Education/Training Program; PCP Family Medicine
DX: K57.92 Diverticulitis of intestine, part unspecified, without perforation or abscess without bleeding (principal)
CPT/HCPCS: 80053; 83690; 96374; 99285; 74177; 85025; 99284; J2405; J3490; Q9967

== ENCOUNTER 2023-06-16 03:38 | Outpatient (CLI) | payer OTHER, SELFPAY ==
[2023-06-16 12:42] LABS: Abs Immature Grans 0.04 10^3/uL (0.0-0.06); Absolute Basophil Count 0.06 10^3/uL (0.0-0.2); Absolute Eosinophil Count 0.13 10^3/uL (0.0-0.7); Absolute Monocyte Count 0.82 10^3/uL (0.1-0.8); Basophils % 0.5; Eosinophils % 1.1; HCT 37.2 % (36.0-46.0); HGB 12.8 g/dL (11.2-15.7); Immature Grans % 0.3; Lymphocytes % 43.1; MCH 30.6 pg (27.0-33.0); MCHC 34.4 % (32.0-36.0); MCV 89 fL (80-95); MPV 8.9 fL (8.0-11.0); Monocytes % 7.2; Neutrophils % 47.8; Platelet Count 363 10^3/uL (130-400); RBC 4.18 10^6/uL (3.93-5.22); RDW 12.4 % (11.7-14.6); RDW-SD 40.5 fL; WBC 11.45 10^3/uL (4.4-10.8)
[2023-06-16 12:43] LABS: Absolute Lymphocyte Count 4.93 10^3/uL (1.2-3.4); Absolute Neutrophil Count 5.47 10^3/uL (1.2-6.7)
[2023-06-16 12:56] LABS: ALT 23 U/L (14-59); AST 18 U/L (15-37); Alkaline Phosphatase 147 U/L (46-116); Anion Gap 10.5 mmol/L (3-11); BUN 11 mg/dL (7-18); Bilirubin, Total 0.3 mg/dL (0.2-1.0); CO2 25.5 mmol/L (21.0-32.0); CREATININE 0.8 mg/dL (0.55-1.02); Calcium 9.2 mg/dL (8.5-10.1); Chloride 105 mmol/L (98-107); Estimated GFR 86.96 (mL/min/1.73m2); Glucose 107 mg/dL (74-106); LDH 160 U/L (81-234); Potassium 3.7 mmol/L (3.5-5.1); Sodium 141 mmol/L (136-145); Total Protein 7.7 g/dL (6.4-8.2)
[2023-06-17 09:00] LABS: IgA 223 mg/dL (85-499); IgG 779 mg/dL (610-1616); IgM 58 mg/dL (35-242); Kappa Free Light Chain 1.06 mg/dL (0.33-1.94); Lambda Free Light Chain 1.26 mg/dL (0.57-2.63)
[2023-06-17 13:47] LABS: Albumin 61.3 % (55.8-66.1); Albumin g/dL 4.7 g/dL (3.6-5.2); Comment (See Note); Monoclonal Spike g/dL 0.4 g/dL (None Seen); Total Protein 7.6 g/dL (6.3-8.2)
== END 2023-06-16 03:39 | disposition home or self-care (01) ==
PROVIDERS: PCP Family Medicine; Visit Provider Internal Medicine Hematology & Oncology
DX: D47.2 Monoclonal gammopathy (principal)
CPT/HCPCS: 36415; 80053; 82784; 83615; 83883; 84165; 85025

== ENCOUNTER 2023-08-10 15:34 | Outpatient (CLI) | payer OTHER, SELFPAY ==
--- NOTE | 2023-08-10 15:30 | RT.EKG_ITS ---
APPROVED REPORT Exam: Resting ECG Reason for Exam: chest discomfort Patient Location: O HR:92 bpm ECG Measurements Heart Rate 92 AXIS IN 123 P 21 QRSd 88 QRS 15 QT 368 T 24 QTc 456 Conclusion Sinus rhythm...normal P axis, V-rate 50- 99 Consider left ventricular hypertrophy...(R aVL+S V3) >2.20mV Otherwise normal ECG
== END 2023-08-10 15:35 | disposition home or self-care (01) ==
LOC: DI.CM 15:35
PROVIDERS: PCP Family Medicine; Visit Provider Nurse Practitioner Family
DX: R07.89 Other chest pain (principal)
CPT/HCPCS: 93010

== ENCOUNTER 2023-08-10 20:59 | Outpatient (REF) | payer OTHER, SELFPAY ==
[2023-08-10 20:53] LABS: Abs Immature Grans 0.05 10^3/uL (0.0-0.06); Absolute Basophil Count 0.05 10^3/uL (0.0-0.2); Absolute Lymphocyte Count 4.01 10^3/uL (1.2-3.4); Absolute Monocyte Count 0.56 10^3/uL (0.1-0.8); Absolute Neutrophil Count 5.79 10^3/uL (1.2-6.7); Basophils % 0.5; Eosinophils % 1.9; HGB 13.1 g/dL (11.2-15.7); Immature Grans % 0.5; Lymphocytes % 37.6; MCH 30.8 pg (27.0-33.0); MCHC 34.5 % (32.0-36.0); MCV 89 fL (80-95); MPV 9.5 fL (8.0-11.0); Monocytes % 5.3; Neutrophils % 54.2; Platelet Count 405 10^3/uL (130-400); RBC 4.26 10^6/uL (3.93-5.22); RDW 12.8 % (11.7-14.6); RDW-SD 41.9 fL; WBC 10.66 10^3/uL (4.4-10.8)
[2023-08-12 10:24] LABS: Lyme Ab w Rflx to Lyme Confirm Negative (Negative)
[2023-08-13 16:52] LABS: Anaplasma phagocytophilum Negative (Negative); B. miyamotoi PCR Negative (Negative); Babesia divergens/MO-1 Negative (Negative); Babesia duncani Negative (Negative); Babesia microti Negative (Negative); Ehrlichia chaffeensis Negative (Negative); Ehrlichia ewingii/canis Negative (Negative); Ehrlichia muris eauclairensis Negative (Negative)
== END 2023-08-10 21:00 | disposition home or self-care (01) ==
LOC: LBN 20:59
PROVIDERS: PCP Family Medicine; Visit Provider Nurse Practitioner Family
DX: R50.9 Fever, unspecified (principal); W57.XXXA Bitten or stung by nonvenomous insect and other nonvenomous arthropods, initial encounter; R53.81 Other malaise; M25.59 Pain in other specified joint
CPT/HCPCS: 87798; 85025; 86618

== ENCOUNTER 2023-09-09 04:46 | Outpatient (CLI) | payer OTHER, SELFPAY ==
[2023-09-09 14:04] LABS: TSH (W/Ref FT4) 1.03 uIU/mL (0.36-3.74)
== END 2023-09-09 04:47 | disposition home or self-care (01) ==
PROVIDERS: PCP Family Medicine; Visit Provider Family Medicine
DX: Z00.00 Encounter for general adult medical examination without abnormal findings (principal)
CPT/HCPCS: 36415; 84443

== ENCOUNTER 2023-09-20 19:42 | Outpatient (REF) | payer OTHER, SELFPAY ==
[2023-09-20 21:18] LABS: Bilirubin Negative (Negative); Blood Negative (Negative); Clarity Clear (Clear); Glucose Negative (Negative); Ketones Negative (Negative); Leukocyte Esterase Negative (Negative); Nitrite Negative (Negative); Urobilinogen 0.2 mg/dL (Up to 0.2)
== END 2023-09-20 19:43 | disposition home or self-care (01) ==
LOC: LBN 19:42
PROVIDERS: PCP Family Medicine; Visit Provider Nurse Practitioner Family
DX: R39.9 Unspecified symptoms and signs involving the genitourinary system (principal)
CPT/HCPCS: 81003

== ENCOUNTER 2023-09-21 08:36 | Outpatient (CLI) | payer OTHER, SELFPAY ==
[2023-09-21 08:47] LABS: Abs Immature Grans 0.06 10^3/uL (0.0-0.06); Absolute Basophil Count 0.07 10^3/uL (0.0-0.2); Absolute Lymphocyte Count 3.58 10^3/uL (1.2-3.4); Absolute Monocyte Count 0.96 10^3/uL (0.1-0.8); Absolute Neutrophil Count 8.27 10^3/uL (1.2-6.7); Basophils % 0.5; HCT 36.9 % (36.0-46.0); HGB 12.4 g/dL (11.2-15.7); Immature Grans % 0.5; Lymphocytes % 27.1; MCH 29.9 pg (27.0-33.0); MCHC 33.6 % (32.0-36.0); MCV 89 fL (80-95); MPV 9.8 fL (8.0-11.0); Monocytes % 7.3; Neutrophils % 62.6; Platelet Count 344 10^3/uL (130-400); RBC 4.15 10^6/uL (3.93-5.22); RDW 12.7 % (11.7-14.6); RDW-SD 41.4 fL; WBC 13.21 10^3/uL (4.4-10.8)
[2023-09-21 08:49] LABS: Absolute Eosinophil Count 0.26 10^3/uL (0.0-0.7)
[2023-09-21 09:21] LABS: ALT 23 U/L (14-59); AST 16 U/L (15-37); Albumin 3.9 g/dL (3.4-5.0); Alkaline Phosphatase 140 U/L (46-116); BUN 9 mg/dL (7-18); Bilirubin, Total 0.7 mg/dL (0.2-1.0); CREATININE 0.7 mg/dL (0.55-1.02); Chloride 106 mmol/L (98-107); Estimated GFR 102.07 (mL/min/1.73m2); Glucose 112 mg/dL (74-106); Potassium 3.7 mmol/L (3.5-5.1); Sodium 142 mmol/L (136-145); Total Protein 7.6 g/dL (6.4-8.2)
[2023-09-21 09:22] LABS: LDH 159 U/L (81-234)
[2023-09-22 09:33] LABS: IgA 204 mg/dL (85-499); IgG 725 mg/dL (610-1616); IgM 45 mg/dL (35-242); Kappa Free Light Chain 1.12 mg/dL (0.33-1.94); Lambda Free Light Chain 1.25 mg/dL (0.57-2.63)
[2023-09-22 13:24] LABS: Albumin 59.8 % (55.8-66.1); Albumin g/dL 4.2 g/dL (3.6-5.2); Monoclonal Spike 4.6 % (None Seen); Monoclonal Spike g/dL 0.3 g/dL (None Seen); Total Protein 7.1 g/dL (6.3-8.2)
[2023-09-22 13:43] LABS: Comment (See Note)
== END 2023-09-21 08:37 | disposition home or self-care (01) ==
LOC: LBO 08:37
PROVIDERS: Nurse Practitioner Family; PCP Family Medicine; Visit Provider Internal Medicine Hematology & Oncology
DX: R10.9 Unspecified abdominal pain (principal)
CPT/HCPCS: 36415; 80053; 82784; 83615; 83883; 84165; 85025

== ENCOUNTER 2023-11-04 01:53 | Outpatient (CLI) | payer OTHER, SELFPAY ==
[2023-11-05 12:54] LABS: IgA 181 mg/dL (85-499); Interpretation (See Note); Tissue Transglutaminase IgA <4.0 CU (<20.0)
== END 2023-11-04 01:54 | disposition home or self-care (01) ==
PROVIDERS: PCP Family Medicine; Visit Provider Family Medicine
DX: K57.92 Diverticulitis of intestine, part unspecified, without perforation or abscess without bleeding (principal); R19.7 Diarrhea, unspecified
CPT/HCPCS: 36415; 82784; 83516

== ENCOUNTER 2024-01-03 10:35 | Day surgery (SDC) | payer OTHER, SELFPAY ==
--- NOTE | 2024-01-02 16:43 | W.PM.DSUDISC ---
Date of service: 01/03/24 Time of Service: 12:16 Discharge Plan Disposition Patient Disposition: Home Condition: Good Discharge Details Reason For Visit: Colonoscopy and EGD Attending Provider: Mando Peoples Primary Care Provider: Kati Rubio Home Meds and New Rx's Prescriptions: Continued magnesium oxide 250 mg magnesium tablet 250 mg PO QHS Kate with Turmeric capsule 1 cap PO DAILY bupropion HCl 150 mg tablet extended release 24 hr 150 mg PO QAM Qty: 90 4RF albuterol sulfate [Proventil HFA] 90 mcg/actuation HFA aerosol inhaler 2 puff inhalation Q6H PRN (Reason: shortness of breath or wheezing) Qty: 8.5 0RF multivitamin [Multi-Day] 1 EACH tablet 1 ea PO DAILY levothyroxine 50 mcg tablet 50 mcg PO DAILY Qty: 90 12RF amlodipine 5 mg tablet 5 mg PO DAILY Qty: 90 6RF omeprazole magnesium [Prilosec OTC] 20 mg tablet,delayed release (DR/EC) 20 mg PO DAILY Qty: 90 3RF famotidine 20 mg tablet 20 mg PO QHS Qty: 90 0RF loratadine 10 mg Tablet 10 mg PO DAILY acetaminophen 650 mg Tablet Extended Release 1,300 mg PO BID ibuprofen [Advil] 200 mg Tablet 400 mg PO BID clobetasol [Temovate] 0.05 % ointment 1 applic topical BID PRN levocetirizine [Xyzal] 5 mg Tablet 5 mg PO DAILY Discontinued polyethylene glycol 3350 17 gram/dose powder 238 g PO ONCE Qty: 238 0RF Rx Instructions: take per colonoscopy instructions bisacodyl [Dulcolax (bisacodyl)] 5 mg tablet,delayed release (DR/EC) 5 mg PO ONCE Qty: 4 0RF Rx Instructions: take per colonoscopy instructions Discharge Instructions Instructions: Diverticulosis (GEN), Colorectal Polyps (GEN), Diverticulosis Diet (GEN) Additional Instructions: Ysamine we were able to complete the EGD (upper endoscopy) as well as the colonoscopy (lower endoscopy) today without any issues. Generally, the EGD looks reassuring. There were 2 small areas in the stomach that were mildly inflamed, I did perform biopsies of these. I also perform random biopsies of your duodenum (the first part of your small intestine) as well as other locations within your stomach to rule out things like celiac disease or Helicobacter pylori as a source of your symptoms. Your colonoscopy shows diverticulosis, that mostly involves the sigmoid, and descending colon, although there are some diverticula scattered throughout the length of the large intestine. I also found a polyp, but I do not think accounts for any of your symptoms, but I did removed today as part of the colonoscopy. The rest of your colon looks fairly normal to the naked eye. Similar to your upper endoscopy I performed multiple biopsies along the length of your colon as well. Once I have the reports of all the biopsies, as well as the description of the nature of the polyp, I will be in touch with my recommendations moving forward. 1. If tolerated, consume a soft, low fiber diet for 1-2 days. [address] Do not drive, drink alcohol, operate machinery, make critical decisions, or do activities that require coordination or balance for 24 hours. 3. Because air was put into your colon during the procedure, expelling air from your rectum (passing gas or farting) is normal. 4. You may not have a bowel movement for 1-3 days because of the colonoscopy prep. This is normal. 5. You may experience a sore throat for 24 to 48 hours. You may use throat lozenges or gargle with warm salt water to relieve the discomfort. 6. Because air was put into your stomach during the procedure, you may experience some belching. 7. Go directly to the emergency room if you notice any of the following: Develop chills (warm to touch), or if you have a thermometer and your temperature is above 101 Difficulty breathing or difficultly swallowing Persistent vomiting Severe abdominal pain, other than gas cramps Severe chest pain Black, tarry stools Any bleeding ? exceeding one tablespoon 8. Call your physician if the site where your intravenous was started becomes red, swollen, painful, and warm to touch. 9. Your physician has reviewed your pre-procedure medications. Please continue to take those medications as previously ordered. You will be given specific information/education regarding any changes to your medications before leaving. Activity:: Activity as Tolerated Diet:: As Tolerated Discharge Orders Discharge Orders: Discharge Order (Routine); Ordered 01/02/24 Ordered By: Mando Peoples DS: Diagnosis Discharge Diagnosis (1) Diarrhea: Status: Acute Asessment and Plan: Follow-up on biopsy and polypectomy results
--- NOTE | 2024-01-02 16:44 | W.PREOPHP ---
Assessment and Plan Assessment and plan (1) Diarrhea: Status: Acute Assessment and plan: We reviwed the plan for EGD and colonoscopy today and the risks and the benefits of the procedure. Obviously, her diverticulosis poses some increased risk, but at this point, I think it safe to proceed. History of Present Illness History of Present Illness Chief Complaint: Abdominal pain with diarrhea Narrative: Yasmine is 53 years old, and she is here for an EGD and colonoscopy. By way of some history, she is got some complicated medical issues that include some interstitial lung disease that has improved significantly since she stopped smoking. She also carries a diagnosis of irritable bowel syndrome, that may be related to an idiopathic lymphocytosis. More recently, she is experienced 2 episodes of diverticulitis. Both were managed as an outpatient with antibiotic, with relatively quick improvement of her symptoms. Interestingly, when this occurred, majority of her pain was on the right lower abdomen, as opposed to the left. CAT scan does show some medialization of the redundant sigmoid, however, that I suspect could account for some of the symptomatology. She also complains of frequent GERD symptoms, with some intermittent improvement through the years using combination of proton pump inhibitors as well as H2 blockers. This occurs several times per week, and is typically is experienced as some regurgitation of sour brash type material. Since her last office visit, she has had a few more episodes of lower abdominal discomfort, but she has been feeling good over the past week or two. Bowel prep resulted in a fair amount of diarrhea, but otherwise she tolerated it well. 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) Spinal stenosis of lumbar region (Chronic 02/02/17) Stress incontinence of urine (Chronic 12/06/17) Tubular adenoma (Chronic) Hypothyroidism (Chronic) OUMAR II (vulvar intraepithelial neoplasia II) (Acute) Paresthesia of left foot (Acute) Cubital tunnel syndrome of both upper extremities (Acute) Carpal tunnel syndrome on both sides (Acute) Peripheral neuropathy (Acute) Spinal stenosis of lumbar region with radiculopathy (Acute) Encounter for annual physical exam (Acute) Medical History Vulvar irritation Shortness of breath Low immunoglobulin level Abnormal chest CT Encounter for screening for COVID-[address] Recurrent pneumonia Nicotine dependence, cigarettes, uncomplicated Cough Pigmented skin lesion Stress at home Sinusitis Chronic nasal congestion Fatigue Thickened endometrium Ulnar neuropathy Pain of right fibula (08/02/17) Malaise and fatigue Dizziness (07/05/17) Constipation Arthritis of hand Abnormal thyroid blood test (07/08/17) History of ectopic Chronic back pain Gastrointestinal problem Asthma BRCA negative Abnormal Pap smear of cervix Palliative care patient Surgical History Hx of tonsillectomy Normal colonoscopy (~07/2021) History of endometrial biopsy (~07/20/19) 07/20/19 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 Brother No problems noted. Son No problems noted. Son No problems noted. Son No problems noted. Daughter Essential hypertension Substance abuse Maternal Grandfather No problems noted. Paternal Grandfather , age 60ish No problems noted. Maternal Grandmother , age 60s No problems noted. Paternal Grandmother , age 70ish No problems noted. Social History Smoking/Tobacco Use Status: Current-Occasional Tobacco Type: cigarettes Tobacco: How many years used: 30 Quit status: considering quitting Second Hand Exposure: Yes Smoking risk assessment performed?: Yes Alcohol Intake: current Alcohol Intake frequency: 0-2 drinks per day Alcohol type: beer and wine Drug use: Never Substance use type: does not use Caregiver/Support person: No Household members: spouse and children Housing: house Number of Children: 4 Communication Needs: None Do you need help understanding health information?: Never current occupation: hairmasters manager Pets and animals: Yes Pets and animals: cat(s) and dog(s) Sexually active: No Do you think of yourself as: straight/heterosexual Current gender identity: female What is your relationship status?: How often do you talk on the phone with friends or family?: three or more times per week How often do you get together with friends or relatives?: once per week How often do you attend latter-day or faith services?: 1-3 times per year Do you belong to any clubs or organized social groups?: no Panel score (0-1 are the most socially isolated patients): 2 What type of physical activity do you participate in: walking Duration: 15-30 minutes/day Frequency: 3-4 times per week Lizy/Oriental Orthodox: No preference Special lizy needs: No Seatbelt use: always Helmet use: Yes Helmet use: always Drive intox or ride w/intox entry driver operator: No Do you feel safe at home: Yes Do you feel safe in your relationship?: Yes History History 7 Para 4 Hx # Term Pregnancies Multiple births Hx # Pregnancies Ectopic pregnancies AB induced Hx Number of Living Children AB spontaneous Meds Allergies and Home Medications Allergies Allergy/AdvReac Type Severity Reaction Status Date / Time fluconazole Allergy Intermediate TONGUE AND Verified 01/03/24 10:55 LIPS SWELLING latex Allergy RASH Verified 01/03/24 10:55 adhesive AdvReac Intermediate RASH Verified 01/03/24 10:55 venlafaxine HCl AdvReac NAUSEA Verified 01/03/24 10:55 [From Effexor] Home Medications Medication Instructions Recorded Confirmed Type multivitamin (Multi-Day tablet) 1 ea PO DAILY 06/22/13 01/03/24 History albuterol sulfate 90 mcg/actuation 2 puff inhalation Q6H PRN 09/29/21 01/03/24 Rx aerosol inhaler (Proventil HFA) shortness of breath or wheezing #8.5 grams loratadine 10 mg tablet 10 mg PO DAILY 06/09/22 01/03/24 History acetaminophen 650 mg 1,300 mg PO BID 06/10/22 01/03/24 History tablet,extended release levothyroxine 50 mcg tablet 50 mcg PO DAILY #90 tab-caps 10/22/22 01/03/24 Rx amlodipine 5 mg tablet 5 mg PO DAILY #90 tabs 11/02/22 01/03/24 Rx clobetasol 0.05 % topical ointment 1 applic topical BID PRN 05/28/23 01/03/24 History (Temovate) ibuprofen 200 mg tablet (Advil) 400 mg PO BID 05/28/23 01/03/24 History levocetirizine 5 mg tablet (Xyzal) 5 mg PO DAILY 05/28/23 01/03/24 History bupropion HCl 150 mg 24 hr tablet, 150 mg PO QAM #90 tabs 06/01/23 01/03/24 Rx extended release Kate with Turmeric 1 cap PO DAILY 07/12/23 01/03/24 History magnesium oxide 250 mg PO QHS 07/12/23 01/03/24 History omeprazole magnesium 20 mg 20 mg PO DAILY #90 tab-caps 10/12/23 01/03/24 Rx tablet,delayed release (Prilosec OTC) famotidine 20 mg tablet 20 mg PO QHS #90 tabs 10/15/23 01/03/24 Rx Exam Const General: cooperative, healthy appearing and not in acute distress Neck Neck: normal visual inspection, no lymphadenopathy and supple Resp Effort & Inspection: normal respiratory effort Auscultation: clear to auscultation bilaterally Cardio Jugular venous pressure: no JVD Rate: regular rate Rhythm: regular rhythm Heart Sounds: S1 normal and S2 normal GI Inspection: normal to inspection Palpation: soft, no guarding, no hernias and nontender Percussion: normal to percussion Auscultation: normal bowel sounds Neuro General: patient alert, patient awake and patient oriented x3 Psych Appearance: grossly normal
--- NOTE | 2024-01-02 16:46 | ENDO_ITS ---
Date of service: 01/03/24 Time of Service: 12:19 Endoscopy Report DATE OF PROCEDURE: 01/03/24 PRE-OP DIAGNOSIS: Diarrhea POST-OP DIAGNOSIS: other (Gastric polyps, diverticulosis, colon polyp) PROCEDURE: EGD with biopsies and polypectomy and Colonoscopy with biopsies and polypectomy SURGEON: Mando Peoples ANESTHESIA TYPE: General:No Airway ESTIMATED BLOOD LOSS: 15 PATHOLOGY: other (Random biopsies of duodenum, gastric antrum and gastric body. Gastric polyps x 2. GE junction biopsies. Random colon biopsies, 0.5 cm colon polyp at 20 cm from the anus) COMPLICATIONS: None DISPOSITION: same day INDICATIONS: Yasmine is 53 years old She is 53 years old. She carries a diagnosis of irritable bowel syndrome, that may be related to an idiopathic lymphocytosis. More recently, she is experienced 2 episodes of diverticulitis. Both were managed as an outpatient with antibiotic, with relatively quick improvement of her symptoms. Interestingly, when this occurred, majority of her pain was on the right lower abdomen, as opposed to the left. CAT scan does show some medialization of the redundant sigmoid, however, that I suspect could account for some of the symptomatology. She also complains of frequent GERD symptoms, with some intermittent improvement through the years using combination of proton pump inhibitors as well as H2 blockers. This occurs several times per week, and is typically is experienced as some regurgitation of sour brash type material. PREP: Miralax/Dulcolax PROCEDURE START TIME: 11:38 PROCEDURE END TIME: 12:01 COLONOSCOPY RETRACTION TIME: 8 FINDINGS: Random biopsies of duodenum, gastric antrum and gastric body. Gastric polyps x 2. GE junction biopsies. Diverticulosis. Random colon biopsies, 0.5 cm colon polyp at 20 cm from the anus PROCEDURE DESCRIPTION: After the initiation of anesthesia, and with the assistance of a bite block, I advanced a standard gastroscope through the mouth past the hypopharynx and into the esophagus.? Under the direct vision of the scope, I advanced down the esophagus into the stomach.? The GE junction and Z-line were encountered at 37 cm from the incisors. They appeared normal. Narrowband imaging was used to assist with analysis. Advance the camera down into the stomach. I performed retroflexion. I did not see any signs of hiatal hernia. There were 2 punctate areas of erythema that had some polypoid features. These were removed with cold forceps, and labeled gastric polyps 1 and 2. There was minimal bleeding. I turned the camera antegrade, and advanced down towards the incisura angularis. This was normal-appearing. The pylorus appeared normal. I advanced into the duodenum, and down to the level of the ampulla Vater. Random biopsies were performed in the duodenum using cold forceps without any issues. The camera was brought back up into the stomach, and random biopsies of the gastric antrum and body were obtained to rule out Helicobacter pylori. I brought the camera back up to the GE junction and perform biopsies here as well. Camera was then brought out along the length of the esophagus. It was examined in its entirety and appeared normal. Next we rolled Yasmine into the left lateral decubitus position. I began by performing an external anorectal exam.? Perineum and skin were normal, as was the anal verge.? There was no evidence of external hemorrhoids.? Next, I performed a digital rectal exam.? I did not appreciate any abnormal findings.? Next, I advanced a colonoscope into the rectal vault.? I performed retroflexion.? I this appeared normal.? Using insufflation, I then advanced the colonoscope beyond the rectal folds and into the sigmoid colon before advancing towards the cecum.? There was sigmoid diverticulosis that extended from about 15 cm beyond the anus to around 40 cm. There were some sparse diverticula noted after that within the descending, transverse, and ascending colons. The scope was noted to be in the cecum by identification of the ileocecal valve and appendiceal orifice.? I then began withdrawing the colonoscope using repeated irrigation as necessary for full evaluation of the colonic mucosa. Because of the nonspecific nature of her diarrhea, I perform random biopsies of the colon using cold forceps to rule out microscopic colitis. I also encountered a polyp around 20 cm from the anus. It was about 0.5 cm and flat. I removed it with cold forceps. There was minimal bleeding. ?Once the scope was withdrawn to the level of the rectum, great care was taken to examine portions of the rectal folds.? Finally, the scope was withdrawn and the patient was [facility] as the anesthetic wore off. ?The findings and instructions were shared with the patient prior to discharge.
[2024-01-03 10:40] VITALS: BP 109/77; PULSE 95; RESP 20; TEMP 36.5; O2SAT 100
[2024-01-03] MEDS: Lactated Ringers 1,000 ML 80 ML IV (11:06)
--- NOTE | 2024-01-03 11:14 | W.ANESPRE ---
General Info Date of Service Date Performed: 01/03/24 Height: 5 ft 2.5 in Weight: 60.4 kg Body Mass Index (BMI): 23.9 Surgical Procedure: Operation Date: 01/03/24 12:05 Proposed Procedure Side Surgeon p Colonoscopy/Gastroscopy Mando Peoples MD Meds Allergies and Home Medications Allergies Allergy/AdvReac Type Severity Reaction Status Date / Time fluconazole Allergy Intermediate TONGUE AND Verified 01/03/24 10:55 LIPS SWELLING latex Allergy RASH Verified 01/03/24 10:55 adhesive AdvReac Intermediate RASH Verified 01/03/24 10:55 venlafaxine HCl AdvReac NAUSEA Verified 01/03/24 10:55 [From Effexor] Home Medication Medication Instructions Recorded multivitamin (Multi-Day tablet) 1 ea PO DAILY 06/22/13 albuterol sulfate 90 mcg/actuation 2 puff inhalation Q6H PRN 09/29/21 aerosol inhaler (Proventil HFA) shortness of breath or wheezing #8.5 grams loratadine 10 mg tablet 10 mg PO DAILY 06/09/22 acetaminophen 650 mg 1,300 mg PO BID 06/10/22 tablet,extended release levothyroxine 50 mcg tablet 50 mcg PO DAILY #90 tab-caps 10/22/22 amlodipine 5 mg tablet 5 mg PO DAILY #90 tabs 11/02/22 clobetasol 0.05 % topical ointment 1 applic topical BID PRN 05/28/23 (Temovate) ibuprofen 200 mg tablet (Advil) 400 mg PO BID 05/28/23 levocetirizine 5 mg tablet (Xyzal) 5 mg PO DAILY 05/28/23 bupropion HCl 150 mg 24 hr tablet, 150 mg PO QAM #90 tabs 06/01/23 extended release Kate with Turmeric 1 cap PO DAILY 07/12/23 magnesium oxide 250 mg PO QHS 07/12/23 omeprazole magnesium 20 mg 20 mg PO DAILY #90 tab-caps 10/12/23 tablet,delayed release (Prilosec OTC) famotidine 20 mg tablet 20 mg PO QHS #90 tabs 10/15/23 Current Visit Medications: Current Medications Generic Name Dose Route Start Last Admin Trade Name Freq PRN Reason Stop Dose Admin Hyoscyamine Sulfate 0.125 mg 01/02/24 16:48 Hyoscyamine 0.125 Mg Sl/Oral/Chew SL 02/01/24 16:47 DIRECTED PRN Ringer's Solution 1,000 mls @ 80 mls/hr 01/03/24 06:00 01/03/24 11:06 IV 01/03/24 23:59 80 mls/hr INFUSION RODO Administration IV Miscellaneous Supplies 1 each 01/03/24 06:00 Iv Access IV 01/03/24 23:59 DIRECTED RODO Ondansetron HCl 4 mg 01/02/24 16:48 Ondansetron 4 Mg/2 Ml Vial IVP 02/01/24 16:47 Q4H PRN PRN Nausea / Vomiting Sodium Chloride 0 ml 01/03/24 06:00 Normal Saline Flush 10 Ml Syr IV 01/03/24 23:59 PRN PRN Sodium Chloride 0 ml 01/03/24 06:00 Normal Saline 10 Ml Vial IJ 01/03/24 23:59 DIRECTED PRN Sterile Water 0 ml 01/03/24 06:00 Water,Injection,Sterile 10 Ml Vial IJ 01/03/24 23:59 DIRECTED PRN PFSH Active Problems Active Problems: Problem Status Onset Code Diarrhea R19.7 Diverticulitis K57.92 Fever R50.9 Tick bite W57.XXXA Skin lesion L98.9 Persistent lymphocytosis D72.820 Arthralgia M25.50 Cervical pain M54.2 Recurrent sinus infections J32.9 Fatigue R53.83 Respiratory bronchiolitis associated interstitial lung disease J84.115 Fatigue R53.83 High cholesterol E78.00 GERD (gastroesophageal reflux disease) K21.9 IC (interstitial cystitis) N30.10 Liver lesion K76.9 Malignant neoplasm of right breast, stage 3 C50.911 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 Spinal stenosis of lumbar region 02/02/17 M48.061 Stress incontinence of urine 12/06/17 N39.3 Tubular adenoma D36.9 Hypothyroidism 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 Paresthesia of left foot R20.2 Cubital tunnel syndrome of both upper extremities G56.23 Carpal tunnel syndrome on both sides G56.03 Peripheral neuropathy G62.9 Spinal stenosis of lumbar region with radiculopathy M48.061, M54.16 Encounter for annual physical exam Z00.00 Medical History Medical History Vulvar irritation Shortness of breath Low immunoglobulin level Abnormal chest CT Encounter for screening for COVID-[address] Recurrent pneumonia Nicotine dependence, cigarettes, uncomplicated Cough Pigmented skin lesion Stress at home Sinusitis Chronic nasal congestion Fatigue Thickened endometrium Ulnar neuropathy Pain of right fibula (08/02/17) Malaise and fatigue Dizziness (07/05/17) Constipation Arthritis of hand Abnormal thyroid blood test (07/08/17) History of ectopic Chronic back pain Gastrointestinal problem Asthma BRCA negative Abnormal Pap smear of cervix Palliative care patient Surgical History Surgical History Hx of tonsillectomy Normal colonoscopy (~07/2021) History of endometrial biopsy (~07/20/19) 07/20/19 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; HSIL; VIN2 History of lymph node excision RIGHT LYMPH NODE REMOVAL 2011 Radiofrequency-medial lumbar/sacral 08/05/17 , Ectopic Right Hemorrhoidectomy Diagnostic Laproscopy (~2004) for pain Cholecystectomy Breast, Lumpectomy (~2000) right Tobacco Smoking/Tobacco Use Status: Current-Occasional Tobacco Type: cigarettes Passive smoking exposure: No Second hand exposure: Yes Alcohol Alcohol Intake: current Alcohol intake frequency: 0-2 drinks per day Alcohol type: beer and wine Substance Use Substance use: Never Substance use type: does not use Prental History History 7 Para 4 Hx # Term Pregnancies Multiple births Hx # Pregnancies Ectopic pregnancies AB induced Hx Number of Living Children AB spontaneous Vital Signs and Lab Results Vital Signs Most Recent Vital Signs in EMR: Most Recent Vital Signs Temp Pulse Resp BP Pulse Ox 36.5 C 95 H 20 109/77 100 01/03/24 10:40 01/03/24 10:40 01/03/24 10:40 01/03/24 10:40 01/03/24 10:40 Lab Results Blood Type / Crossmatch: No Data to Display Complete Blood Count: No Data to Display Complete Metabolic Panel: No Data to Display Liver Function Panel: No Data to Display Coagulation Panel: No Data to Display Cardiac Panel: No Data to Display Arterial Blood Gas: No Data to Display Venous Blood Gas: No Data to Display Pancreas Panel: No Data to Display Thyroid Panel: No Data to Display Infectious Disease: No Data to Display Blood Cultures: No Data to Display Toxicology Panel: No Data to Display Imaging and Studies Imaging and Studies Study information below may be from another EMR and interpreted by another provider. Please see original notes in EMR for more complete details. EKG Summary: EKG PATIENT NAME: Yasmine Matthew UNIT #: [id number] ORDERING PROVIDER: Kait Ngo NP PRIMARY CARE PROVIDER: ELIF DIAZ MD, DC DATE/TIME OF SERVICE: 08/10/23 1525 : 1970 PERFORMING LOCATION: [facility] APPROVED REPORT Exam: Resting ECG Reason for Exam: chest discomfort Patient Location: HR:92 bpm ECG Measurements Heart Rate 92 AXIS MA 123 P 21 QRSd 88 QRS 15 QT 368 T24 QTc 456 Conclusion Sinus rhythm...normal P axis, V-rate 50- 99 Consider left ventricular hypertrophy...(R aVL+S V3) >2.20mV Otherwise normal ECG <Electronically signed by NAM JENNINGS MD in OV> E-Sign Date: 08/12/23 E-Sign Time: 825 Stress Test Summary: 01/11: 7.4 mets, EKG negative for ischemia. normal MPI - no ischemia or infarction. Echocardiogram Summary: 01/11: LVEF 50-54%, trace MR, mild TR. Pulmonary Function Summary: 09/2021: normal Pulmonary Function Test PATIENT NAME: Yasmine Matthew UNIT #: [id number] ADMITTING PROVIDER: Rocio Macedo M.D. PRIMARY CARE PROVIDER: ELIF DIAZ MD, DC DATE OF ADMIT: 06/29/22 : 1970 Date of service: 06/29/22 Time of Service: 08:05 Pulmonary Function Test Result Requesting Provider Remington Indications: Recurrent pneumonia Interpretation Spirometry: There is no airflow limitation. There is no bronchodilator response. The FVC is low. Lung Volumes: Lung volumes are normal. Diffusion Capacity: The diffusion is low. Airway Pressure: Normal airways resistance. Impression Low diffusion with otherwise normal pulmonary function. Note: When compared to 10/20/21, the FEV1 and FVC are essentially unchanged. Clinical Correlation therefore is recommended. cc: Dictated by: ROCIO MACEDO MD Dictated: 06/29/22 Time: 1552 <Electronically signed by Rocio Macedo M.D.> Date: 06/29/221555 Date: Date: Transcribed Date: 06/29/22 Transcribed Time: 1552 By: ROSA M This is privileged, confidential information, intended only for the provider named. Any use or distribution by any person other than this provider is strictly prohibited. If you receive this report in error, please notify us immediately at [phone] and return the original report to us at the address above. Thank you. Anesthesia Assessment and Plan Anesthesia History Personal History: No History of Anesthesia Complications Family History: No Family History of Anesthesia Complications Exercise Tolerance Exercise Tolerance: Metabolic Equivalents>4 Pertinent Negatives Pertinent Negatives: No History of CVA/TIA Cardiac & Pulmonary Exam Cardiac Exam: Normal S1/S2 Heart Sounds Pulmonary Exam: Clear Bilateral Breath Sounds Implantable Cardiac Device Does patient have a Pacemaker or an ICD?: No Airway Exam Known Difficult Airway: No Mallampati Class: 1 Mouth Opening: Normal (> 3cm) Thyromental Distance: Greater than 3 cm Neck Range of Motion: Full ROM Neck Circumference: Normal Teeth Condition: Normal Dentition ASA Classification ASA Score: ASA 3 Emergency Case?: No NPO Status NPO Status: NPO Clears >2 hours, Solids >8 hours Anesthesia Plan Resuscitation Status: Full Code Anesthesia Technique: General Anesthesia Airway Planned: Natural Airway Monitors Used: Standard Monitors Preoperative Comments:: Sig PMHx: asthma, GERD (fair control with meds), spinal stenosis (occ numbness in hands and feet), smoker (half ppd), hypothyroid (on replacement), breast CA (mastectomy), interstitial lung disease
--- NOTE | 2024-01-03 11:39 | BOWEL_PTH ---
PATIENT: Yasmine Matthew LOC: [facility] U#:[id number] AGE/SX: 53/F ROOM: RE01/03/[address]: Mando Peoples MD : 1970 BED: DIS: 01/03/2024 SPEC #: [id number] RECD: 01/03/24 13:12 STATUS: [facility] #: [id number] RENE: 01/03/24 11:[address]: Mando Peoples DEPT: Surgical Specimen RECD BY: Jolene Ram ENTERED: 01/03/24 13:18 SP TYPE: Bowel OTHR DR: Kati Rubio MD, DC Tissues: 1 - BIOPSY BOWEL 2 - STOMACH BIOPSY 3 - STOMACH BIOPSY 4 - STOMACH BIOPSY 5 - ESOPHAGUS BIOPSY 6 - STOMACH BIOPSY 7 - BIOPSY BOWEL 8 - BIOPSY BOWEL Procedures: GROSS AND MICRO LEVEL 4 Comments: [id number]
[2024-01-03 11:59] VITALS: BMI 23.9
[2024-01-03 12:08] VITALS: BP 100/71; PULSE 78; RESP 20; TEMP 36.2; O2SAT 100
--- NOTE | 2024-01-03 12:11 | W.ANESPOSTOP ---
Postoperative Evaluation Date, Time and Location Date Performed: 01/03/24 Time Performed: 12:11 Patient Location: Day Surgery Unit Vital Signs Most Recent Imported Vital Signs: Most Recent Vital Signs Temp Pulse Resp BP Pulse Ox 36.2 C L 78 20 100/71 100 01/03/24 12:08 01/03/24 12:08 01/03/24 12:08 01/03/24 12:08 01/03/24 12:08 Pain Score Most Recent Pain Score: Most Recent Pain Score Pain Level 0 01/03/24 12:08 Assessment Mental Status: Awake (Alert & Oriented to Patient Baseline) Airway and Respiratory Function: Patent airway with normal (patient baseline) respiratory exam Cardiovascular Function: Hemodynamically Stable Hydration Status: Adequately Hydrated Nausea & Vomiting: No Nausea or Vomiting Pain: Pt. Denies Any Pain Peripheral Nerve Block: Patient did not receive a nerve block
[2024-01-03 12:35] VITALS: BP 103/73; PULSE 97; RESP 20; TEMP 36.6; O2SAT 97
== END 2024-01-03 13:00 | disposition home or self-care (01) ==
LOC: SUR 10:36
PROVIDERS: PCP Family Medicine; Visit Provider Surgery
PROC: (CPT 45380; principal; 2024-01-03 12:00)
DX: R19.7 Diarrhea, unspecified (principal); K63.5 Polyp of colon; K31.7 Polyp of stomach and duodenum; K57.30 Diverticulosis of large intestine without perforation or abscess without bleeding; K21.9 Gastro-esophageal reflux disease without esophagitis
CPT/HCPCS: 45380; 43239; 88305; J2704

== ENCOUNTER 2024-02-09 05:08 | Outpatient (CLI) | payer OTHER, SELFPAY ==
[2024-02-09 13:33] LABS: Abs Immature Grans 0.03 10^3/uL (0.0-0.06); Absolute Basophil Count 0.05 10^3/uL (0.0-0.2); Absolute Eosinophil Count 0.25 10^3/uL (0.0-0.7); Absolute Lymphocyte Count 4.53 10^3/uL (1.2-3.4); Absolute Monocyte Count 1.02 10^3/uL (0.1-0.8); Basophils % 0.5; Eosinophils % 2.3; HCT 36.5 % (36.0-46.0); HGB 12.3 g/dL (11.2-15.7); Immature Grans % 0.3; Lymphocytes % 41.6; MCH 30.8 pg (27.0-33.0); MCHC 33.7 % (32.0-36.0); MCV 91 fL (80-95); Monocytes % 9.4; Neutrophils % 45.9; Platelet Count 352 10^3/uL (130-400); RDW 12.8 % (11.7-14.6); RDW-SD 42.8 fL
[2024-02-09 14:14] LABS: ALT 21 U/L (14-59); AST 16 U/L (15-37); Alkaline Phosphatase 124 U/L (46-116); Anion Gap 12.9 mmol/L (3-11); BUN 13 mg/dL (7-18); Bilirubin, Total 0.2 mg/dL (0.2-1.0); CO2 23.1 mmol/L (21.0-32.0); CREATININE 0.9 mg/dL (0.55-1.02); Calcium 9.4 mg/dL (8.5-10.1); Chloride 106 mmol/L (98-107); Glucose 111 mg/dL (74-106); LDH 158 U/L (81-234); Potassium 3.8 mmol/L (3.5-5.1); Sodium 142 mmol/L (136-145); Total Protein 7.4 g/dL (6.4-8.2)
[2024-02-10 09:54] LABS: IgA 178 mg/dL (85-499); IgG 702 mg/dL (610-1616); IgM 35 mg/dL (35-242); Kappa Free Light Chain 1.02 mg/dL (0.33-1.94); Lambda Free Light Chain 1.24 mg/dL (0.57-2.63)
[2024-02-10 15:18] LABS: Albumin 64.6 % (55.8-66.1); Albumin g/dL 4.7 g/dL (3.6-5.2); Comment (See Note); Monoclonal Spike 4.5 % (None Seen); Monoclonal Spike g/dL 0.3 g/dL (None Seen); Total Protein 7.2 g/dL (6.3-8.2)
== END 2024-02-09 05:09 | disposition home or self-care (01) ==
LOC: LBO 05:08
PROVIDERS: PCP Family Medicine; Visit Provider Internal Medicine Hematology & Oncology
DX: D47.2 Monoclonal gammopathy (principal)
CPT/HCPCS: 36415; 80053; 82784; 83615; 83883; 84165; 85025

== ENCOUNTER 2024-08-25 02:01 | Outpatient (CLI) | payer OTHER, SELFPAY ==
[2024-08-25 15:22] LABS: ALT 26 U/L (14-59); AST 18 U/L (15-37); Albumin 4.2 g/dL (3.4-5.0); Alkaline Phosphatase 130 U/L (46-116); Anion Gap 11.1 mmol/L (3-11); BUN 12 mg/dL (7-18); Bilirubin, Total 0.35 mg/dL (0.2-1.0); CO2 25.9 mmol/L (21.0-32.0); CREATININE 0.7 mg/dL (0.55-1.02); Calcium 9.7 mg/dL (8.5-10.1); Calculated LDL 121 mg/dL (<100); Chloride 102 mmol/L (98-107); Cholesterol 226 mg/dL (<200); Estimated GFR 101.44 (mL/min/1.73m2); Glucose 105 mg/dL (74-106); HDL Cholesterol 56 mg/dL (40-60); Magnesium 2.4 mg/dL (1.8-2.4); Potassium 3.5 mmol/L (3.5-5.1); Sodium 139 mmol/L (136-145); TSH (W/Ref FT4) 1.12 uIU/mL (0.36-3.74); Triglyceride 246 mg/dL (<150)
[2024-08-25 15:25] LABS: Vitamin B12 > 2000 pg/mL (193-986)
[2024-08-28 10:08] LABS: Hepatitis C Ab w Rflx HCV PCR Negative (Negative)
== END 2024-08-25 02:02 | disposition home or self-care (01) ==
PROVIDERS: PCP Family Medicine; Visit Provider Family Medicine
DX: E03.9 Hypothyroidism, unspecified (principal); Z00.00 Encounter for general adult medical examination without abnormal findings; I10 Essential (primary) hypertension; Z11.59 Encounter for screening for other viral diseases
CPT/HCPCS: 36415; 80053; 80061; 86803; 82607; 83735; 84443

== ENCOUNTER 2024-09-04 16:03 | Outpatient (CLI) | payer OTHER, SELFPAY ==
--- NOTE | 2024-09-04 16:00 | RT.EKG_ITS ---
APPROVED REPORT Exam: Resting ECG Reason for Exam: chest discomfort Patient Location: O HR:84 bpm ECG Measurements Heart Rate 84 AXIS NC 133 P 42 QRSd 96 QRS 16 QT 380 T 20 QTc 450 Conclusion Sinus rhythm...normal P axis, V-rate 50- 99 Left ventricular hypertrophy...multiple voltage criteria
== END 2024-09-04 16:04 | disposition home or self-care (01) ==
LOC: DI.CM 16:03
PROVIDERS: PCP Family Medicine; Visit Provider Nurse Practitioner Family
DX: R07.89 Other chest pain (principal)
CPT/HCPCS: 93010

== ENCOUNTER 2024-09-04 17:17 | Emergency (ER) | payer OTHER, SELFPAY ==
--- NOTE | 2024-09-04 17:15 | RT.EKG_ITS ---
APPROVED REPORT Exam: Resting ECG Reason for Exam: chest pain Patient Location: E HR:97 bpm ECG Measurements Heart Rate 97 AXIS MN 117 P 12 QRSd 82 QRS 2 QT 355 T 25 QTc 451 Conclusion Sinus rhythm, rate 97 No interval abnormalities No STEMI
[2024-09-04 17:23] VITALS: BP 149/99; PULSE 103; RESP 15; TEMP 36.7; O2SAT 98
--- NOTE | 2024-09-04 17:45 | DI.RAD_ITS ---
Exam(s) XR CHEST 2V PA LATERAL EXAM: XR CHEST 2V PA LATERAL CLINICAL HISTORY: CP. TECHNIQUE: 2D digital imaging was performed. COMPARISON: CR XR PORTABLE CHEST AP from 06/10/2022 FINDINGS: 2 views: Heart size is normal. The mediastinum is not widened. Lungs are clear. No infiltrates nor pleural effusions. IMPRESSION: No acute pulmonary findings. DATA REPOSITORY: RADIATION DOSE DELIVERED:
--- NOTE | 2024-09-04 17:56 | ED.GENADUL_ITS ---
Discharge Plan Disposition Patient Disposition: Home Condition: Stable Discharge Details Clinical Impression: Chest pain of unknown etiology, GERD (gastroesophageal reflux disease) Primary Care Provider: Kati Rubio ED Provider: Petra Escobar Home Meds and New Rx's Prescriptions: New omeprazole 20 mg capsule,delayed release(DR/EC) 20 mg PO DAILY 14 Days Qty: 14 0RF No Action magnesium oxide 250 mg magnesium tablet 250 mg PO QHS Kate with Turmeric capsule 1 cap PO DAILY albuterol sulfate [Proventil HFA] 90 mcg/actuation HFA aerosol inhaler 2 puff inhalation Q6H PRN (Reason: shortness of breath or wheezing) Qty: 8.5 0RF multivitamin [Multi-Day] 1 EACH tablet 1 ea PO DAILY omeprazole magnesium [Prilosec OTC] 20 mg tablet,delayed release (DR/EC) 20 mg PO DAILY Qty: 90 3RF famotidine 20 mg tablet 20 mg PO QHS Qty: 90 0RF levothyroxine 50 mcg tablet 50 mcg PO DAILY Qty: 90 12RF bupropion HCl 150 mg tablet extended release 24 hr 150 mg PO QAM Qty: 90 4RF amlodipine 5 mg tablet 5 mg PO DAILY Qty: 90 6RF atorvastatin 10 mg tablet 10 mg PO DAILY Qty: 90 4RF loratadine 10 mg Tablet 10 mg PO DAILY acetaminophen 650 mg Tablet Extended Release 1,300 mg PO BID ibuprofen [Advil] 200 mg Tablet 400 mg PO BID clobetasol [Temovate] 0.05 % ointment 1 applic topical BID PRN levocetirizine [Xyzal] 5 mg Tablet 5 mg PO DAILY Discharge Instructions Instructions: Chest Pain (DC) Additional Instructions: You were seen in the emergency department today for evaluation of chest pain. In our department he had a full physical examination performed, had laboratory studies that were reassuring including cardiac enzymes that were negative and testing for blood clots that was negative. We discussed possible etiologies of your chest pain, which could include acid reflux, anxiety, or medication effects. I have started you on a medication called omeprazole to be taken daily for the next 2 weeks to determine if that improves your symptoms. You also need to follow-up with your primary care provider in the next few days to discuss this visit and any symptoms that change, worsen, or persist. Thank you for allowing us to be part of your care. HPI General Date/Time Provider Initiated Documentation: 09/04/24 17:32 . Limitations to Documentation: no limitations . Information obtained by: patient and old records reviewed . HPI Narrative: HPI: This is a 54-year-old female patient with a past medical history significant for GERD, breast cancer in remission, hypothyroidism, who is presenting for evaluation of intermittent chest pain that occurs when driving for the last few weeks. The patient reports that she has noted this aching pain in the center of her chest, does not radiate but it seems to be worse when she has to drive especially in traffic. For this reason she assumed that it was likely related to some anxiety. She states that she has a long history of back pain and left shoulder blade pain, which has been intermittently present since removal of her port for chemotherapy years ago. The patient was seen at an urgent care facility today, who recommended that the patient be seen here in the emergency department for cardiac and thromboembolic workup. The patient reports that her pain is mild, she has not tried any medications in the outpatient environment for management of her symptoms. She has not noted any fevers or chills, shortness of breath, cough, nausea or vomiting. She does not take any antiacid medications at this time. She has a history of early cardiac disease in family members, no history of cardiac disease herself. Exam: Gen: Awake and alert, in no apparent distress HEENT: Non-icteric sclera Neck: Supple Lungs: No apparent respiratory distress, normal respiratory effort. Lung sounds clear and equal bilaterally CV: Appears well perfused, heart with regular rate and rhythm, strong and symmetrical distal pulses Abdomen: Non-distended, soft, nontender MSK: Moves 4 extremities without apparent limitation in ROM, no unilateral calf swelling or tenderness, no peripheral edema Skin: Visualized skin without rashes, cyanosis. Neuro: Normal Gait, no obvious focal deficits or facial asymmetry. Speaks in full, clear sentences. Psych: Appropriate for situation. MDM: This is a 54-year-old female patient presenting for evaluation of chest pain. My differential includes but is not limited to ACS including STEMI, NSTEMI, unstable angina. Considered pericarditis, myocarditis, arrhythmia, aortic disease. Considered pulmonary embolism though the patient is reassuringly without evidence of DVT symptoms (does not meet PERC criteria for rule out due to her age and tachycardia). Consider pulmonary etiologies including pneumonia, pulmonary edema, pleural effusion, pneumothorax, reactive airway disease. Considered GERD, esophagitis, gastritis/peptic ulcer disease. Certainly considered an anxiety component given the patient's reported onset of symptoms with stress. Considered musculoskeletal etiologies including chest wall contusion, costochondritis, and considered pleurisy. Will obtain laboratory studies to include CBC, CMP, troponin, D-dimer. I will obtain chest x-ray and an EKG. ED Course: EKG nonischemic, showing a normal sinus rhythm without evidence of interval abnormality or ectopy. I independently interpreted the laboratory studies, which show no significant leukocytosis, anemia, or thrombocytopenia. The chemistry panel is without evidence of electrolyte abnormality, kidney dysfunction, or liver injury. Troponin is very low at 4, and given the duration of symptoms have a very low concern for ischemia. D-dimer was negative. Chest x-ray without evidence of abnormalities that could explain the patient's symptoms. The patient did endorse that she is concerned that her statin could be contributing to the symptoms, and I advised that she should follow-up with her primary care provider to discuss reassessment, changes in medications, and anxiety management. I additionally have started this patient on a 14-day trial of omeprazole for GERD management. At this time, the patient has had a full medical evaluation and is safe for discharge to home. They are hemodynamically stable, ambulatory, and tolerating PO. They are understanding of the follow-up plan and return precautions. They left our facility without incident. Petra Escobar MD Related Data Home Medications ?Medication ?Instructions ?Recorded ?Confirmed multivitamin (Multi-Day tablet) 1 ea PO DAILY 06/22/13 09/04/24 albuterol sulfate 90 mcg/actuation 2 puff inhalation Q6H PRN 09/29/21 09/04/24 aerosol inhaler (Proventil HFA) shortness of breath or wheezing #8.5 grams loratadine 10 mg tablet 10 mg PO DAILY 06/09/22 09/04/24 acetaminophen 650 mg 1,300 mg PO BID 06/10/22 09/04/24 tablet,extended release clobetasol 0.05 % topical ointment 1 applic topical BID PRN 05/28/23 09/04/24 (Temovate) ibuprofen 200 mg tablet (Advil) 400 mg PO BID 05/28/23 09/04/24 levocetirizine 5 mg tablet (Xyzal) 5 mg PO DAILY 05/28/23 09/04/24 Kate with Turmeric 1 cap PO DAILY 07/12/23 09/04/24 magnesium oxide 250 mg PO QHS 07/12/23 09/04/24 omeprazole magnesium 20 mg 20 mg PO DAILY #90 tab-caps 10/12/23 09/04/24 tablet,delayed release (Prilosec OTC) famotidine 20 mg tablet 20 mg PO QHS #90 tabs 10/15/23 09/04/24 levothyroxine 50 mcg tablet 50 mcg PO DAILY #90 tab-caps 01/17/24 09/04/24 amlodipine 5 mg tablet 5 mg PO DAILY #90 tabs 01/19/24 09/04/24 bupropion HCl 150 mg 24 hr tablet, 150 mg PO QAM #90 tabs 01/19/24 09/04/24 extended release atorvastatin 10 mg tablet 10 mg PO DAILY #90 tabs 08/28/24 09/04/24 omeprazole 20 mg capsule,delayed 20 mg PO DAILY 14 days #14 caps 09/04/24 release Previous Rx's ?Medication ?Instructions ?Recorded albuterol sulfate 90 mcg/actuation 2 puff inhalation Q6H PRN 09/29/21 aerosol inhaler (Proventil HFA) shortness of breath or wheezing #8.5 grams omeprazole magnesium 20 mg 20 mg PO DAILY #90 tab-caps 10/12/23 tablet,delayed release (Prilosec OTC) famotidine 20 mg tablet 20 mg PO QHS #90 tabs 10/15/23 levothyroxine 50 mcg tablet 50 mcg PO DAILY #90 tab-caps 01/17/24 amlodipine 5 mg tablet 5 mg PO DAILY #90 tabs 01/19/24 bupropion HCl 150 mg 24 hr tablet, 150 mg PO QAM #90 tabs 01/19/24 extended release atorvastatin 10 mg tablet 10 mg PO DAILY #90 tabs 08/28/24 omeprazole 20 mg capsule,delayed 20 mg PO DAILY 14 days #14 caps 09/04/24 release Allergies Allergy/AdvReac Type Severity Reaction Status Date / Time fluconazole Allergy Intermediate TONGUE AND Verified 09/04/24 15:59 LIPS SWELLING latex Allergy RASH Verified 09/04/24 15:59 adhesive AdvReac Intermediate RASH Verified 09/04/24 15:59 venlafaxine HCl (From AdvReac NAUSEA Verified 09/04/24 15:59 Effexor) General Stated Complaint: Chest Pain LELE: 3 Course Vital Signs Vital signs: Vital Signs Temperature 36.7 C 09/04/24 17:23 Pulse 103 H 09/04/24 17:23 Respiratory Rate 15 09/04/24 17:23 Blood Pressure 149/99 H 09/04/24 17:23 Pulse Oximetry 98 09/04/24 17:23 Temperature 36.7 C 09/04/24 17:23 Pulse 103 H 09/04/24 17:23 Respiratory Rate 15 09/04/24 17:23 Blood Pressure 149/99 H 09/04/24 17:23 Blood Pressure Position Sitting 09/04/24 17:23 Pulse Oximetry 98 09/04/24 17:23 Oxygen Delivery Method Room Air 09/04/24 17:23 Oxygen Flow Rate 0 09/04/24 17:23 Pain Level 3 09/04/24 17:23 Medical Decision Making Quality:SDOH Health Related Social Needs: No Data to Display PFSH All Active Problems (Updated 09/04/24 @ 19:11 by Petra Escobar MD) Chest pain of unknown etiology (Acute) Encounter for hepatitis C screening test for low risk patient (Acute) Reaction to food (Acute) Environmental allergies (Acute) Persistent lymphocytosis (Acute) Cervical pain (Acute) Recurrent sinus infections (Acute) Fatigue (Acute) 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) GERD (gastroesophageal reflux disease) (Chronic) IC (interstitial cystitis) (Chronic) Malignant neoplasm of right breast, stage 3 (Chronic) Stress incontinence of urine (Chronic 12/06/17) Tubular adenoma (Chronic) Hypothyroidism (Chronic) OUMAR II (vulvar intraepithelial neoplasia II) (Acute) Paresthesia of left foot (Acute) Carpal tunnel syndrome on both sides (Acute) Peripheral neuropathy (Acute) Spinal stenosis of lumbar region with radiculopathy (Acute) Encounter for annual physical exam (Acute) Medical History (Updated 09/04/24 @ 19:11 by Petra Escobar MD) Fever Diverticulitis High cholesterol Vulvar irritation Shortness of breath Low immunoglobulin level Abnormal chest CT Encounter for screening for COVID-[address] Recurrent pneumonia Nicotine dependence, cigarettes, uncomplicated Cough Pigmented skin lesion Stress at home Sinusitis Chronic nasal congestion Fatigue Thickened endometrium Ulnar neuropathy Pain of right fibula (08/02/17) Malaise and fatigue Dizziness (07/05/17) Constipation Arthritis of hand Abnormal thyroid blood test (07/08/17) History of ectopic Chronic back pain Gastrointestinal problem Asthma BRCA negative Abnormal Pap smear of cervix Palliative care patient Surgical History (Updated 01/03/24 @ 14:11 by Veronica Galloway) History of esophagogastroduodenoscopy (~12/2023) Hx of tonsillectomy Normal colonoscopy (~12/2023) History of endometrial biopsy (~07/20/19) 07/20/19 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 Brother No problems noted. Son No problems noted. Son No problems noted. Son No problems noted. Daughter Essential hypertension Substance abuse Maternal Grandfather No problems noted. Paternal Grandfather , age 60ish No problems noted. Maternal Grandmother , age 60s No problems noted. Paternal Grandmother , age 70ish No problems noted. Social History (Updated 08/14/24 @ 14:16 by Dana Nelson) Smoking/Tobacco Use Status: Current-Occasional Tobacco Type: cigarettes Tobacco: How many years used: 30 Quit status: has quit before Second Hand Exposure: Yes Smoking risk assessment performed?: Yes Alcohol Intake: current Alcohol Intake frequency: 0-2 drinks per day Alcohol type: beer and wine Drug use: Never Substance use type: does not use Caregiver/Support person: No Household members: spouse and children Housing: house Number of Children: 4 Communication Needs: None Do you need help understanding health information?: Never current occupation: manager personnel selection Pets and animals: Yes Pets and animals: cat(s) and dog(s) Sexually active: No Do you think of yourself as: straight/heterosexual Current gender identity: female What is your relationship status?: How often do you talk on the phone with friends or family?: three or more times per week How often do you get together with friends or relatives?: three or more times per week How often do you attend confucianism or alevism services?: 1-3 times per year Do you belong to any clubs or organized social groups?: yes Panel score (0-1 are the most socially isolated patients): 3 What type of physical activity do you participate in: walking and other Details: golf Duration: 45-60 minutes/day Frequency: 3-4 times per week Lizy/Christian: Nondenominational Special lizy needs: No Seatbelt use: always Helmet use: Yes Helmet use: always Drive intox or ride w/intox otr company truck driver: No Do you feel safe at home: Yes Do you feel safe in your relationship?: Yes History History 7 Para 4 Hx # Term Pregnancies Multiple births Hx # Pregnancies Ectopic pregnancies AB induced Hx Number of Living Children AB spontaneous
[2024-09-04 18:13] LABS: Abs Immature Grans 0.03 10^3/uL (0.0-0.06); Absolute Basophil Count 0.05 10^3/uL (0.0-0.2); Absolute Lymphocyte Count 4.46 10^3/uL (1.2-3.4); Absolute Monocyte Count 0.54 10^3/uL (0.1-0.8); Absolute Neutrophil Count 4.74 10^3/uL (1.2-6.7); Basophils % 0.5 %; HCT 38.1 % (36.0-46.0); HGB 12.8 g/dL (11.2-15.7); Immature Grans % 0.3 %; Lymphocytes % 44.5 %; MCH 30.5 pg (27.0-33.0); MCHC 33.6 % (32.0-36.0); MCV 91 fL (80-95); Monocytes % 5.4 %; Neutrophils % 47.3 %; Platelet Count 381 10^3/uL (130-400); RDW 12.8 % (11.7-14.6); WBC 10.02 10^3/uL (4.4-10.8)
[2024-09-04 18:36] LABS: ALT 27 U/L (14-59); AST 25 U/L (15-37); Albumin 3.9 g/dL (3.4-5.0); Alkaline Phosphatase 128 U/L (46-116); Anion Gap 11.7 mmol/L (3-11); BUN 10 mg/dL (7-18); Bilirubin, Total 0.23 mg/dL (0.2-1.0); CO2 25.3 mmol/L (21.0-32.0); CREATININE 0.7 mg/dL (0.55-1.02); Calcium 9.6 mg/dL (8.5-10.1); Chloride 107 mmol/L (98-107); Estimated GFR 101.44 (mL/min/1.73m2); Glucose 98 mg/dL (74-106); Potassium 3.9 mmol/L (3.5-5.1); Sodium 144 mmol/L (136-145); Troponin I 5 ng/L (<or=51)
[2024-09-04 18:42] LABS: D-Dimer 258 ng/mlFEU (<500)
[2024-09-04 19:32] LABS: Troponin I 4 ng/L (<or=51)
== END 2024-09-04 19:19 | disposition home or self-care (01) ==
PROVIDERS: Emergency Provider Emergency Medicine; PCP Family Medicine
DX: R07.9 Chest pain, unspecified (principal); K21.9 Gastro-esophageal reflux disease without esophagitis
CPT/HCPCS: 80053; 93005; 99284; 71046; 83735; 84484; 85025; 85379; 93010; 99283

== ENCOUNTER 2024-10-06 07:56 | Outpatient (RCR) | payer OTHER, SELFPAY ==
--- NOTE | 2024-10-13 08:51 | W.HOLTRPT ---
Date of service: 10/13/24 Time of Service: 08:51 Holter Monitor Report Referring Provider:: Kati Rubio Indications:: Palpitations and tachycardia Holter Monitor Note: This is a 48-hour Holter monitor Rhythm throughout was sinus with an average heart rate of 90. Minimum was 62, maximum 133 There were very rare isolated atrial and ventricular ectopic beats There was no atrial fibrillation, no high-grade AV block, no pauses greater than 3 seconds Reported symptoms corresponded to sinus rhythm rate 101
== END 2024-10-21 23:59 | disposition home or self-care (01) ==
LOC: CARDOPNVT 07:56
PROVIDERS: PCP Family Medicine; Visit Provider Internal Medicine Cardiovascular Disease
DX: R00.0 Tachycardia, unspecified (principal)
CPT/HCPCS: 93225; 93226

== ENCOUNTER 2024-11-10 18:58 | Emergency (ER) | payer OTHER, SELFPAY ==
[2024-11-10] VITALS (22 sets, daily range): BP systolic 136–165; BP diastolic 77–106; PULSE 81–109; RESP 11–25; TEMP 36.8; O2SAT 97–99
--- NOTE | 2024-11-10 18:45 | RT.EKG_ITS ---
APPROVED REPORT Exam: Resting ECG Reason for Exam: chest pain Patient Location: E HR:108 bpm ECG Measurements Heart Rate 108 AXIS WV 167 P 65 QRSd 87 QRS 29 QT 351 T 81 QTc 471 Conclusion Sinus tachycardia...rate> 99 Left atrial enlargement...P, P'>60mS, <-0.15mV V1
--- NOTE | 2024-11-10 19:00 | DI.RAD_ITS ---
Exam(s) XR PORTABLE CHEST AP EXAM: XR PORTABLE CHEST AP CLINICAL HISTORY: Chest pain TECHNIQUE: 2D digital imaging was performed of the chest. One image was obtained. An AP view was ob tained. COMPARISON: CR XR CHEST 2V PA LATERAL from 09/04/2024 FINDINGS: MEDIASTINUM: Normal. HEART: Normal. PULMONARY VASCULATURE: Normal. LUNGS: Clear. PLEURAL SPACE: No pleural effusion or pneumothorax. BONE:Within normal limits for the patient's age. OTHER FINDINGS:Normal. IMPRESSION: No acute pulmonary findings. DATA REPOSITORY: RADIATION DOSE DELIVERED:
--- NOTE | 2024-11-10 19:18 | ED.GENADUL_ITS ---
Discharge Plan Disposition Patient Disposition: Home Condition: Stable Discharge Details Clinical Impression: Chest pain, Otitis media Primary Care Provider: Kati Rubio ED Provider: Antoinette Carpenter Home Meds and New Rx's Prescriptions: New amoxicillin-pot clavulanate 875-125 mg tablet 1 tab PO BID 5 Days Qty: 10 0RF Rx Instructions: Take 1 tablet by mouth twice daily for the next 5 days Continued magnesium oxide 250 mg magnesium tablet 250 mg PO QHS Kate with Turmeric capsule 1 cap PO DAILY albuterol sulfate [Proventil HFA] 90 mcg/actuation HFA aerosol inhaler 2 puff inhalation Q6H PRN (Reason: shortness of breath or wheezing) Qty: 8.5 0RF atorvastatin 10 mg tablet 5 mg PO DAILY Qty: 90 4RF multivitamin [Multi-Day] 1 EACH tablet 1 ea PO DAILY omeprazole magnesium [Prilosec OTC] 20 mg tablet,delayed release (DR/EC) 20 mg PO DAILY Qty: 90 3RF famotidine 20 mg tablet 20 mg PO QHS Qty: 90 0RF levothyroxine 50 mcg tablet 50 mcg PO DAILY Qty: 90 12RF bupropion HCl 150 mg tablet extended release 24 hr 150 mg PO QAM Qty: 90 4RF amlodipine 5 mg tablet 5 mg PO DAILY Qty: 90 6RF loratadine 10 mg Tablet 10 mg PO DAILY acetaminophen 650 mg Tablet Extended Release 1,300 mg PO BID ibuprofen [Advil] 200 mg Tablet 400 mg PO BID clobetasol [Temovate] 0.05 % ointment 1 applic topical BID PRN levocetirizine [Xyzal] 5 mg Tablet 5 mg PO DAILY Discharge Instructions Instructions: Chest Pain, Adult ED, Ear Infections in Adults (DC) Additional Instructions: At this time no evidence of acute heart injury or heart attack. No evidence for pneumonia or fluid in your lungs. No evidence for blood clot. At this time I am not sure what is causing your chest pain. This could be an inflammation of the connective tissue in between your ribs. You are negative for COVID flu and RSV. Please take Tylenol or Ibuprofen with food every 4-6 hours as needed for pain and swelling. You may also alternate ice and heat. Follow up with primary care provider in 3-5 days. Return to ED sooner if any worsening or concerns. Referrals: Kati Rubio MD, [place] [Primary Care Provider] - 3 days HPI General Mode of arrival: ambulatory . Date/Time Provider Initiated Documentation: 11/10/24 19:00 . Limitations to Documentation: no limitations . Information obtained by: patient, RN notes reviewed and old records reviewed . HPI Narrative: 54-year-old female presents to the ER with a chief complaint of chest pain which began around 3:30 PM while at work. She reports that since then it has gotten worse and is now radiating up into her left jaw, left ear and shoulder. She describes it as sharp pain that gets worse with deep breathing. Denies any nausea vomiting shortness of breath. She does report that last week she fell like she had a URI type symptoms. She does endorse some diarrhea, denies any leg swelling. She did take 400 mg of aspirin this morning and 400 mg this afternoon. Other past medical history include hypercholesterolemia, diverticulitis, recurrent pneumonia, right breast lumpectomy. She is BRCA positive. Related Data Home Medications ?Medication ?Instructions ?Recorded ?Confirmed multivitamin (Multi-Day tablet) 1 ea PO DAILY 06/22/13 11/10/24 albuterol sulfate 90 mcg/actuation 2 puff inhalation Q6H PRN 09/29/21 11/10/24 aerosol inhaler (Proventil HFA) shortness of breath or wheezing #8.5 grams loratadine 10 mg tablet 10 mg PO DAILY 06/09/22 11/10/24 acetaminophen 650 mg 1,300 mg PO BID 06/10/22 11/10/24 tablet,extended release clobetasol 0.05 % topical ointment 1 applic topical BID PRN 05/28/23 11/10/24 (Temovate) ibuprofen 200 mg tablet (Advil) 400 mg PO BID 05/28/23 11/10/24 levocetirizine 5 mg tablet (Xyzal) 5 mg PO DAILY 05/28/23 11/10/24 Kate with Turmeric 1 cap PO DAILY 07/12/23 11/10/24 magnesium oxide 250 mg PO QHS 07/12/23 11/10/24 omeprazole magnesium 20 mg 20 mg PO DAILY #90 tab-caps 10/12/23 11/10/24 tablet,delayed release (Prilosec OTC) famotidine 20 mg tablet 20 mg PO QHS #90 tabs 10/15/23 11/10/24 levothyroxine 50 mcg tablet 50 mcg PO DAILY #90 tab-caps 01/17/24 11/10/24 amlodipine 5 mg tablet 5 mg PO DAILY #90 tabs 01/19/24 11/10/24 bupropion HCl 150 mg 24 hr tablet, 150 mg PO QAM #90 tabs 01/19/24 11/10/24 extended release atorvastatin 10 mg tablet 5 mg (1/2 x 10 mg) PO DAILY #90 09/11/24 11/10/24 tabs amoxicillin 875 mg-potassium 1 tab PO BID otitis media 5 days 11/10/24 clavulanate 125 mg tablet #10 tabs Previous Rx's ?Medication ?Instructions ?Recorded albuterol sulfate 90 mcg/actuation 2 puff inhalation Q6H PRN 09/29/21 aerosol inhaler (Proventil HFA) shortness of breath or wheezing #8.5 grams omeprazole magnesium 20 mg 20 mg PO DAILY #90 tab-caps 10/12/23 tablet,delayed release (Prilosec OTC) famotidine 20 mg tablet 20 mg PO QHS #90 tabs 10/15/23 levothyroxine 50 mcg tablet 50 mcg PO DAILY #90 tab-caps 01/17/24 amlodipine 5 mg tablet 5 mg PO DAILY #90 tabs 01/19/24 bupropion HCl 150 mg 24 hr tablet, 150 mg PO QAM #90 tabs 01/19/24 extended release atorvastatin 10 mg tablet 5 mg (1/2 x 10 mg) PO DAILY #90 09/11/24 tabs amoxicillin 875 mg-potassium 1 tab PO BID otitis media 5 days 11/10/24 clavulanate 125 mg tablet #10 tabs Allergies Allergy/AdvReac Type Severity Reaction Status Date / Time fluconazole Allergy Intermediate TONGUE AND Verified 11/10/24 19:07 LIPS SWELLING latex Allergy RASH Verified 11/10/24 19:07 adhesive AdvReac Intermediate RASH Verified 11/10/24 19:07 venlafaxine HCl (From AdvReac NAUSEA Verified 11/10/24 19:07 Effexor) General Stated Complaint: Chest Pain LELE: 2 Review of Systems Cardiovascular Cardiovascular: Reports as per HPI, Reports chest pain and Reports radiating jaw, neck or arm pain Respiratory Respiratory: Reports pain on inspiration Exam Narrative Exam Narrative: Constitutional: Alert and oriented x3. Appears stated age. Normal body habitus. Head: Normocephalic, no trauma. Eyes: Pupils PERRL, Red reflex noted, EOM's intact. Eyelids symmetrical without lesions, discharge, or swelling. ENT: Left tympanic membrane slightly retracted and erythemic, external ear normal to inspection, no mastoid TTP, swelling, or erythema, Nasal turbinates WNL, no nasal discharge. Normal dentition, Posterior pharynx erythemic, no exudate. Chest: RRR, Normal S1, S2, distal pulses intact. Resp: Lungs clear to auscultation bilaterally, no wheezes, rales, or rhonchi. Abdomen: Soft, non-distended, Normoactive bowel sounds all 4 quads. Musculoskeletal: Normal gait, Moves all 4 extremities without difficulty. Skin: No suspicious rashes or lesions. Capillary refill less than 2 sec. Neurologic: Cranial nerves II-XII intact. Alert and oriented x 3. Motor: No deficits noted. Sensory: Intact bilaterally all 4 extremities. Hematologic/Lymphatic: No ecchymosis, no lymphadenopathy. Course Vital Signs Vital signs: Vital Signs Temperature 36.8 C 11/10/24 19:01 Pulse 109 H 11/10/24 19:01 Respiratory Rate 16 11/10/24 19:01 Blood Pressure 165/106 H 11/10/24 19:01 Pulse Oximetry 98 11/10/24 19:01 Temperature 36.8 C 11/10/24 19:01 Temperature Source Temporal Artery Scan 11/10/24 19:01 Pulse 109 H 11/10/24 19:01 Respiratory Rate 16 11/10/24 19:01 Blood Pressure 165/106 H 11/10/24 19:01 Blood Pressure Position Sitting 11/10/24 19:01 Pulse Oximetry 98 11/10/24 19:01 Oxygen Delivery Method Room Air 11/10/24 19:01 Oxygen Flow Rate 0 11/10/24 19:01 Pain Level 7 11/10/24 19:01 Medical Decision Making 54-year-old female presents to the ER with a chief complaint of chest pain which began around 3:30 PM while at work. She reports that since then it has gotten worse and is now radiating up into her left jaw, left ear and shoulder. She describes it as sharp pain that gets worse with deep breathing. Denies any nausea vomiting shortness of breath. She does report that last week she fell like she had a URI type symptoms. She does endorse some diarrhea, denies any leg swelling. She did take 400 mg of aspirin this morning and 400 mg this afternoon. Other past medical history include hypercholesterolemia, diverticulitis, recurrent pneumonia, right breast lumpectomy. She is BRCA positive. EKG was reviewed by Dr. Sheldon ER attending, old EKG available for review. Please see official report. Cardiac workup ordered including serial troponins, CBC CMP, D-dimer, chest x- ray. Patient complaining of worsening chest pain, she is now rating it 8 out of 10. She was given 15 mg of Toradol IV which did not improve her pain. Will give 2 mg of morphine IV and do a chest CT. White blood cell count is 16.7 with elevated neutrophil count. Chest CT is within normal limits. Discussed results with patient and family, she is requesting for me to look in her ear which is slightly erythemic and retracted on the left. Posterior oropharynx is also slightly erythemic. Will give 5 days of Augmentin for elevated white count and possible otitis media. Discussed follow-up with her PCP and her negative workup she verbalized understanding at this time. This text was generated using [employer]ation system, please disregard any oddities of phrase or misspellings. Medical Records Medical records reviewed: Yes I reviewed the patient's medical records. Imaging Data Radiologic Study: Imaging: X-Ray Radiologist's impression: TECHNIQUE: Imaging protocol: Radiologic exam of the chest. Views: 1 view. COMPARISON: CR XR CHEST 2V PA LATERAL 09/04/2024 6:34 PM FINDINGS: Lungs: Unremarkable. No consolidation. Pleural spaces: Unremarkable. No pleural effusion. No pneumothorax. Heart/Mediastinum: Unremarkable. No cardiomegaly. Bones/joints: Unremarkable. IMPRESSION: No acute findings. Thank you for allowing us to participate in the care of your patient. Dictated and Authenticated by: Marti Gayle MD Lab Data Lab results reviewed: Yes I reviewed the patient's lab results. Labs: Laboratory Tests Range/Units 11/10/24 11/10/24 11/10/24 19:20 20:18 20:43 WBC (4.4-10.8) 10^3/uL 16.77 H RBC (3.93-5.22) 10^6/uL 4.38 Hgb (11.2-15.7) g/dL 13.2 Hct (36.0-46.0) % 39.5 MCV (80-95) fL 90 MCH (27.0-33.0) pg 30.1 MCHC (32.0-36.0) % 33.4 RDW (11.7-14.6) % 12.7 Plt Count (130-400) 10^3/uL 399 MPV (8.0-11.0) fL 8.8 Immature Gran % % 0.0 Neutrophils % % 62.0 Lymphocytes % % 31.0 Atypical Lymphs % % 3 Monocytes % % 4.0 Eosinophils % % 0.0 Basophils % % 0.0 Nucleated RBC % (0.0-0.3) % 0.0 Absolute Neutrophils (1.2-6.7) 10^3/uL 10.40 H Absolute Lymphocytes (1.2-3.4) 10^3/uL 5.70 H Absolute Monocytes (0.1-0.8) 10^3/uL 0.67 Absolute Eosinophils (0.0-0.7) 10^3/uL 0.00 Absolute Basophils (0.0-0.2) 10^3/uL 0.00 RBC Morphology Normal D-Dimer (<500) ng/mlFEU 265 Sodium (136-145) mmol/L 143 Potassium (3.5-5.1) mmol/L 3.5 Chloride (98-107) mmol/L 105 Carbon Dioxide (21.0-32.0) mmol/L 29.2 Anion Gap (3-11) mmol/L 8.8 BUN (7-18) mg/dL 14 Creatinine (0.55-1.02) mg/dL 0.8 Est GFR (CKD-EPI 2020) (mL/min/1.73m2) 86.42 Glucose (74-106) mg/dL 98 Calcium (8.5-10.1) mg/dL 9.3 Magnesium (1.8-2.4) mg/dL 2.0 Total Bilirubin (0.2-1.0) mg/dL 0.19 L AST (15-37) U/L 22 ALT (14-59) U/L 23 Alkaline Phosphatase (46-116) U/L 143 H Troponin I (<or=51) ng/L 4 4 Total Protein (6.4-8.2) g/dL 8.4 H Albumin (3.4-5.0) g/dL 4.2 COVID-19 Source Nasopharynx SARS-CoV-2 (PCR) (Negative) Negative Influenza Type A (PCR) (Negative) Negative Influenza Type B (PCR) (Negative) Negative RSV (PCR) (Negative) Negative Quality:SDOH Health Related Social Needs: No Data to Display PFSH All Active Problems (Updated 11/10/24 @ 21:56 by Antoinette Carpenter NP) Otitis media (Acute) Chest pain (Acute) History of vulvectomy (Acute) Encounter for hepatitis C screening test for low risk patient (Acute) Reaction to food (Acute) Environmental allergies (Acute) Persistent lymphocytosis (Acute) Cervical pain (Acute) Recurrent sinus infections (Acute) Fatigue (Acute) 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) GERD (gastroesophageal reflux disease) (Chronic) IC (interstitial cystitis) (Chronic) Malignant neoplasm of right breast, stage 3 (Chronic) Stress incontinence of urine (Chronic 12/06/17) Tubular adenoma (Chronic) Hypothyroidism (Chronic) OUMAR II (vulvar intraepithelial neoplasia II) (Acute) Paresthesia of left foot (Acute) Carpal tunnel syndrome on both sides (Acute) Peripheral neuropathy (Acute) Spinal stenosis of lumbar region with radiculopathy (Acute) Encounter for annual physical exam (Acute) Medical History Fever Diverticulitis High cholesterol Vulvar irritation Shortness of breath Low immunoglobulin level Abnormal chest CT Encounter for screening for COVID-[address] Recurrent pneumonia Nicotine dependence, cigarettes, uncomplicated Cough Pigmented skin lesion Stress at home Sinusitis Chronic nasal congestion Fatigue Thickened endometrium Ulnar neuropathy Pain of right fibula (08/02/17) Malaise and fatigue Dizziness (07/05/17) Constipation Arthritis of hand Abnormal thyroid blood test (07/08/17) History of ectopic Chronic back pain Gastrointestinal problem Asthma BRCA negative Abnormal Pap smear of cervix Palliative care patient Surgical History History of esophagogastroduodenoscopy (~12/2023) Hx of tonsillectomy Normal colonoscopy (~12/2023) History of endometrial biopsy (~07/20/19) 07/20/19 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 Brother No problems noted. Son No problems noted. Son No problems noted. Son No problems noted. Daughter Essential hypertension Substance abuse Maternal Grandfather No problems noted. Paternal Grandfather , age 60ish No problems noted. Maternal Grandmother , age 60s No problems noted. Paternal Grandmother , age 70ish No problems noted. Social History Smoking/Tobacco Use Status: Current-Occasional Tobacco Type: cigarettes Tobacco: How many years used: 30 Quit status: has quit before Second Hand Exposure: Yes Smoking risk assessment performed?: Yes Alcohol Intake: current Alcohol Intake frequency: 0-2 drinks per day Alcohol type: beer and wine Drug use: Never Substance use type: does not use Caregiver/Support person: No Household members: spouse and children Housing: house Number of Children: 4 Communication Needs: None Do you need help understanding health information?: Never current occupation: online affiliate marketing manager Pets and animals: Yes Pets and animals: cat(s) and dog(s) Sexually active: No Do you think of yourself as: straight/heterosexual Current gender identity: female What is your relationship status?: How often do you talk on the phone with friends or family?: three or more times per week How often do you get together with friends or relatives?: three or more times per week How often do you attend congregational or druze services?: 1-3 times per year Do you belong to any clubs or organized social groups?: yes Panel score (0-1 are the most socially isolated patients): 3 What type of physical activity do you participate in: walking and other Details: golf Duration: 45-60 minutes/day Frequency: 3-4 times per week Lizy/Temple: Rastafarian Special lizy needs: No Seatbelt use: always Helmet use: Yes Helmet use: always Drive intox or ride w/intox drive away driver: No Do you feel safe at home: Yes Do you feel safe in your relationship?: Yes History History 7 Para 4 Hx # Term Pregnancies Multiple births Hx # Pregnancies Ectopic pregnancies AB induced Hx Number of Living Children AB spontaneous
[2024-11-10 19:26] LABS: HCT 39.5 % (36.0-46.0); HGB 13.2 g/dL (11.2-15.7); MCH 30.1 pg (27.0-33.0); MCHC 33.4 % (32.0-36.0); MCV 90 fL (80-95); MPV 8.8 fL (8.0-11.0); Platelet Count 399 10^3/uL (130-400); RBC 4.38 10^6/uL (3.93-5.22); RDW 12.7 % (11.7-14.6); RDW-SD 41.9 fL; WBC 16.77 10^3/uL (4.4-10.8)
[2024-11-10 19:40] LABS: Absolute Monocyte Count 0.67 10^3/uL (0.1-0.8); Atypical Lymphocytes % 3 %; Diff Comment Manual Differential; RBC Morphology Normal
[2024-11-10 19:45] LABS: ALT 23 U/L (14-59); AST 22 U/L (15-37); Albumin 4.2 g/dL (3.4-5.0); Alkaline Phosphatase 143 U/L (46-116); Anion Gap 8.8 mmol/L (3-11); BUN 14 mg/dL (7-18); Bilirubin, Total 0.19 mg/dL (0.2-1.0); CO2 29.2 mmol/L (21.0-32.0); CREATININE 0.8 mg/dL (0.55-1.02); Calcium 9.3 mg/dL (8.5-10.1); Chloride 105 mmol/L (98-107); Estimated GFR 86.42 (mL/min/1.73m2); Glucose 98 mg/dL (74-106); Potassium 3.5 mmol/L (3.5-5.1); Sodium 143 mmol/L (136-145); Total Protein 8.4 g/dL (6.4-8.2); Troponin I 4 ng/L (<or=51)
[2024-11-10 19:53] LABS: D-Dimer 265 ng/mlFEU (<500)
[2024-11-10] MEDS: Ketorolac 15 MG/ML VIAL IVP (20:10)
[2024-11-10] MEDS: Normal Saline Flush 10 ML SYR IVP (20:11)
[2024-11-10 20:59] LABS: COVID-19 PCR Negative (Negative); Influenza A PCR Negative (Negative); Influenza B PCR Negative (Negative); RSV PCR Negative (Negative)
[2024-11-10 21:01] LABS: Source Nasopharynx
[2024-11-10 21:04] LABS: Troponin I 4 ng/L (<or=51)
[2024-11-10] MEDS: MORPHine 10 MG/ML VIAL 2 MG IVP (21:12)
--- NOTE | 2024-11-10 21:23 | DI.VRAD_ITS ---
PROCEDURE INFORMATION: Exam: XR Chest Exam date and time: 11/10/2024 7:46 PM Age: 54 years old Clinical indication: Other: Chest pain TECHNIQUE: Imaging protocol: Radiologic exam of the chest. Views: 1 view. COMPARISON: CR XR CHEST 2V PA LATERAL 09/04/2024 6:34 PM FINDINGS: Lungs: Unremarkable. No consolidation. Pleural spaces: Unremarkable. No pleural effusion. No pneumothorax. Heart/Mediastinum: Unremarkable. No cardiomegaly. Bones/joints: Unremarkable. IMPRESSION: No acute findings. Dictated and Authenticated by: Marti Gayle MD. Ordering:ANJELICA Curry MD
--- NOTE | 2024-11-10 21:41 | DI.CT_ITS ---
Exam(s) CT CHEST WO EXAM: CT CHEST WO CLINICAL HISTORY: Chest Pain. TECHNIQUE: Imaging protocol: Axial computed tomography images were obtained and coronal and sagittal reformatted images were created and reviewed. Lung Computer Aided Detection (CAD) was utilized. COMPARISON: CT CT CHEST WO from 08/17/2022 FINDINGS: There is mild patient motion artifact. Tracheobronchial tree: Patent where visualized. No bronchiectasis is present. Pulmonary parenchyma: There is scarring in the right lung apex. Mild emphysematous changes are seen in the lungs. No focal consolidating infiltrates are present. No pulmonary nodules are present. Mediastinum and Carola: No dominant adenopathy or fluid collection. The esophagus is unremarkable. Thyroid gland: Unremarkable. Pleura: No effusion or pneumothorax. Heart: The heart is not dilated. Three vessel coronary artery calcification is present. No pericardi al effusion. Aorta: Thoracic aorta non-dilated. Atherosclerotic calcification is present. Upper abdomen: Status post cholecystectomy. Lymph nodes: Within normal limits. Soft tissues: Unremarkable. Bones:Within normal limits for the patient's age. IMPRESSION: Pulmonary scarring seen in the right lung apex. No focal consolidating infiltrates are seen. RADIATION DOSE DELIVERED: 153.83mGy.cm Total DLP 153.83mGy.cm Total DLP DATA REPOSITORY: All CT scans at this facility are submitted to the National Radiology Data Registry (NRDR) Dose Index Registry (DIR) with the [employer] (ACR). RADIATION OPTIMIZATION: All CT scans at this facility use at least one of these dose optimization te chniques: automated exposure control; mA and/or kV adjustment per patient size (includes targeted exa ms where dose is matched to clinical indication); or iterative reconstruction.
--- NOTE | 2024-11-10 21:48 | DI.VRAD_ITS ---
PROCEDURE INFORMATION: Exam: CT Chest Without Contrast; Diagnostic Exam date and time: 11/10/2024 9:34 PM Age: 54 years old Clinical indication: Chest pressure; Patient HX: Chest pain TECHNIQUE: Imaging protocol: Diagnostic computed tomography of the chest without contrast. 3D rendering (Not supervised by radiologist): MIP and/or 3D reconstructed images were created by the technologist. Radiation optimization: All CT scans at this facility use at least one of these dose optimization techniques: automated exposure control; mA and/or kV adjustment per patient size (includes targeted exams where dose is matched to clinical indication); or iterative reconstruction. COMPARISON: CT CHEST WO 08/17/2022 1:04 PM FINDINGS: Thyroid: No thyroid lesions. No thyroid enlargement. Trachea: The central airways clear. Lungs: No focal consolidation or other acute appearing pulmonary opacity. Pleural spaces: Unremarkable. No pneumothorax. No pleural effusion. Heart: No cardiomegaly or pericardial effusion. Coronary arteries: No coronary calcifications. Lymph nodes: No axillary adenopathy. Vasculature: Unremarkable. No aortic aneurysm. Bones/joints: No acute osseous abnormality. Soft tissues: Soft tissues are unremarkable as visualized. IMPRESSION: No acute findings Dictated and Authenticated by: Marti Gayle MD. Ordering:ANJELICA Curry MD
[2024-11-10] MEDS: Amoxicillin 875/Clav. 125 TAB PO (22:03)
[2024-11-10] MEDS: Amox. 875/Clav. 125, 2 TABS/BTL 1 TAB PO (22:03)
== END 2024-11-10 22:08 | disposition home or self-care (01) ==
PROVIDERS: Emergency Provider Registered Nurse Emergency; PCP Family Medicine
DX: R07.9 Chest pain, unspecified (principal); H66.92 Otitis media, unspecified, left ear
CPT/HCPCS: 36415; 71250; 80053; 87637; 93005; 96374; 96375; 99285; 71045; 83735; 84484; 85025; 85379; 93010; J1885; J2270

== ENCOUNTER 2024-11-24 21:56 | Outpatient (REF) | payer OTHER, SELFPAY ==
[2024-11-24 21:56] LABS: HGB 12.9 g/dL (11.2-15.7); MCH 31.1 pg (27.0-33.0); MCHC 33.9 % (32.0-36.0); MCV 92 fL (80-95); Platelet Count 478 10^3/uL (130-400); RBC 4.15 10^6/uL (3.93-5.22); RDW 13.7 % (11.7-14.6); RDW-SD 46.3 fL; WBC 14.89 10^3/uL (4.4-10.8)
[2024-11-24 22:09] LABS: Mono Screening Negative (Negative)
[2024-11-24 22:10] LABS: Absolute Monocyte Count 0.74 10^3/uL (0.1-0.8); Absolute Neutrophil Count 7.15 10^3/uL (1.2-6.7); Diff Comment Manual Differential; RBC Morphology Normal
[2024-11-24 22:27] LABS: ALT 18 U/L (14-59); AST 13 U/L (15-37); Albumin 3.7 g/dL (3.4-5.0); Alkaline Phosphatase 99 U/L (46-116); Anion Gap 8.5 mmol/L (3-11); BUN 17 mg/dL (7-18); Bilirubin, Total 0.35 mg/dL (0.2-1.0); CO2 28.5 mmol/L (21.0-32.0); CREATININE 0.7 mg/dL (0.55-1.02); Calcium 9.5 mg/dL (8.5-10.1); Chloride 106 mmol/L (98-107); Estimated GFR 101.44 (mL/min/1.73m2); Glucose 96 mg/dL (74-106); Potassium 4.2 mmol/L (3.5-5.1); Sodium 143 mmol/L (136-145); Total Protein 6.6 g/dL (6.4-8.2)
[2024-11-24 22:29] LABS: Calculated LDL 74 mg/dL (<100); Cholesterol 184 mg/dL (<200); HDL Cholesterol 63 mg/dL (40-60); Triglyceride 239 mg/dL (<150)
== END 2024-11-24 21:57 | disposition home or self-care (01) ==
LOC: LBN 21:56
PROVIDERS: PCP Family Medicine; Visit Provider Nurse Practitioner Family
DX: R59.0 Localized enlarged lymph nodes (principal); D72.820 Lymphocytosis (symptomatic); I10 Essential (primary) hypertension; H66.90 Otitis media, unspecified, unspecified ear
CPT/HCPCS: 80053; 80061; 85025; 86308

== ENCOUNTER 2025-01-19 16:40 | Outpatient (CLI) | payer OTHER, SELFPAY ==
--- NOTE | 2025-01-19 12:00 | DI.RAD_ITS ---
Exam(s) XR TIB/FIB LT XR KNEE LT 3V AP,LAT,SRINIVASA EXAM: XR KNEE LT 3V AP,LAT,SRINIVASA and XR tib/fib LT CLINICAL HISTORY: W19.XXXA Unspecified fall,large bruise. TECHNIQUE: 2D digital imaging was performed of the left tib/fib and knee. Five images were obtained . AP, lateral and PA tunnel views were obtained. COMPARISON: CR LEFT ANKLE COMPLETE from 09/15/2012 FINDINGS: BONES: No acute fracture is present. No bony destructive lesion is seen. JOINTS: The knee is normally aligned. No joint effusion is seen. Visualized portions of the ankle are unremarkable. SOFT TISSUE: Mild soft tissue swelling medial to the proximal tibia. No radiopaque foreign body or s oft tissue gas is appreciated. IMPRESSION: No acute fracture or dislocation. DATA REPOSITORY: RADIATION DOSE DELIVERED:
== END 2025-01-19 17:00 ==
LOC: DI 16:41
PROVIDERS: PCP Family Medicine; Visit Provider Family Medicine
DX: W19.XXXA Unspecified fall, initial encounter (principal); S80.12XA Contusion of left lower leg, initial encounter
CPT/HCPCS: 73562; 73590

== ENCOUNTER 2025-02-08 08:29 | Outpatient (CLI) | payer OTHER, SELFPAY ==
[2025-02-08 12:25] LABS: Abs Immature Grans 0.04 10^3/uL (0.0-0.06); Absolute Basophil Count 0.07 10^3/uL (0.0-0.2); Absolute Eosinophil Count 0.34 10^3/uL (0.0-0.7); Absolute Lymphocyte Count 3.59 10^3/uL (1.2-3.4); Absolute Monocyte Count 0.77 10^3/uL (0.1-0.8); Absolute Neutrophil Count 5.88 10^3/uL (1.2-6.7); Basophils % 0.7 %; Eosinophils % 3.2 %; HGB 12.8 g/dL (11.2-15.7); Immature Grans % 0.4 %; Lymphocytes % 33.6 %; MCHC 33.7 % (32.0-36.0); MCV 92 fL (80-95); MPV 9.5 fL (8.0-11.0); Monocytes % 7.2 %; Neutrophils % 54.9 %; Platelet Count 425 10^3/uL (130-400); RBC 4.13 10^6/uL (3.93-5.22); RDW 12.9 % (11.7-14.6); RDW-SD 43.5 fL; WBC 10.69 10^3/uL (4.4-10.8)
[2025-02-08 17:58] LABS: Rheumatoid Factor <8.6 IU/mL (<12.0)
[2025-02-09 08:15] LABS: Cyclic Citrullinated Peptide <2.5 U/mL (<5.0)
[2025-02-09 14:54] LABS: ANA Interpretation Negative (Negative)
== END 2025-02-08 08:30 | disposition home or self-care (01) ==
LOC: LOS 08:29
PROVIDERS: PCP Family Medicine; Referring Provider Family Medicine; Visit Provider Family Medicine
DX: D72.829 Elevated white blood cell count, unspecified
CPT/HCPCS: 36415; 86200; 84550; 85025; 86038; 86431

== ENCOUNTER 2025-06-29 11:11 | Emergency (ER) | payer BC, SELFPAY ==
[2025-06-29] VITALS (14 sets, daily range): BP systolic 112–167; BP diastolic 62–96; PULSE 83–98; RESP 10–22; TEMP 36.9; O2SAT 96–99
--- NOTE | 2025-06-29 11:00 | RT.EKG_ITS ---
APPROVED REPORT Exam: Resting ECG Reason for Exam: chest pain Patient Location: E HR:94 bpm ECG Measurements Heart Rate 94 AXIS VA 132 P 24 QRSd 85 QRS 6 QT 365 T 11 QTc 456 Conclusion Sinus rhythm...normal P axis, V-rate 60- 99 Consider left ventricular hypertrophy...(R aVL+S V3) >2.20mV No Occlusion NH
--- NOTE | 2025-06-29 11:14 | W.ED.GENAD ---
Discharge Plan Disposition Patient Disposition: Home Discharge Details Clinical Impression: Chest pain, unspecified Primary Care Provider: Kati Rubio ED Provider: Nilesh Garcia Home Meds and New Rx's Prescriptions: Continued magnesium oxide 250 mg magnesium tablet 250 mg PO QHS Kate with Turmeric capsule 1 cap PO DAILY albuterol sulfate [Proventil HFA] 90 mcg/actuation HFA aerosol inhaler 2 puff inhalation Q6H PRN (Reason: shortness of breath or wheezing) Qty: 8.5 0RF multivitamin [Multi-Day] 1 EACH tablet 1 ea PO DAILY omeprazole magnesium [Prilosec OTC] 20 mg tablet,delayed release (DR/EC) 20 mg PO DAILY Qty: 90 3RF prednisone 20 mg tablet See Rx Instructions PO DAILY Qty: 11 0RF Rx Instructions: 2 tabs daily for 3 days; 1 tab daily for 3 days; 0.5 tab daily for 4 days levofloxacin 500 mg tablet 500 mg PO DAILY Qty: 7 0RF amlodipine 5 mg tablet 5 mg PO DAILY Qty: 90 6RF levothyroxine 50 mcg tablet 50 mcg PO DAILY Qty: 90 12RF bupropion HCl 150 mg tablet extended release 24 hr 150 mg PO QAM Qty: 90 3RF loratadine 10 mg Tablet 10 mg PO DAILY acetaminophen 650 mg Tablet Extended Release 1,300 mg PO BID ibuprofen [Advil] 200 mg Tablet 400 mg PO BID clobetasol [Temovate] 0.05 % ointment 1 applic topical BID PRN levocetirizine [Xyzal] 5 mg Tablet 5 mg PO DAILY Discharge Instructions Additional Instructions: You are seen in the emergency department for chest pain. As we discussed your blood work showed no sign of any heart attack nor any sign of any blood clot in your lungs. Your CAT scan did not show any significant abnormalities that corresponded to the area seen on your chest x-ray. This is reassuring. As we discussed if you develop shortness of breath chest pain associate with any sweating if you pass out or if you have any other concerns please return to the emergency department. Please touch base with your primary care provider concerning possibility of stress testing to assess for your risk of heart disease. HPI General Date/Time Provider Initiated Documentation: 06/29/25 11:14. HPI Narrative: MDM This is an overall very well-appearing normothermic and not tachycardic 55-year-old female with chest pain a for which patient will undergo assessment and monitoring for ACS, and PE with dimer testing. ECG showing sinus rhythm at a rate of 94. Narrow complex. Intervals within normal limits. No acute injury pattern. No vomiting to suggest increased risk for esophageal rupture. No rash to chest to suggest zoster. No trauma to chest to suggest pneumothorax. No tearing quality to suggest aortic dissection. Patient is not a dialysis patient and has had no recent cardiac procedure so my suspicion for tamponade is low. No fevers no cough to suggest pneumonia. Patient is on warfarin and has not had leg swelling, suspicion is low for PE. Nonetheless she is not PERC negative so we will send a D-dimer. She has reported decreased EF however she has no significant lower extremity pitting edema that is not hypoxic so I am not suspicious for acute heart failure. Will treat with aspirin. Patient does have ongoing chest pain so we will treat with nitroglycerin. Patient does have family history hypertension and hyperlipidemia as risk factors. HEART SCORE Chest pain Diagnostic Protocol: [-History/Physical/Gestalt: Slightly Suspicious (0)] [-EKG: Normal and/or unchanged from prior EKG (0)] [- AGE: 45-65 (+1)] [- RISK FACTORS: 3 or more risk factors and/or known CAD (+2)] [-TROPONIN: <= normal limit (0)] - TOTAL SCORE: 3 - Risk Factors: DM, current or recent smoker, HTN, HLD, family hx of CAD, obesity - INTERPRETATION: With a total score of 3 or less, risk of major cardiac event within six weeks 1.7%, likely lower with two negative troponins. [I explained to the patient that the risk of subsequent major cardiac event within 1 month is not 0, however risk predicted to be less than 2%. Patient verbalized understanding, accepts this risk and shared and the decision for discharge with PCP follow-up for further evaluation and management. They understand to return to the ED immediately with any worsening symptoms, new symptoms or other concerns.] 12:25 PM Reassuring initial troponin. Comprehensive metabolic panel with no SHAWNA. Mild hyperglycemia but normal anion gap and normal bicarbonate?test not consistent with DKA. CBC noteworthy for new leukocytosis. Of note patient has not infrequently had leukocytosis in the past. Negative D-dimer. 2:25 PM Patient had an abnormal x-ray with some nodular densities for which she underwent a CT scan this was reassuring with no significant abnormalities. Repeat troponin stable. Reassuring delta. I discussed with her at length whether or not to keep her in the hospital versus discharge her with PCP follow-up. I advised that there was some risks of discharge in terms of whether or not she may be having a process going on her heart or her chest. I advised her that we could keep her overnight trend troponins and in 2 days obtain a stress test. Her preference was to go home. She understood these risks. We discussed that she should return if she develops any worsened chest pain any syncope any fevers or any diaphoresis associated with her pain. She understood her return indications and was discharged with an empiric trial of expectant outpatient management. HPI This is a patient with a history of high cholesterol and high blood pressure presenting with chest pain. The patient experienced severe left-sided chest pain upon waking up this morning at approximately 8:39 AM. Initially, she attributed the pain to an uncomfortable sleeping position. The pain is described as a pressure sensation in the middle of her chest during deep breaths, accompanied by earache and general discomfort on the left side. She reports feeling nauseous but has not vomited. She also reports mild shortness of breath. The patient recalls a similar episode of chest pain in 10/2024, which was later diagnosed as a severe sinus and ear infection. She recently returned from a trip to [place]. The patient has high cholesterol but is not currently on medication due to adverse reactions. She is scheduled for blood work in 08/2025. She also has high blood pressure. She reports no recent falls or chest trauma, no chest rash, and no abdominal pain. She is unaware of any history of blood clots in her legs or lungs. She does note that she was bit by a bee yesterday evening in the back of her left leg. Exam General: Well-appearing in no acute distress speaking in complete sentences. Head: Normocephalic, atraumatic. Eye: Extraocular eye movements intact. No conjunctival injection. No scleral icterus. Ear, nose, mouth, throat: Grossly normal inspection. Normal voice, handling secretions normally. Neck: Trachea midline. Cardiovascular: Well-perfused distal extremities. Regular rate and rhythm Respiratory: Nonlabored respiration. Clear lungs bilaterally Gastrointestinal: Nondistended abdomen. Musculoskeletal: No significant lower extremity pitting edema. Moving all 4 extremities spontaneously. No calf tenderness bilaterally. Just superior to the knee on left posterior lower extremity there is a small approximately 3 mm erythematous area consistent with history of recent hymenoptera sting. No fluctuance. No significant erythema. No streaking signs of infection. Skin: Normal for age and race, grossly normal temperature and turgor. No acute rash. Neurologic: Alert and appropriate, no apparent acute deficits. Psychiatric: Mood and manner are appropriate. Grooming and personal hygiene are appropriate. Related Data Home Medications ?Medication ?Instructions ?Recorded ?Confirmed multivitamin (Multi-Day tablet) 1 ea PO DAILY 06/22/13 06/29/25 albuterol sulfate 90 mcg/actuation 2 puff inhalation Q6H PRN 09/29/21 06/29/25 aerosol inhaler (Proventil HFA) shortness of breath or wheezing #8.5 grams loratadine 10 mg tablet 10 mg PO DAILY 06/09/22 06/29/25 acetaminophen 650 mg 1,300 mg PO BID 06/10/22 06/29/25 tablet,extended release clobetasol 0.05 % topical ointment 1 applic topical BID PRN 05/28/23 06/29/25 (Temovate) ibuprofen 200 mg tablet (Advil) 400 mg PO BID 05/28/23 06/29/25 levocetirizine 5 mg tablet (Xyzal) 5 mg PO DAILY 05/28/23 06/29/25 Kate with Turmeric 1 cap PO DAILY 07/12/23 06/29/25 magnesium oxide 250 mg PO QHS 07/12/23 06/29/25 omeprazole magnesium 20 mg 20 mg PO DAILY #90 tab-caps 10/12/23 06/29/25 tablet,delayed release (Prilosec OTC) levofloxacin 500 mg tablet 500 mg PO DAILY #7 tabs 03/05/25 06/29/25 prednisone 20 mg tablet See Rx Instructions PO DAILY #11 03/05/25 06/29/25 tabs amlodipine 5 mg tablet 5 mg PO DAILY #90 tabs 04/09/25 06/29/25 levothyroxine 50 mcg tablet 50 mcg PO DAILY #90 tab-caps 04/09/25 06/29/25 bupropion HCl 150 mg 24 hr tablet, 150 mg PO QAM #90 tabs 04/23/25 06/29/25 extended release Previous Rx's ?Medication ?Instructions ?Recorded albuterol sulfate 90 mcg/actuation 2 puff inhalation Q6H PRN 09/29/21 aerosol inhaler (Proventil HFA) shortness of breath or wheezing #8.5 grams omeprazole magnesium 20 mg 20 mg PO DAILY #90 tab-caps 10/12/23 tablet,delayed release (Prilosec OTC) levofloxacin 500 mg tablet 500 mg PO DAILY #7 tabs 03/05/25 prednisone 20 mg tablet See Rx Instructions PO DAILY #11 03/05/25 tabs amlodipine 5 mg tablet 5 mg PO DAILY #90 tabs 04/09/25 levothyroxine 50 mcg tablet 50 mcg PO DAILY #90 tab-caps 04/09/25 bupropion HCl 150 mg 24 hr tablet, 150 mg PO QAM #90 tabs 04/23/25 extended release Allergies Allergy/AdvReac Type Severity Reaction Status Date / Time fluconazole Allergy Intermediate TONGUE AND Verified 06/29/25 11:19 LIPS SWELLING latex Allergy RASH Verified 06/29/25 11:19 atorvastatin AdvReac Severe Dizziness/L Verified 06/29/25 11:19 ighthead adhesive AdvReac Intermediate RASH Verified 06/29/25 11:19 venlafaxine HCl (From AdvReac NAUSEA Verified 06/29/25 11:19 Effexor) General LELE: 2 PFSH All Active Problems (Updated 06/29/25 @ 14:27 by Nilesh Garcia MD) Chest pain, unspecified (Acute) Elevated WBC count (Acute) Leg pain, left (Acute) Fall (Acute) Posterior cervical lymphadenopathy (Acute) History of vulvectomy (Acute) Encounter for hepatitis C screening test for low risk patient (Acute) Reaction to food (Acute) Environmental allergies (Acute) Persistent lymphocytosis (Acute) Cervical pain (Acute) Recurrent sinus infections (Acute) Fatigue (Acute) 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 Garcia 06/2019. Surveillance colposcopy of the vulva every 6 months. Paresthesia of left foot (Acute) Carpal tunnel syndrome on both sides (Acute) Peripheral neuropathy (Acute) Spinal stenosis of lumbar region with radiculopathy (Acute) Encounter for annual physical exam (Acute) Medical History (Updated 06/29/25 @ 14:27 by Nilesh Garcia MD) Fever Diverticulitis High cholesterol Vulvar irritation Shortness of breath Low immunoglobulin level Abnormal chest CT Encounter for screening for COVID-[address] Recurrent pneumonia Nicotine dependence, cigarettes, uncomplicated Cough Pigmented skin lesion Stress at home Sinusitis Chronic nasal congestion Fatigue Thickened endometrium Ulnar neuropathy Pain of right fibula (08/02/17) Malaise and fatigue Dizziness (07/05/17) Constipation Arthritis of hand Abnormal thyroid blood test (07/08/17) History of ectopic Chronic back pain Gastrointestinal problem Asthma BRCA negative Abnormal Pap smear of cervix Palliative care patient Surgical History History of esophagogastroduodenoscopy (~12/2023) Hx of tonsillectomy Normal colonoscopy (~12/2023) History of endometrial biopsy (~07/20/19) 07/20/19 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 Brother No problems noted. Son No problems noted. Son No problems noted. Son No problems noted. Daughter Essential hypertension Substance abuse Maternal Grandfather No problems noted. Paternal Grandfather , age 60ish No problems noted. Maternal Grandmother , age 60s No problems noted. Paternal Grandmother , age 70ish No problems noted. 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 Pets and animals: Yes Pets and animals: cat(s) and dog(s) Sexually active: No Do you think of yourself as: straight/heterosexual Current gender identity: female What is your relationship status?: How often do you talk on the phone with friends or family?: three or more times per week How often do you get together with friends or relatives?: three or more times per week How often do you attend hinduism or congregational services?: 1-3 times per year Do you belong to any clubs or organized social groups?: yes Panel score (0-1 are the most socially isolated patients): 3 What type of physical activity do you participate in: walking and other Details: golf Duration: 45-60 minutes/day Frequency: 3-4 times per week Lizy/Latter Day: Anabaptist Special lizy needs: No Seatbelt use: always Helmet use: Yes Helmet use: always Drive intox or ride w/intox tractor sweeper driver: No Do you feel safe at home: Yes Do you feel safe in your relationship?: Yes History History 7 Para 4 Hx # Term Pregnancies Multiple births Hx # Pregnancies Ectopic pregnancies AB induced Hx Number of Living Children AB spontaneous
[2025-06-29 11:39] LABS: Abs Immature Grans 0.06 10^3/uL (0.0-0.06); HCT 38.0 % (36.0-46.0); HGB 13.0 g/dL (11.2-15.7); Immature Grans % 0.4 %; MCH 30.5 pg (27.0-33.0); MCHC 34.2 % (32.0-36.0); MCV 89 fL (80-95); MPV 9.2 fL (8.0-11.0); Platelet Count 378 10^3/uL (130-400); RBC 4.26 10^6/uL (3.93-5.22); RDW 12.8 % (11.7-14.6); RDW-SD 42.1 fL; WBC 15.47 10^3/uL (4.4-10.8)
[2025-06-29] MEDS: Ondansetron 4 MG/2 ML VIAL IVP (11:44)
[2025-06-29] MEDS: Aspirin 81 MG CHEW 324 MG CH (11:45)
[2025-06-29] MEDS: nitroGLYcerin 0.4 MG TAB SL ×3 (11:45→12:14)
[2025-06-29] MEDS: Famotidine 20 MG/2 ML VIAL 40 MG IVP (11:45)
[2025-06-29 12:04] LABS: ALT 26 U/L (14-59); AST 22 U/L (15-37); Albumin 4.0 g/dL (3.4-5.0); Alkaline Phosphatase 149 U/L (46-116); Anion Gap 9.0 mmol/L (3-11); BUN 13 mg/dL (7-18); Bilirubin, Total 0.4 mg/dL (0.2-1.0); CO2 28.0 mmol/L (21.0-32.0); Calcium 9.4 mg/dL (8.5-10.1); Chloride 104 mmol/L (98-107); Estimated GFR 109.33 (mL/min/1.73m2); Glucose 116 mg/dL (74-106); Potassium 3.7 mmol/L (3.5-5.1); Sodium 141 mmol/L (136-145); Total Protein 7.7 g/dL (6.4-8.2); Troponin I 6 ng/L (<or=51)
[2025-06-29 12:06] LABS: D-Dimer 249 ng/mlFEU (<500)
--- NOTE | 2025-06-29 12:51 | DI.RAD_ITS ---
Exam(s) XR CHEST 2V PA LATERAL EXAM: XR CHEST 2V PA LATERAL CLINICAL HISTORY: Chest pain. TECHNIQUE: 2D digital imaging was performed. COMPARISON: CR,XR XR PORTABLE CHEST AP from 11/10/2024 FINDINGS: 2 views: Heart size is normal. The mediastinum is not widened. There are no pulmonary infiltrates nor pleural effusions. No pulmonary edema. However, on the lateral view there is a noncalcified nodular density projected over the anterior aspect of the heart measuring approximately 9 x 7 mm. This may correspond to a similar size finding in the right parahilar region on the frontal view.. IMPRESSION: No infiltrates nor pleural effusions. However, there is a small noncalcified nodular density seen anteriorly on the lateral view either in the right upper lobe anterior segment or left upper lobe. If clinically indicated follow-up CT scan can be performed. DATA REPOSITORY: RADIATION DOSE DELIVERED:
[2025-06-29 12:56] LABS: Troponin I 5 ng/L (<or=51)
--- NOTE | 2025-06-29 13:00 | DI.CT_ITS ---
Exam(s) CT CHEST WO EXAM: CT CHEST WO CLINICAL HISTORY: Abnormal x-ray. TECHNIQUE: Multi planar reconstructions were performed. CONTRAST MATERIAL: None COMPARISON: No exams were available for comparison FINDINGS: CHEST: LUNGS: There are no confluent infiltrates nor pleural effusions. Some scarring in the right lung apex is noted; none in the left lung apex. There is no evidence of lung nodule to correspond to what is mentioned on the lateral chest x-ray of earlier today. There is some asymmetric pleural based fat anteriorly on the left side but without and concerning lung nodule this level. There are no significant findings in the trachea and mainstem bronchi. No bronchiectasis. MEDIASTINUM: There is no obvious hilar nor mediastinal adenopathy. No supraclavicular adenopathy. No axillary adenopathy. CARDIAC: Heart size is normal. There is no pericardial effusion.Caliber of the thoracic aorta is within normal limits. VISUALIZED UPPER ABDOMEN:No adrenal masses. No splenomegaly. Gallbladder surgically absent. OSSEOUS: No significant osseous lesions.No fractures.. IMPRESSION: 1. No significant focal lung findings. There is nothing on CT scan to correspond to the finding described on the recent lateral chest x-ray. Called by myself to ER 8/hs 25 at 2:10 p.m. RADIATION DOSE DELIVERED: 129.16mGy.cm Total DLP DATA REPOSITORY: All CT scans at this facility are submitted to the National Radiology Data Registry (NRDR) Dose Index Registry (DIR) with the [employer] (ACR). RADIATION OPTIMIZATION: All CT scans at this facility use at least one of these dose optimization techniques: automated exposure control; mA and/or kV adjustment per patient size (includes targeted exams where dose is matched to clinical indication); or iterative reconstruction.
== END 2025-06-29 14:44 | disposition home or self-care (01) ==
PROVIDERS: Emergency Provider Emergency Medicine; PCP Family Medicine
DX: R07.9 Chest pain, unspecified (principal); R06.02 Shortness of breath; E11.9 Type 2 diabetes mellitus without complications; I10 Essential (primary) hypertension; E78.5 Hyperlipidemia, unspecified
CPT/HCPCS: 99285; 99284; 96374; 96375; 71250; 80053; 93005; 71046; 84484; 85025; 85379; 93010; J2405

== ENCOUNTER 2025-07-16 03:05 | Outpatient (CLI) | payer BC, SELFPAY ==
--- NOTE | 2025-07-16 06:15 | ETT_ITS ---
APPROVED REPORT Exam: Exercise Treadmill Patient Location: Out-Patient Room/Bed: Stress Nurse: Tatyana Downs RN, Neva Muhammad RN Ordering Provider:ELIF DIAZ, Contact Number: BMI: 23.02 Baseline Rhythm: Sinus Rhythm Indications: Chest pain Medical History Medical History: hypothyroidism, HTN, HLD, Smoker,GERD, neoplasm of breast Cardiac Medications: albuterol, amlodipine, bupropion, lexapro, famotidine, xyzal, levothyroxine, mag oxide, omeprazole Allergies: fluconazole, latex, atorvastatin adhesive, effexor Cardiac Risk Factors: family hx, htn, HLD, smoker Previous Cardiac Procedures: none Pretest Chest Pain Characteristics: none Exercise History: Physically active Physical Disabilities: none Lung Sounds: clear Heart Sounds: regular Stress Test Details Test: Exercise stress testing was performed using a Reyes protocol. Rest Stress HR Resting HR Supine: 88 bpm Max Heart Rate (APMHR): 163 bpm Resting HR Standin bpm Target HR (85% APMHR): 139 bpm Max HR Achieved: 154 bpm % of APMHR: 94 Recovery HR: 96 bpm HR response to stress: Normal HR response to stress BP Resting BP Supine: 124/80 mmHg Resting BP Standin/90 mmHg Max BP: 180/72 mmHg Recovery BP: 122/80 mmHg BP response to stress: Normal blood pressure response to stress. ECG Resting ECG: Sinus Rhythm Ectopy: none Stress ECG: Sinus Tachycardia ST Change: No significant ST segment changes noted Arrhythmia: rare pvcs Recovery ECG: Sinus Rhythm Recovery ST Change: No significant ST segment changes noted Recovery Arrhythmia: None Clinical Reason for Termination: Fatigue, patient requested to stop Stress Symptoms: General Fatigue Exercise duration: 6 min47 sec Highest Stage Reached: Stage 3: 3.4 mph at 14% grade. Exercise capacity: 8.26 METs Angina Score: none Webber Treadmill Score: 6.4 Rate Pressure Product: [id number] Stress ECG Conclusion 1. Resting electrocardiogram was normal 2. Patient exercised on the Reyes protocol and completed workload of 8.26 METS 3. Normal heart rate and blood pressure response to exercise. The patient achieved 94% of maximal predicted heart rate for age 4. There was no electrocardiographic evidence of myocardial ischemia 5. There were no significant dysrhythmias Webber Treadmill Score is 6.4 which is Low risk. Stress Test Summary STAGE Time (mins) Speed (mph) Grade (%) HR BP SpO2 SYMPTOMS METS Supine 88 124/80 98 Standing 98 130/90 98 1 3 1.7 10 129 168/88 96 4.5 2 6 2.5 12 148 166/92 96 7 3 9 3.4 14 154 166/92 10 1 min recovery 130 180/78 96 3 min recovery 102 148/82 96 6 min recovery 96 122/80 97 Patient tolerated stress test well, occasional rare pvcs, stopped per patient request secondary to fatigue, patient ambulated of own accord, no complaints.
== END 2025-07-16 03:25 ==
LOC: DI 03:05
PROVIDERS: PCP Family Medicine; Visit Provider Internal Medicine Cardiovascular Disease
DX: R07.9 Chest pain, unspecified (principal)
CPT/HCPCS: 93017

== ENCOUNTER 2025-07-17 03:12 | Outpatient (CLI) | payer BC, SELFPAY ==
[2025-07-17 09:21] LABS: HCT 36.6 % (36.0-46.0); HGB 12.4 g/dL (11.2-15.7); MCH 30.7 pg (27.0-33.0); MCHC 33.9 % (32.0-36.0); MCV 91 fL (80-95); MPV 9.0 fL (8.0-11.0); Platelet Count 436 10^3/uL (130-400); RBC 4.04 10^6/uL (3.93-5.22); RDW 12.8 % (11.7-14.6); RDW-SD 42.3 fL; WBC 10.33 10^3/uL (4.4-10.8)
[2025-07-17 10:33] LABS: ALT 15 U/L (14-59); AST 18 U/L (15-37); Albumin 3.9 g/dL (3.4-5.0); Alkaline Phosphatase 132 U/L (46-116); Anion Gap 8.9 mmol/L (3-11); BUN 14 mg/dL (7-18); Bilirubin, Total 0.4 mg/dL (0.2-1.0); CO2 30.1 mmol/L (21.0-32.0); Calcium 9.6 mg/dL (8.5-10.1); Calculated LDL 126 mg/dL (<100); Chloride 106 mmol/L (98-107); Cholesterol 205 mg/dL (<200); Estimated GFR 104.63 (mL/min/1.73m2); Glucose 103 mg/dL (74-106); HDL Cholesterol 55 mg/dL (>or=50); Potassium 4.1 mmol/L (3.5-5.1); Sodium 145 mmol/L (136-145); TSH (W/Ref FT4) 1.98 uIU/mL (0.36-3.74); Total Protein 7.6 g/dL (6.4-8.2); Triglyceride 122 mg/dL (<150)
[2025-07-17 11:11] LABS: Hemoglobin A1C 5.3 % (<5.7)
== END 2025-07-17 03:13 | disposition home or self-care (01) ==
LOC: LBO 03:12
PROVIDERS: PCP Family Medicine; Visit Provider Family Medicine
DX: I10 Essential (primary) hypertension (principal); R07.9 Chest pain, unspecified; Z13.1 Encounter for screening for diabetes mellitus; E03.9 Hypothyroidism, unspecified; Z00.00 Encounter for general adult medical examination without abnormal findings
CPT/HCPCS: 36415; 80053; 80061; 85027; 83036; 84443